=== PATIENT | male | born 1935 | race Caucasian/White ===

== ENCOUNTER 2017-05-15 22:39 | Inpatient (IN) | payer OTHER ==
[2017-05-15] MEDS ORDERED: ASPIRIN 81 MG CHEWABLE TABLETS PO ONE (22:58)
--- NOTE | 2017-05-15 22:58 | PDOC ---
Rapid Medical Evaluation Time Seen by Provider: 05/15/17 22:54 Medical Evaluation: 05/15/17 22:54 I have performed a brief in-person evaluation of this patient. The patient presents with a chief complaint of: 25 days cough, SOB, dypsnea on exertion and orthopnea, intermittent swelling to legs x 1 month Pertinent physical exam findings: edema to b/l legs, expiratory wheezing b/l I have ordered the following: cardiac workup The patient will proceed to the ED for further evaluation. Discharge Disposition - Diagnosis Shortness of breath - Referrals - Patient Instructions - Post Discharge Activity
[2017-05-15] MEDS ORDERED: ASPIRIN 81 MG CHEWABLE TABLETS ONE (23:06)
[2017-05-16 00:48] LABS: BASO % 0.6 % (0-2.0); HEMATOCRIT 30.2 % (35.4-49); HEMOGLOBIN 9.3 GM/dL (11.7-16.9); LYMPH % 19.7 % (8-40); MCHC 30.7 g/dl (32.0-35.9); MEAN CELL VOLUME 81.7 fl (80-96); MEAN PLT VOLUME 7.1 fl (7.5-11.1); MONO % 11.4 % (3.8-10.2); NEUT % 66.3 % (42.8-82.8); PLATELET COUNT 183 K/MM3 (134-434); RDW 20.9 % (11.9-15.9); WHITE BLOOD COUNT 5.5 K/mm3 (4.0-10.0)
[2017-05-16 01:01] LABS: INR 1.24 (0.82-1.09)
[2017-05-16 01:11] LABS: ALBUMIN 3.5 g/dl (3.4-5.0); ANION GAP 12 (8-16); BILIRUBIN,TOTAL 0.6 mg/dL (0.2-1.0); BLOOD UREA NITROGEN 58 mg/dL (7-18); CALCIUM 8.6 mg/dL (8.5-10.1); CHLORIDE 114 mmol/L (98-107); CO2 18 mmol/L (21-32); CREATININE 5.4 mg/dL (0.7-1.3); GLUCOSE,RANDOM 85 mg/dL (74-106); MAGNESIUM 1.7 mg/dL (1.8-2.4); SGOT/AST 23 U/L (15-37); SGPT/ALT 25 U/L (12-78); SODIUM 144 mmol/L (136-145); TOT PROT 6.7 g/dl (6.4-8.2)
[2017-05-16 01:14] LABS: ALK PHOS 151 U/L (45-117); N-TERMINAL BNP 28846.07 pg/ml (5-450)
--- NOTE | 2017-05-16 01:31 | PDOC ---
History of Present Illness - General Chief Complaint: Shortness of Breath Stated Complaint: S.O.B Time Seen by Provider: 05/15/17 22:54 - History of Present Illness Initial Comments: 05/16/17 02:13 The patient is an 82 year old male with a significant PMH of AF on eliquis ( compliant), renal transplant 2007, HLD, HTN, BPH, and IDDM who was transported to the ED from the airport complaining of shortness of breath and cough. The patient was returning from the [place] and had difficulty breathing at the airport at which point he was brought here by his son. The patient reports having a progressive non-productive cough and shortness of breath for 20 days. The patient reports associated symptom of swelling in the legs b/l. The patient denies chest pain, headache, and dizziness. He receives all of his care at [facility]. Denies fevers, chills, nausea, vomiting, diarrhea, and constipation. Denies dysuria, frequency, urgency, and hematuria. Allergies: NKA Past surgical history: Renal transplant 10 years ago. Medications: Torsemide, Tacrolimus, Insulin, eliquis, labetalol Social history: No reported cigarette, alcohol, or drug use. PCP: Dr. Leary ([facility] in [place]) Past History - Past Medical History Allergies/Adverse Reactions: Allergies Allergy/AdvReac Type Severity Reaction Status Date / Time No Known Allergies Allergy Verified 05/15/17 22:58 COPD: No Diabetes: Yes - Suicide/Smoking/Psychosocial Hx Smoking History: Never smoked Have you smoked in the past 12 months: No If you are a former smoker, when did you quit?: 25 yrs ago Information on smoking cessation initiated: No Hx Alcohol Use: No Drug/Substance Use Hx: No Substance Use Type: None Review of Systems - Review of Systems Comments:: 05/16/17 02:13 GENERAL/CONSTITUTIONAL: No fever or chills. No weakness. HEAD, EYES, EARS, NOSE AND THROAT: No change in vision. No ear pain or discharge. No sore throat. GASTROINTESTINAL: No nausea, vomiting, diarrhea or constipation. GENITOURINARY: No dysuria, frequency, or change in urination. CARDIOVASCULAR: (+) Shortness of breath. No chest pain. RESPIRATORY: No cough, wheezing, or hemoptysis. MUSCULOSKELETAL: (+) Swelling in LE. No joint or muscle pain. No neck or back pain. SKIN: No rash NEUROLOGIC: No headache, vertigo, loss of consciousness, or change in strength/ sensation. ENDOCRINE: No increased thirst. No abnormal weight change. HEMATOLOGIC/LYMPHATIC: No anemia, easy bleeding, or history of blood clots. ALLERGIC/IMMUNOLOGIC: No hives or skin allergy. *Physical Exam - Vital Signs Last Vital Signs Temp Pulse Resp BP Pulse Ox 98.0 F 108 H 22 163/109 97 05/15/17 22:59 05/15/17 22:59 05/15/17 22:59 05/15/17 22:59 05/15/17 22:59 - Physical Exam Comments: 05/16/17 02:14 GENERAL: Speaking in 4-5 word sentences. Awake, alert, and fully oriented. HEAD: No signs of trauma EYES: PERRLA, EOMI, sclera anicteric, conjunctiva clear ENT: Auricles normal inspection, hearing grossly normal, nares patent, oropharynx clear without exudates. Moist mucosa NECK: Normal ROM, supple, no lymphadenopathy, JVD, or masses LUNGS: (+) Diminished breath sounds at bases of lungs. No wheezes, and no crackles HEART: Irregularly irregular, normal S1 and S2, no murmurs, rubs or gallops ABDOMEN: (+)Palpable non tender transplanted kidney with overlying scar c/d/i. Soft, nontender, normoactive bowel sounds. No guarding, no rebound. No masses EXTREMITIES: (+)LUE fistula. (+) B/l LE 1+ pitting edema, symmetric. Normal range of motion. No clubbing or cyanosis. No cords, erythema, or tenderness BACK: No midline spinal tenderness in cervical/thoracic/lumbar region NEUROLOGICAL: Normal speech, cranial nerves intact, negative pronator drift, 5/ 5 strength in all 4 extremities, normal sensation to light touch in all 4 extremities, normal cerebellar exam. SKIN: Warm, Dry, normal turgor, no rashes or lesions noted. Heart Score/ECG Review #1 05/16/17 02:14 Twelve-lead EKG was performed and reviewed by me. Atrial fibrillation with rapid ventricular response, rate 106. Normal axis. No ST elevations ED Treatment Course - LABORATORY CBC & Chemistry Diagram: 05/16/17 00:41 04/11/18 00:41 - ADDITIONAL ORDERS Additional order review: Laboratory Results 05/16/17 05/16/17 00:41 00:41 PT with INR 14.00 H INR 1.24 H Sodium 144 Potassium 5.0 Chloride 114 H Carbon Dioxide 18 L Anion Gap 12 BUN 58 H Creatinine 5.4 H Creat Clearance w eGFR 10.27 Random Glucose 85 Calcium 8.6 Magnesium 1.7 L Total Bilirubin 0.6 AST 23 ALT 25 Alkaline Phosphatase 151 H Creatine Kinase 265 Troponin I < 0.02 B-Natriuretic Peptide 38735.07 H Total Protein 6.7 Albumin 3.5 05/16/17 00:41 RBC 3.70 L MCV 81.7 MCHC 30.7 L RDW 20.9 H MPV 7.1 L Neutrophils % 66.3 Lymphocytes % 19.7 Monocytes % 11.4 H Eosinophils % 2.0 Basophils % 0.6 - Medications Given in the ED: ED Medications Discontinued Medications Generic Name Dose Route Start Last Admin Trade Name Freq PRN Reason Stop Dose Admin Aspirin 162 mg 05/15/17 22:58 05/15/17 23:08 Asa - PO 05/15/17 22:59 162 mg ONCE ONE Administration Medical Decision Making - Medical Decision Making 05/16/17 02:16 82yo M hx MMP including renal transplant, CHF, AF on eliquis presents to the ED c/o 20 days of progressive SOB, dyspnea, LE edema. Vitals initially with tachycardia, on my exam HR 90. Exam with diminished BS at the bases with 1+ symmetric LE edema. Likely CHF given hx, LE edema, diminished BS, elevated BNP and CXR thus far with cephalization PE is a thought however, flight from is about 4 hours, and pt states he was ambulating on the flight. In addition with sxs for 20 days, unlikely to be PE. Pt also already anticoagulated on eliquis and compliant. Will obtain LE US to r/ o DVT although edema is symmetric. ACS also a possibility but trop negative, EKG non ischemic. Case discussed with Dr. Maldonado, pt admitted to [facility] obs Case discussed in detail with admitting physician including history, physical exam and ancillary studies. Admitting physician has assumed care for the patient, will follow all pending diagnostics and will complete the evaluation and treatment. *DC/Admit/Observation/Transfer Diagnosis at time of Disposition: Shortness of breath - Discharge Dispostion Admit: Yes - Referrals Referrals: ON STAFF,NOT [Primary Care Provider] - - Patient Instructions - Post Discharge Activity - Attestations Physician Attestion: 05/16/17 02:24 I, Dr. Keerthi Russo MD, attest that this document has been prepared under my direction and personally reviewed by me in its entirety. I further attest, that it accurately reflects all work, treatment, procedures and medical decision -making performed by me.
[2017-05-16] MEDS ORDERED: MAGNESIUM OXIDE 400 MG TABLET (FP) PO ONE (02:35)
--- NOTE | 2017-05-16 02:38 | HP ---
CHIEF COMPLAINT: sob PCP: Dr. Mcnamara HISTORY OF PRESENT ILLNESS: This is a 82 year old male with a past medical history of CHF, HTN, atrial fibrillation on eliquis, Renal transplant (ten years ago), presents with shortness of the breath for the last 20 days. Patient was in the [place] for the last month. He was on plane today coming back to the [place], brought in by his son straight from plane, due to persistent shortness of breath. He endorses dyspnea on exertion, bilateral leg swelling, orthopnea, occasional palpitations. Denies chest pain, n, v, lightheadedness, diaphoresis. All doctors he follows at [facility]. Had renal transplant in [place] over ten years ago, due to hypertension and diabetes, as per patient. On tacrolimus. ER course was notable for: (1)elevated bnp (2)cxr with congestion (3)anemia; elevated creatinine baseline unknown Recent Travel: PAST MEDICAL HISTORY: PAST SURGICAL HISTORY: Social History: Smoking: Alcohol: Drugs: Family History: Allergies No Known Allergies Allergy (Verified 05/15/17 22:58) HOME MEDICATIONS: REVIEW OF SYSTEMS CONSTITUTIONAL: Absent: fever, chills, diaphoresis, generalized weakness, malaise, loss of appetite, weight change HEENT: Absent: rhinorrhea, nasal congestion, throat pain, throat swelling, difficulty swallowing, mouth swelling, ear pain, eye pain, visual changes CARDIOVASCULAR: POsitive: peripheral edema Absent: chest pain, syncope, palpitations, irregular heart rate, lightheadedness , RESPIRATORY: Positive: cough, shortness of breath, dyspnea with exertion, orthopnea, Absent: wheezing, stridor, hemoptysis GASTROINTESTINAL: Absent: abdominal pain, abdominal distension, nausea, vomiting, diarrhea, constipation, melena, hematochezia GENITOURINARY: Absent: dysuria, frequency, urgency, hesitancy, hematuria, flank pain, genital pain MUSCULOSKELETAL: Absent: myalgia, arthralgia, joint swelling, back pain, neck pain SKIN: Absent: rash, itching, pallor HEMATOLOGIC/IMMUNOLOGIC: Absent: easy bleeding, easy bruising, lymphadenopathy, frequent infections ENDOCRINE: Absent: unexplained weight gain, unexplained weight loss, heat intolerance, cold intolerance NEUROLOGIC: Absent: headache, focal weakness or paresthesias, dizziness, unsteady gait, seizure, mental status changes, bladder or bowel incontinence PSYCHIATRIC: Absent: anxiety, depression, suicidal or homicidal ideation, hallucinations. PHYSICAL EXAMINATION Vital Signs - 24 hr 05/15/17 22:59 Temperature 98.0 F Pulse Rate 108 H Respiratory 22 Rate Blood Pressure 163/109 O2 Sat by Pulse 97 Oximetry (%) GENERAL: Awake, alert, and fully oriented, in no acute distress. HEAD: Normal with no signs of trauma. NECK: Normal range of motion, supple without lymphadenopathy, JVD, or masses. LUNGS: Breath sounds equal, clear to auscultation bilaterally. No wheezes, and no crackles. No accessory muscle use. HEART: Regular rate and irregular rhythm, normal S1 and S2 without murmur, rub or gallop. ABDOMEN: Soft, nontender, not distended, normoactive bowel sounds, no guarding, no rebound, no masses. No hepatomegaly or splenomegaly. MUSCULOSKELETAL: Normal range of motion at all joints. No bony deformities or tenderness. No CVA tenderness. UPPER EXTREMITIES: 2+ pulses, warm, well-perfused. No cyanosis. No clubbing. No peripheral edema. LOWER EXTREMITIES: 2+ pulses, warm, well-perfused. No calf tenderness. 2+ LE edema NEUROLOGICAL: Cranial nerves II-XII intact. Normal speech. SKIN: Warm, dry, normal turgor, no rashes or lesions noted, normal capillary refill. Laboratory Results - last 24 hr 05/16/17 05/16/17 05/16/17 00:41 00:41 00:41 WBC 5.5 RBC 3.70 L Hgb 9.3 L Hct 30.2 L MCV 81.7 MCH 25.0 L MCHC 30.7 L RDW 20.9 H Plt Count 183 MPV 7.1 L Neutrophils % 66.3 Lymphocytes % 19.7 Monocytes % 11.4 H Eosinophils % 2.0 Basophils % 0.6 PT with INR 14.00 H INR 1.24 H Sodium 144 Potassium 5.0 Chloride 114 H Carbon Dioxide 18 L Anion Gap 12 BUN 58 H Creatinine 5.4 H Creat Clearance w eGFR 10.27 Random Glucose 85 Calcium 8.6 Magnesium 1.7 L Total Bilirubin 0.6 AST 23 ALT 25 Alkaline Phosphatase 151 H Creatine Kinase 265 Creatine Kinase Index 0.9 CK-MB (CK-2) 2.412 Troponin I < 0.02 B-Natriuretic Peptide 28637.07 H Total Protein 6.7 Albumin 3.5 ASSESSMENT/PLAN: This is a 82 year old male with a significant medical history of of atrial fibrillation on eliquis, DM, HTN, s/p renal transplant, presented with sob, admitted for acute exacerbation of CHF. #acute exacerbation of CHF: -cardiac tele -strict I/O -daily weights -ecg appreciated ; atrial fib -echo pending -lasix 40mg IV daily -cardio consulted #acute vs chronic renal failure? with hx of renal transplant; n/o failing kidney -trend Cr -ua -urine lytes; magy feNA -renal/bladder US -renal consult -tacrolimus level -hold tacrolimus for now -cont home mycophenolate; f/u level -cont home bicarb -renal consult #atrial fibrillation with rapid response -rate control -echo -cont eliquis 2.5bid -cardio consulted #DM -take long acting 20U HS as home -cont levemir 20U HS -insulin ss; bgm ACHS #HTN: -cont home labetalol Visit type - Emergency Visit Emergency Visit: Yes Care time: The patient presented to the Emergency Department on the above date and was hospitalized for further evaluation of their emergent condition. - New Patient This patient is new to me today: Yes Date on this admission: 05/16/17 - Critical Care Critical Care patient: No Hospitalist Screening - Colonoscopy Questionnaire Colonoscopy Questionnaire: Colonoscopy Questionnaire - Patient: 50 - 75 years old and never had a screening colonoscopy: No History of colon or rectal polyps, or CA: Unknown History of IBD, Crohn's disease or UC: Unknown History of abdominal radiation therapy as a child: Unknown - Relative: 1 with colon or rectal CA, or polyps at age 60 or younger: Unknown Colon or rectal CA diagnosed at age 45 or younger: Unknown Multiple relatives with colon or rectal CA: Unknown - Outcome: Screening Result: Negative Screen
--- NOTE | 2017-05-16 02:53 | PN ---
Teaching Attending Note Name of Resident: Arcelia Richardson ATTENDING PHYSICIAN STATEMENT I saw and evaluated the patient. I reviewed the resident's note and discussed the case with the resident. I agree with the resident's findings and plan as documented. SUBJECTIVE: 82 M hx, of CHF, Renal tx 10 years ago, A- Fib On Eliquis, States he has had SOB X 20 days. Also with associated Bilateral LE edema. Denies any chest pain or pressure. States he flew into airport today. Notes he has been complient with his Eliquis. Denies any chest pain or pressure. OBJECTIVE: Physical: VS: Vital Signs Period Temp Pulse Resp BP Sys/Wyatt Pulse Ox Last 24 Hr 98.0 F 108 22 163/109 97 GEN: NAD, Resting in bed, AA0X3, Speaking full sentences HEENT: NCAT, PERRL, Throat without erythema or exudates CARD: IRR S1, S2 RESP: Bilateral crackles ABD: BSx4, NTD to Palpation EXT: + 2 Pitting Edema bilateral and equal. CBCD WBC 5.5 K/mm3 (4.0-10.0) 05/16/17 00:41 RBC 3.70 M/mm3 (4.00-5.60) L 05/16/17 00:41 Hgb 9.3 GM/dL (11.7-16.9) L 05/16/17 00:41 Hct 30.2 % (35.4-49) L 05/16/17 00:41 MCV 81.7 fl (80-96) 05/16/17 00:41 MCHC 30.7 g/dl (32.0-35.9) L 05/16/17 00:41 RDW 20.9 % (11.9-15.9) H 05/16/17 00:41 Plt Count 183 K/MM3 (134-434) 05/16/17 00:41 MPV 7.1 fl (7.5-11.1) L 05/16/17 00:41 CMP Sodium 144 mmol/L (136-145) 05/16/17 00:41 Potassium 5.0 mmol/L (3.5-5.1) 05/16/17 00:41 Chloride 114 mmol/L (98-107) H 05/16/17 00:41 Carbon Dioxide 18 mmol/L (21-32) L 05/16/17 00:41 Anion Gap 12 (8-16) 05/16/17 00:41 BUN 58 mg/dL (7-18) H 05/16/17 00:41 Creatinine 5.4 mg/dL (0.7-1.3) H 05/16/17 00:41 Creat Clearance w eGFR 10.27 (>60) 05/16/17 00:41 Random Glucose 85 mg/dL (74-106) 05/16/17 00:41 Calcium 8.6 mg/dL (8.5-10.1) 05/16/17 00:41 Total Bilirubin 0.6 mg/dL (0.2-1.0) 05/16/17 00:41 AST 23 U/L (15-37) 05/16/17 00:41 ALT 25 U/L (12-78) 05/16/17 00:41 Alkaline Phosphatase 151 U/L (45-117) H 05/16/17 00:41 Total Protein 6.7 g/dl (6.4-8.2) 05/16/17 00:41 Albumin 3.5 g/dl (3.4-5.0) 05/16/17 00:41 CARDIAC ENZYMES Creatine Kinase 265 IU/L (39-308) 05/16/17 00:41 Troponin I < 0.02 ng/ml (0.00-0.05) 05/16/17 00:41 EKG A-FiB CXR: Bilateral congestion ASSESSMENT AND PLAN: 82 M hx, of CHF, Renal tx 10 years ago, A- Fib On Eliquis, States he has had SOB X 20 days. Also with associated Bilateral LE edema, found to be in congestive heart failure 1.) Shortness of breath - Most Likely Acute CHF Exacerbation, Less likely PE complient with Eliquis - Echo for EF to see if Systolic HF - Lasix 40 IV - Strict I/O - Daily Weights - Na/Fluid Restrict - Trend Trop/Ekg - Cardio Consult 2.) Bilateral LE Edema - Duplex LE 3.) ARF- Hx. of Renal Tx - U [place] - Renal Us - Tacro Level - C/w Tacro/PRed/Mycophenlate - Nephro consult 4.) A- Fib - Rate Controlled - C/W BB and Eliquis 5.) Anemia Normocytic - B12, Folate, Fe studies - Hold Procrit for now 5.) DVT Ppx - On Eliquis Place in Med-Tele
[2017-05-16] MEDS ORDERED: TAMSULOSIN HCL 0.4 MG CAP.ER.24H (FP) PO ONE (03:08)
[2017-05-16] MEDS ORDERED: MAGNESIUM OXIDE 400 MG TABLET (FP) ONE (04:17)
[2017-05-16] MEDS ORDERED: ATORVASTATIN CA 40 MG TABLET (FP) ONE (04:17)
[2017-05-16] MEDS ORDERED: TAMSULOSIN HCL 0.4 MG CAP.ER.24H (FP) ONE (04:17)
[2017-05-16] MEDS: ATORVASTATIN CA 20 MG TABLET (FP) PO SCH ×2 (04:29→21:51)
[2017-05-16 04:35] LABS: URINE APPEARANCE SLCLOUDY; URINE BILIRUBIN NEGATIVE (<2.0 mg/dL); URINE COLOR YELLOW; URINE GLUCOSE (UA) NEGATIVE (NEGATIVE); URINE KETONE NEGATIVE (NEGATIVE); URINE NITRITE NEGATIVE (NEGATIVE); URINE UROBILINOGEN NEGATIVE mg/dL (0.2-1.0)
[2017-05-16 04:49] LABS: URINE LEUK ESTERASE 3+ (NEGATIVE); URINE PROTEIN 2+ (NEGATIVE)
[2017-05-16 04:53] LABS: EPI CELLS RARE /HPF (FEW); URINE BACTERIA RARE /hpf (NONE SEEN); URINE MUCUS RARE
[2017-05-16] MEDS: SODIUM BICARBONATE 325 MG TABLET PO SCH ×3 (07:30→22:29)
[2017-05-16 08:25] LABS: BASO % 0.5 % (0-2.0); EOS % 1.9 % (0-4.5); HEMATOCRIT 29.4 % (35.4-49); LYMPH % 19.5 % (8-40); MCH 24.8 pg (25.7-33.7); MCHC 30.6 g/dl (32.0-35.9); MEAN CELL VOLUME 81.2 fl (80-96); MEAN PLT VOLUME 7.8 fl (7.5-11.1); NEUT % 67.1 % (42.8-82.8); PLATELET COUNT 189 K/MM3 (134-434); RBC 3.62 M/mm3 (4.00-5.60); RDW 21.1 % (11.9-15.9); WHITE BLOOD COUNT 4.8 K/mm3 (4.0-10.0)
[2017-05-16] MEDS: INSULIN SLIDING SCALE (NOVOLOG) 1 VIAL SQ SCH ×4 (08:40→21:55)
[2017-05-16 08:57] LABS: ALBUMIN 3.3 g/dl (3.4-5.0); ANION GAP 11 (8-16); BLOOD UREA NITROGEN 62 mg/dL (7-18); CALCIUM 8.3 mg/dL (8.5-10.1); CHLORIDE 115 mmol/L (98-107); CO2 18 mmol/L (21-32); POTASSIUM 5.2 mmol/L (3.5-5.1); SODIUM 144 mmol/L (136-145)
[2017-05-16 09:01] LABS: ALK PHOS 144 U/L (45-117); BILIRUBIN,TOTAL 0.5 mg/dL (0.2-1.0); CHOLESTEROL 116 mg/dL (50-200); CREATININE 5.2 mg/dL (0.7-1.3); GLUCOSE,RANDOM 84 mg/dL (74-106); HDL CHOLESTEROL 39 mg/dL (40-60); MAGNESIUM 1.7 mg/dL (1.8-2.4); PHOSPHOROUS 4.4 mg/dL (2.5-4.9); SGOT/AST 25 U/L (15-37); SGPT/ALT 25 U/L (12-78); TOT PROT 6.1 g/dl (6.4-8.2); TRIGLYCERIDES 96 mg/dL (35-160)
--- NOTE | 2017-05-16 09:37 | CON.CARD ---
Consult Consult Specialty:: Cardiology - History of Present Illness History of Present Illness: 82 M hx, of CHF, Renal tx 10 years ago, A- Fib On Eliquis, States he has had SOB X 20 days. Also with associated Bilateral LE edema. Denies any chest pain or pressure. States he flew into airport today. Notes he has been complient with his Eliquis. Denies any chest pain or pressure. 82 yo M with PMHx of AF on eliquis (compliant), renal transplant 2007, HLD, HTN , BPH, and IDDM who was transported to the ED from the airport complaining of MCCLURE and cough. The patient was returning from the [facility] [place] and had difficulty breathing at the airport at which point he was brought here by his son. The patient reports having a progressive non-productive cough and shortness of breath for 20 days. The patient reports associated symptom of swelling in the legs b/l.He endorses increased orthopnea requiring 2 pillows at night. Denies increase in salt intake. He receives all of his care at [facility]. He last saw his line locator prior to his trip appox. 1 month ago and he states that at that time his Cr. was 5. The patient denies chest pain , headache, and dizziness. - History Source History Provided By: Patient, Medical Record - Past Medical History Cardio/Vascular: Yes: HTN - Alcohol/Substance Use Hx Alcohol Use: No - Smoking History Smoking history: Never smoked Have you smoked in the past 12 months: No If you are a former smoker, when did you quit?: 25 yrs ago Home Medications - Allergies Allergies/Adverse Reactions: Allergies Allergy/AdvReac Type Severity Reaction Status Date / Time No Known Allergies Allergy Verified 05/15/17 22:58 - Home Medications Home Medications: Ambulatory Orders Apixaban [Eliquis] 2.5 mg PO DAILY 05/16/17 Epoetin Rich [Procrit] 20,000 unit IJ WEEKLY 05/16/17 Labetalol HCl 300 mg PO TID 05/16/17 Mycophenolate Mofetil [Cellcept -] 250 mg PO BID 05/16/17 Nifedipine [Procardia Xl] 30 mg PO DAILY 05/16/17 Simvastatin 20 mg PO DAILY 05/16/17 Sodium Bicarbonate 10 gr PO BID 05/16/17 Tacrolimus 1 mg PO BID 05/16/17 Tamsulosin HCl [Flomax -] 0.4 mg PO 05/16/17 Torsemide 20 mg PO DAILY 05/16/17 Review of Systems - Review of Systems Constitutional: reports: No Symptoms Eyes: reports: No Symptoms HENT: reports: No Symptoms Neck: reports: No Symptoms Cardiovascular: reports: Edema Respiratory: reports: Orthopnea, PND, SOB Gastrointestinal: reports: No Symptoms Genitourinary: reports: No Symptoms Breasts: reports: No Symptoms Reported Musculoskeletal: reports: No Symptoms Integumentary: reports: No Symptoms Neurological: reports: No Symptoms Endocrine: reports: No Symptoms Hematology/Lymphatic: reports: No Symptoms Psychiatric: reports: No Symptoms Vital Signs: Vital Signs Temperature 98.4 F 05/16/17 08:55 Pulse Rate 97 H 05/16/17 08:55 Respiratory Rate 20 05/16/17 08:55 Blood Pressure 151/93 05/16/17 09:13 O2 Sat by Pulse Oximetry (%) 96 05/16/17 08:55 Constitutional: Yes: Well Nourished, No Distress, Calm Eyes: Yes: WNL, Conjunctiva Clear, EOM Intact HENT: Yes: WNL, Atraumatic, Normocephalic Neck: Yes: WNL, Supple, Trachea Midline Respiratory: Yes: WNL, Regular, CTA Bilaterally Gastrointestinal: Yes: WNL, Normal Bowel Sounds Renal/: Yes: WNL Cardiovascular: Yes: Pulse Irregular Musculoskeletal: Yes: WNL Extremities: Yes: WNL Edema: Yes Edema: LLE: 2+, RLE: 2+ Integumentary: Yes: WNL Neurological: Yes: WNL, Alert, Oriented ...Motor Strength: WNL Psychiatric: Yes: WNL, Alert, Oriented - Other Data Labs, Other Data: CBC, BMP 05/16/17 07:14 05/16/17 07:14 INR, PTT INR 1.24 (0.82-1.09) H 05/16/17 00:41 Troponin, BNP 05/16/17 05/16/17 00:41 07:14 Troponin I < 0.02 0.02 B-Natriuretic Peptide 93532.07 H Troponin, BNP 05/16/17 05/16/17 00:41 07:14 Troponin I < 0.02 0.02 B-Natriuretic Peptide 96737.07 H Laboratory Tests 05/16/17 05/16/17 05/16/17 00:41 00:41 00:41 WBC 5.5 RBC 3.70 L Hgb 9.3 L Hct 30.2 L MCV 81.7 MCH 25.0 L MCHC 30.7 L RDW 20.9 H Plt Count 183 MPV 7.1 L Neutrophils % 66.3 Lymphocytes % 19.7 Monocytes % 11.4 H Eosinophils % 2.0 Basophils % 0.6 PT with INR 14.00 H INR 1.24 H Sodium 144 Potassium 5.0 Chloride 114 H Carbon Dioxide 18 L Anion Gap 12 BUN 58 H Creatinine 5.4 H Creat Clearance w eGFR 10.27 POC Glucometer Random Glucose 85 Calcium 8.6 Phosphorus Magnesium 1.7 L Total Bilirubin 0.6 AST 23 ALT 25 Alkaline Phosphatase 151 H Creatine Kinase 265 Creatine Kinase Index 0.9 CK-MB (CK-2) 2.412 Troponin I < 0.02 B-Natriuretic Peptide 23981.07 H Total Protein 6.7 Albumin 3.5 Triglycerides Cholesterol Total LDL Cholesterol HDL Cholesterol TSH Urine Color Urine Appearance Urine pH Ur Specific Jew[place] Urine Protein Urine Glucose (UA) Urine Ketones Urine Blood Urine Nitrite Urine Bilirubin Urine Urobilinogen Ur Leukocyte Esterase Urine WBC (Auto) Urine RBC (Auto) Ur Epithelial Cells Urine Bacteria Urine Mucus Ur Random Sodium Ur Random Urea Nitrogn Urine Creatinine 05/16/17 05/16/17 05/16/17 04:14 04:14 04:14 WBC RBC Hgb Hct MCV MCH MCHC RDW Plt Count MPV Neutrophils % Lymphocytes % Monocytes % Eosinophils % Basophils % PT with INR INR Sodium Potassium Chloride Carbon Dioxide Anion Gap BUN Creatinine Creat Clearance w eGFR POC Glucometer Random Glucose Calcium Phosphorus Magnesium Total Bilirubin AST ALT Alkaline Phosphatase Creatine Kinase Creatine Kinase Index CK-MB (CK-2) Troponin I B-Natriuretic Peptide Total Protein Albumin Triglycerides Cholesterol Total LDL Cholesterol HDL Cholesterol TSH Urine Color Yellow Urine Appearance Slcloudy Urine pH 6.0 Ur Specific Jewett 1.011 Urine Protein 2+ H Urine Glucose (UA) Negative Urine Ketones Negative Urine Blood 1+ H Urine Nitrite Negative Urine Bilirubin Negative Urine Urobilinogen Negative Ur Leukocyte Esterase 3+ H Urine WBC (Auto) 215 Urine RBC (Auto) 3 Ur Epithelial Cells Rare Urine Bacteria Rare Urine Mucus Rare Ur Random Sodium 58 Ur Random Urea Nitrogn 467 Urine Creatinine 81.0 04/12/2305/16/17 05/16/17 07:14 07:14 07:14 WBC 4.8 RBC 3.62 L Hgb 9.0 L Hct 29.4 L MCV 81.2 MCH 24.8 L MCHC 30.6 L RDW 21.1 H Plt Count 189 MPV 7.8 Neutrophils % 67.1 Lymphocytes % 19.5 Monocytes % 11.0 H Eosinophils % 1.9 Basophils % 0.5 PT with INR INR Sodium 144 Potassium 5.2 H Chloride 115 H Carbon Dioxide 18 L Anion Gap 11 BUN 62 H Creatinine 5.2 H Creat Clearance w eGFR 10.73 POC Glucometer Random Glucose 84 Calcium 8.3 L Phosphorus 4.4 Magnesium 1.7 L Total Bilirubin 0.5 AST 25 ALT 25 Alkaline Phosphatase 144 H Creatine Kinase Creatine Kinase Index CK-MB (CK-2) Troponin I 0.02 B-Natriuretic Peptide Total Protein 6.1 L Albumin 3.3 L Triglycerides 96 Cholesterol 116 Total LDL Cholesterol 70 HDL Cholesterol 39 L TSH 1.87 Urine Color Urine Appearance Urine pH Ur Specific Jewett Urine Protein Urine Glucose (UA) Urine Ketones Urine Blood Urine Nitrite Urine Bilirubin Urine Urobilinogen Ur Leukocyte Esterase Urine WBC (Auto) Urine RBC (Auto) Ur Epithelial Cells Urine Bacteria Urine Mucus Ur Random Sodium Ur Random Urea Nitrogn Urine Creatinine 05/16/17 05/16/17 08:38 10:59 WBC RBC Hgb Hct MCV MCH MCHC RDW Plt Count MPV Neutrophils % Lymphocytes % Monocytes % Eosinophils % Basophils % PT with INR INR Sodium Potassium Chloride Carbon Dioxide Anion Gap BUN Creatinine Creat Clearance w eGFR POC Glucometer 113.91931 109.13260 Random Glucose Calcium Phosphorus Magnesium Total Bilirubin AST ALT Alkaline Phosphatase Creatine Kinase Creatine Kinase Index CK-MB (CK-2) Troponin I B-Natriuretic Peptide Total Protein Albumin Triglycerides Cholesterol Total LDL Cholesterol HDL Cholesterol TSH Urine Color Urine Appearance Urine pH Ur Specific Jewett Urine Protein Urine Glucose (UA) Urine Ketones Urine Blood Urine Nitrite Urine Bilirubin Urine Urobilinogen Ur Leukocyte Esterase Urine WBC (Auto) Urine RBC (Auto) Ur Epithelial Cells Urine Bacteria Urine Mucus Ur Random Sodium Ur Random Urea Nitrogn Urine Creatinine Imaging - Results Chest X-ray: Image Reviewed (chf CM) EKG: Image Reviewed (af rep abn) Assessment/Plan CHF chronic renal failure htn hlp dm plan echo telemetry renal consult IV lasix as per renal CAD evaluation when stable unless done recently
--- NOTE | 2017-05-16 09:59 | CONSULT ---
Consultation: REQUESTING PROVIDER: Hospitalist CONSULT REQUEST: We have been asked to medically evaluate this patient for JAQUELINE. PCP: Nephologist- Dr. Leary ([facility] in [place]) HISTORY OF PRESENT ILLNESS: 82 yo M with PMHx of AF on eliquis (compliant), renal transplant 2007, HLD, HTN , BPH, and IDDM who was transported to the ED from the airport complaining of MCCLURE and cough. The patient was returning from the [place] and had difficulty breathing at the airport at which point he was brought here by his son. The patient reports having a progressive non-productive cough and shortness of breath for 20 days. The patient reports associated symptom of swelling in the legs b/l.He endorses increased orthopnea requiring 2 pillows at night. Denies increase in salt intake. He receives all of his care at [facility]. He last saw his wellness assistant prior to his trip app[place]. 1 month ago and he states that at that time his Cr. was 5. The patient denies chest pain , headache, and dizziness. Recent Travel: [place]. PAST MEDICAL HISTORY:AF on eliquis (compliant),HLD, HTN, BPH, and IDDM PAST SURGICAL HISTORY:renal transplant 2007 Social History: Smoking:quit 25 yrs ago. 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 Family History:Mother ( of leukemia @75) Father ( of ear cancer? @104) Brother( of throat cancer @75) Allergies No Known Allergies Allergy (Verified 05/15/17 22:58) HOME MEDS: Apixaban [Eliquis] 2.5 mg PO DAILY 05/16/17 Epoetin Rich [Procrit] 20,000 unit IJ WEEKLY 05/16/17 Labetalol HCl 300 mg PO TID 05/16/17 Mycophenolate Mofetil [Cellcept -] 250 mg PO BID 05/16/17 Nifedipine [Procardia Xl] 30 mg PO DAILY 05/16/17 Simvastatin 20 mg PO DAILY 05/16/17 Sodium Bicarbonate 10 gr PO BID 05/16/17 Tacrolimus 1 mg PO BID 05/16/17 Tamsulosin HCl [Flomax -] 0.4 mg PO 05/16/17 Torsemide 20 mg PO DAILY 05/16/17 REVIEW OF SYSTEMS: CONSTITUTIONAL: Absent: fever, chills, diaphoresis, generalized weakness, malaise, loss of appetite, weight change HEENT: Absent: rhinorrhea, nasal congestion, throat pain, throat swelling, difficulty swallowing, mouth swelling, ear pain, eye pain, visual changes CARDIOVASCULAR:+ peripheral edema Absent: chest pain, syncope, palpitations, irregular heart rate, lightheadedness , RESPIRATORY: + cough, shortness of breath, dyspnea with exertion Absent:, orthopnea, wheezing, stridor, hemoptysis GASTROINTESTINAL: Absent: abdominal pain, abdominal distension, nausea, vomiting, diarrhea, constipation, melena, hematochezia GENITOURINARY: Absent: dysuria, frequency, urgency, hesitancy, hematuria, flank pain, genital pain MUSCULOSKELETAL: Absent: myalgia, arthralgia, joint swelling, back pain, neck pain SKIN: Absent: rash, itching, pallor HEMATOLOGIC/IMMUNOLOGIC: Absent: easy bleeding, easy bruising, lymphadenopathy, frequent infections ENDOCRINE: Absent: unexplained weight gain, unexplained weight loss, heat intolerance, cold intolerance NEUROLOGIC: Absent: headache, focal weakness or paresthesias, dizziness, unsteady gait, seizure, mental status changes, bladder or bowel incontinence PSYCHIATRIC: Absent: anxiety, depression, suicidal or homicidal ideation, hallucinations. PHYSICAL EXAMINATION Vital Signs - 24 hr 05/16/17 05/16/17 08:55 09:13 Temperature 98.4 F Pulse Rate Pulse Rate [ 97 H Left Radial] Respiratory 20 Rate Blood Pressure Blood Pressure 169/100 151/93 [Left Arm] O2 Sat by Pulse 96 Oximetry (%) GENERAL: AAOx3, NAD HEAD: NC/AT EYES: PERRLA, EOMI EARS, NOSE, THROAT: Moist mucous membranes. NECK: supple, No JVD LUNGS: biblasilar crackles > R side. Right sided rhonci at base. no wheezing. HEART: Irregualrly irregular, 3/6 MARTINEZ RSB ABDOMEN: Soft,obese, NT,mildly distended, normoactive bowel sounds, no guarding , no rebound,palpable transplanted kidney with scar RLQ MUSCULOSKELETAL: Normal range of motion at all joints. No bony deformities or tenderness. No CVA tenderness. UPPER Ext. : Left sided fistula. LOWER EXTREMITIES: 2+ pulses, warm, well-perfused. No calf tenderness. 2+ Edema bilaterally NEUROLOGICAL: Cranial nerves II-XII intact. Normal speech. PSYCHIATRIC: Cooperative. Good eye contact. Appropriate mood and affect. Laboratory Results - last 24 hr 05/16/17 05/16/17 05/16/17 00:41 00:41 00:41 WBC 5.5 RBC 3.70 L Hgb 9.3 L Hct 30.2 L MCV 81.7 MCH 25.0 L MCHC 30.7 L RDW 20.9 H Plt Count 183 MPV 7.1 L Neutrophils % 66.3 Lymphocytes % 19.7 Monocytes % 11.4 H Eosinophils % 2.0 Basophils % 0.6 PT with INR 14.00 H INR 1.24 H Sodium 144 Potassium 5.0 Chloride 114 H Carbon Dioxide 18 L Anion Gap 12 BUN 58 H Creatinine 5.4 H Creat Clearance w eGFR 10.27 POC Glucometer Random Glucose 85 Calcium 8.6 Phosphorus Magnesium 1.7 L Total Bilirubin 0.6 AST 23 ALT 25 Alkaline Phosphatase 151 H Creatine Kinase 265 Creatine Kinase Index 0.9 CK-MB (CK-2) 2.412 Troponin I < 0.02 B-Natriuretic Peptide 96858.07 H Total Protein 6.7 Albumin 3.5 Triglycerides Cholesterol Total LDL Cholesterol HDL Cholesterol TSH Urine Color Urine Appearance Urine pH Ur Specific [place] Urine Protein Urine Glucose (UA) Urine Ketones Urine Blood Urine Nitrite Urine Bilirubin Urine Urobilinogen Ur Leukocyte Esterase Urine WBC (Auto) Urine RBC (Auto) Ur Epithelial Cells Urine Bacteria Urine Mucus Ur Random Sodium Ur Random Urea Nitrogn Urine Creatinine 05/16/17 05/16/17 05/16/17 04:14 04:14 04:14 WBC RBC Hgb Hct MCV MCH MCHC RDW Plt Count MPV Neutrophils % Lymphocytes % Monocytes % Eosinophils % Basophils % PT with INR INR Sodium Potassium Chloride Carbon Dioxide Anion Gap BUN Creatinine Creat Clearance w eGFR POC Glucometer Random Glucose Calcium Phosphorus Magnesium Total Bilirubin AST ALT Alkaline Phosphatase Creatine Kinase Creatine Kinase Index CK-MB (CK-2) Troponin I B-Natriuretic Peptide Total Protein Albumin Triglycerides Cholesterol Total LDL Cholesterol HDL Cholesterol TSH Urine Color Yellow Urine Appearance Slcloudy Urine pH 6.0 Ur Specific [place] 1.011 Urine Protein 2+ H Urine Glucose (UA) Negative Urine Ketones Negative Urine Blood 1+ H Urine Nitrite Negative Urine Bilirubin Negative Urine Urobilinogen Negative Ur Leukocyte Esterase 3+ H Urine WBC (Auto) 215 Urine RBC (Auto) 3 Ur Epithelial Cells Rare Urine Bacteria Rare Urine Mucus Rare Ur Random Sodium 58 Ur Random Urea Nitrogn 467 Urine Creatinine 81.0 05/16/17 05/16/17 05/16/17 07:14 07:14 07:14 WBC 4.8 RBC 3.62 L Hgb 9.0 L Hct 29.4 L MCV 81.2 MCH 24.8 L MCHC 30.6 L RDW 21.1 H Plt Count 189 MPV 7.8 Neutrophils % 67.1 Lymphocytes % 19.5 Monocytes % 11.0 H Eosinophils % 1.9 Basophils % 0.5 PT with INR INR Sodium 144 Potassium 5.2 H Chloride 115 H Carbon Dioxide 18 L Anion Gap 11 BUN 62 H Creatinine 5.2 H Creat Clearance w eGFR 10.73 POC Glucometer Random Glucose 84 Calcium 8.3 L Phosphorus 4.4 Magnesium 1.7 L Total Bilirubin 0.5 AST 25 ALT 25 Alkaline Phosphatase 144 H Creatine Kinase Creatine Kinase Index CK-MB (CK-2) Troponin I 0.02 B-Natriuretic Peptide Total Protein 6.1 L Albumin 3.3 L Triglycerides 96 Cholesterol 116 Total LDL Cholesterol 70 HDL Cholesterol 39 L TSH 1.87 Urine Color Urine Appearance Urine pH Ur Specific [place] Urine Protein Urine Glucose (UA) Urine Ketones Urine Blood Urine Nitrite Urine Bilirubin Urine Urobilinogen Ur Leukocyte Esterase Urine WBC (Auto) Urine RBC (Auto) Ur Epithelial Cells Urine Bacteria Urine Mucus Ur Random Sodium Ur Random Urea Nitrogn Urine Creatinine 05/16/17 08:38 WBC RBC Hgb Hct MCV MCH MCHC RDW Plt Count MPV Neutrophils % Lymphocytes % Monocytes % Eosinophils % Basophils % PT with INR INR Sodium Potassium Chloride Carbon Dioxide Anion Gap BUN Creatinine Creat Clearance w eGFR POC Glucometer 113.92638 Random Glucose Calcium Phosphorus Magnesium Total Bilirubin AST ALT Alkaline Phosphatase Creatine Kinase Creatine Kinase Index CK-MB (CK-2) Troponin I B-Natriuretic Peptide Total Protein Albumin Triglycerides Cholesterol Total LDL Cholesterol HDL Cholesterol TSH Urine Color Urine Appearance Urine pH Ur Specific [place] Urine Protein Urine Glucose (UA) Urine Ketones Urine Blood Urine Nitrite Urine Bilirubin Urine Urobilinogen Ur Leukocyte Esterase Urine WBC (Auto) Urine RBC (Auto) Ur Epithelial Cells Urine Bacteria Urine Mucus Ur Random Sodium Ur Random Urea Nitrogn Urine Creatinine Active Medications Generic Name Dose Route Start Last Admin Trade Name Freq PRN Reason Stop Dose Admin Apixaban 2.5 mg 05/16/17 10:00 Eliquis - PO BID ANIKA Atorvastatin Calcium 20 mg 05/16/17 03:30 05/16/17 04:29 Lipitor - PO 20 mg HS ANIKA Administration Insulin Aspart 1 vial 05/16/17 07:00 05/16/17 08:40 Novolog Vial Sliding Scale - SQ Not Given ACHS [facility] Protocol Insulin Detemir 20 units 05/16/17 22:00 Levemir Vial SQ HS ANIKA Labetalol HCl 300 mg 05/16/17 10:00 Normodyne - PO BID ANIKA Mycophenolate Mofetil 250 mg 05/16/17 10:00 Cellcept - PO DAILY ANIKA Nifedipine 30 mg 05/16/17 10:00 Procardia Xl - PO DAILY ANIKA Prednisone 5 mg 05/16/17 10:00 Deltasone - PO DAILY ANIKA Sodium Bicarbonate 325 mg 05/16/17 06:00 05/16/17 07:30 Sodium Bicarbonate - PO 325 mg TID ANIKA Administration IMAGING: * US/KIDNEY / RENAL US US/PELVIC / BLADDER: US Status post renal transplant. Elevated creatinine Renal and urinary bladder ultrasound No priors available for comparison. The right kidney is echogenic measuring 8.5 cm in sagittal length with multiple tiny cysts present. A right renal pelvis transplant is identified measuring 9.7 x 5.2 cm without evidence of hydronephrosis or stones. Normal arterial and venous flow was documented. The left kidney is echogenic measuring 8.6 cm in sagittal length with a partially exophytic cyst in its mid to lower portion measuring 3.6 x 2.7 cm. Other smaller simple cysts are present The urinary bladder is partially distended with a volume of 198 cc without wall thickening. Bilateral ureteral jets were not visualized. Postvoid urine residue is 30 cc. There is a cystic like /anechoic density seen along right lateral margin of the urinary bladder. It is unclear whether this represents part of a lobulated urinary bladder versus a diverticulum measuring approximately 5 cm. Prostate gland was not visualized. Patient status post prostatectomy as per history IMPRESSION: Bilateral echogenic kidneys compatible with chronic medical renal disease. Small bilateral renal cysts with the largest simple cyst in the left kidney measuring 3.6 x 2.7 cm. Normal-appearing right pelvic renal transplant with normal vascular flow. Partially distended urinary bladder without wall thickening. Bilateral ureteral jets were not visualized. Small postvoid urine residue. Lobulated contour of the urinary bladder versus a diverticulum for which further evaluation is needed. Status post prostatectomy. Reported By: Chelle Vaughn MD ASSESSMENT/PLAN: 82 yo M with PMHx of AF on eliquis (compliant), renal transplant 2007, HLD, HTN , BPH, and IDDM admitted to telemtry for acute CHF. Dispo: We will continue to follow the patient. Thank you for this consultative opportunity. Problem List - Problems (1) JAQUELINE (acute kidney injury) Assessment/Plan: This may represent his baseline given history. Will need to confirm with [place] [place]. * Renal US did not show obstuction and reported above. * Fe Urea calculated to 48% which point to intrinsic renal problem. * will continue home meds: * Mycophenolate Mofetil (Cellcept -) 250 mg PO DAILY * Sodium Bicarbonate (Sodium Bicarbonate -) 325 mg PO TID * repeat BMP in AM (2) S/P kidney transplant Assessment/Plan: continue tarcrolimus 1mg BID * level pending. (3) Shortness of breath Assessment/Plan: most likelly acute CHF. * continue to diurese 40 mg IV lasix stat. * continue to monitor on telemetry * Echo pending. * strict I/O's * daily weights. (4) Afib Assessment/Plan: Continue Eliquis. * Rate controlled with BB (5) Diabetes Assessment/Plan: WIll cover with home Levemir 20 units HS * ADA/Na diet * BGM ACHS * ISS ACHS (6) Hypomagnesemia Assessment/Plan: replete and recheck in AM Visit type - Emergency Visit Emergency Visit: Yes ED Registration Date: 05/16/17 Care time: The patient presented to the Emergency Department on the above date and was hospitalized for further evaluation of their emergent condition. - New Patient This patient is new to me today: Yes Date on this admission: 05/16/17 - Critical Care Critical Care patient: No
[2017-05-16] MEDS ORDERED: SODIUM BICARBONATE 325 MG TABLET PO SCH (10:00)
[2017-05-16] MEDS: LABETALOL HCL 100 MG TABLET (FP) PO SCH ×2 (10:53→21:51)
[2017-05-16] MEDS: predniSONE 5 MG TABLET (UD) PO SCH (10:53)
[2017-05-16] MEDS: NIFEdipine E.R. 30 MG TABLET (FP) PO SCH (10:53)
[2017-05-16] MEDS: APIXABAN 2.5 MG TABLET PO SCH ×2 (10:53→22:28)
[2017-05-16] MEDS: MYCOPHENOLATE MOFETIL 250 MG CAPSULE PO SCH (10:54)
--- NOTE | 2017-05-16 11:32 | EKG ---
Test Reason : Blood Pressure : / mmHG Vent. Rate : 106 BPM Atrial Rate : 111 BPM P-R Int : 000 ms QRS Dur : 090 ms QT Int : 358 ms P-R-T Axes : 000 060 059 degrees QTc Int : 475 ms ATRIAL FIBRILLATION WITH RAPID VENTRICULAR RESPONSE ABNORMAL ECG NO PREVIOUS ECGS AVAILABLE Confirmed by BECK TERRAZAS, ISABELLA ([id number]) on 05/16/2017 11:31:33 AM Referred By: Confirmed By:ISABELLA SOLARES MD
[2017-05-16] MEDS ORDERED: FUROSEMIDE 40 MG/4 ML INJECTABLE VIAL IVPUSH ONE (16:15)
[2017-05-16] MEDS ORDERED: FUROSEMIDE 40 MG/4 ML INJECTABLE VIAL ONE (17:21)
--- NOTE | 2017-05-16 17:23 | PN ---
Teaching Attending Note Name of Resident: Beck Sifuentes (Nephrology) ATTENDING PHYSICIAN STATEMENT I saw and evaluated the patient. I reviewed the resident's note and discussed the case with the resident. I agree with the resident's findings and plan as documented. Nephrology Pt is an 82 year old male with pmhx of CKD, kidney transplant in 2007, HLD, HTN , BPH, and DM who presented to the ER with shortness of breath. I was called to evaluate him for elevated creatinine. He complains of increased lower ext edema. 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 He denies dysuria or hematuria. pmhx ckd, htn. dm. a- fib pshx kidney transplant social denies nkda family hx non contrib Laboratory Tests 05/16/17 05/16/17 05/16/17 00:41 00:41 04:14 WBC Hgb 9.3 L Sodium Potassium Chloride BUN 58 H Creatinine 5.4 H Urine Protein 2+ H Tacrolimus 05/16/17 05/16/17 05/16/17 07:14 07:14 07:14 WBC 4.8 Hgb 9.0 L Sodium 144 Potassium 5.2 H Chloride 115 H BUN 62 H Creatinine 5.2 H Urine Protein Tacrolimus Pending Current Medications Generic Name Dose Route Start Last Admin Trade Name Aidee PRN Reason Stop Dose Admin Apixaban 2.5 mg 05/16/17 10:00 05/16/17 10:53 Eliquis - PO 2.5 mg BID ANIKA Administration Atorvastatin Calcium 20 mg 05/16/17 03:30 05/16/17 04:29 Lipitor - PO 20 mg HS ANIKA Administration Insulin Aspart 1 vial 05/16/17 07:00 05/16/17 11:00 Novolog Vial Sliding Scale - SQ Not Given ACHS ANIKA Protocol Insulin Detemir 20 units 05/16/17 22:00 Levemir Vial SQ HS ANIKA Labetalol HCl 300 mg 05/16/17 10:00 05/16/17 10:53 Normodyne - PO 300 mg BID ANIKA Administration Mycophenolate Mofetil 250 mg 05/16/17 10:00 05/16/17 10:54 Cellcept - PO 250 mg DAILY ANIKA Administration Nifedipine 30 mg 05/16/17 10:00 05/16/17 10:53 Procardia Xl - PO 30 mg DAILY ANIKA Administration Prednisone 5 mg 05/16/17 10:00 05/16/17 10:53 Deltasone - PO 5 mg DAILY ANIKA Administration Sodium Bicarbonate 325 mg 05/16/17 06:00 05/16/17 14:13 Sodium Bicarbonate - PO 325 mg TID ANIKA Administration Tacrolimus 1 mg 05/16/17 22:00 Prograf PO BID ANIKA Last Vital Signs Temp Pulse Resp BP Pulse Ox 98.4 F 97 H 20 151/93 96 05/16/17 08:55 05/16/17 08:55 05/16/17 08:55 05/16/17 09:13 05/16/17 08:55 cardio s1s2 pulm rhonchi GI soft graft soft ext edema neuro awake and alert Impression 1. CKD 2. kidney transplant 3. dyspnea 4. a-fib 5. fluid overload 6. BPH 7. DM 8. hypomagnesemia Plan - will give a dose of IV lasix - renal function has been progressively worsening - cont transplant meds - check progaf level - pt was on torsemide at home - check u/s of graft - replace mag
[2017-05-16] MEDS: INSULIN (LEVEMIR) 100 UNITS/ML UNITS SQ SCH (21:55)
[2017-05-16] MEDS: TACROLIMUS ANHYDROUS 1 MG CAPSULE PO SCH (22:29)
[2017-05-17 01:21] VITALS: BMI 26.6
[2017-05-17] MEDS ORDERED: ALBUTEROL SO4 0.083% IH SOL 2.5 MG/3 ML VIAL.NEB. NEB PRN (02:46)
[2017-05-17 03:25] LABS: URINE APPEARANCE SLCLOUDY; URINE BILIRUBIN NEGATIVE (<2.0 mg/dL); URINE COLOR LTYELLOW; URINE GLUCOSE (UA) NEGATIVE (NEGATIVE); URINE KETONE NEGATIVE (NEGATIVE); URINE NITRITE NEGATIVE (NEGATIVE); URINE UROBILINOGEN NEGATIVE mg/dL (0.2-1.0)
[2017-05-17 03:28] LABS: URINE LEUK ESTERASE 2+ (NEGATIVE); URINE PROTEIN 2+ (NEGATIVE)
[2017-05-17 03:35] LABS: EPI CELLS RARE /HPF (FEW); URINE MUCUS RARE
[2017-05-17] MEDS: SODIUM BICARBONATE 325 MG TABLET PO SCH ×3 (05:35→22:57)
[2017-05-17] MEDS ORDERED: ALBUTEROL SO4 2.5/IPRATROPIUM 0.5 INH SOL 3 ML VIAL.NEB. NEB ONE (05:59)
[2017-05-17] MEDS: INSULIN SLIDING SCALE (NOVOLOG) 1 VIAL SQ SCH ×4 (06:04→21:07)
--- NOTE | 2017-05-17 06:34 | HOSP ---
Subjective - Review of Symptoms Events since last encounter: called by RN who reports pt with cough and wheezing despite treatment earlier in the night. Subjective: pt reports feeling a little better after second treatment but reports cough is still there Physical Examination Vital Signs: Vital Signs Temperature 97.8 F 05/17/17 05:53 Pulse Rate 95 H 05/17/17 05:53 Respiratory Rate 21 05/17/17 05:53 Blood Pressure 136/82 05/17/17 05:53 O2 Sat by Pulse Oximetry (%) 96 05/17/17 01:23 Constitutional: Yes: No Distress Cardiovascular: Yes: Regular Rate and Rhythm, S1, S2 Respiratory: Yes: Other (scattered mild expiratory wheezing. No crackles or rhochi) Gastrointestinal: Yes: Normal Bowel Sounds, Soft Labs: CBC, BMP 05/16/17 07:14 05/16/17 07:14 Hospitalist Encounter Assessment: wheezing - start duonebs QID standing - CXR this am - robitussion qid PRN
[2017-05-17] MEDS: guaiFENesin 200 MG/10 ML 10 ML UNIT-DOSE CUPS PO PRN (06:52)
[2017-05-17 07:28] LABS: BASO % 0.2 % (0-2.0); EOS % 1.8 % (0-4.5); HEMATOCRIT 26.5 % (35.4-49); HEMOGLOBIN 8.1 GM/dL (11.7-16.9); LYMPH % 21.7 % (8-40); MCH 24.7 pg (25.7-33.7); MCHC 30.5 g/dl (32.0-35.9); MEAN CELL VOLUME 80.7 fl (80-96); MEAN PLT VOLUME 7.9 fl (7.5-11.1); MONO % 12.2 % (3.8-10.2); NEUT % 64.1 % (42.8-82.8); PLATELET COUNT 191 K/MM3 (134-434); RBC 3.28 M/mm3 (4.00-5.60); WHITE BLOOD COUNT 5.2 K/mm3 (4.0-10.0)
[2017-05-17 07:48] LABS: CHLORIDE 113 mmol/L (98-107); POTASSIUM 4.9 mmol/L (3.5-5.1); SODIUM 144 mmol/L (136-145)
[2017-05-17 07:55] LABS: ALBUMIN 3.2 g/dl (3.4-5.0); ALK PHOS 130 U/L (45-117); ANION GAP 12 (8-16); BILIRUBIN,TOTAL 0.6 mg/dL (0.2-1.0); BLOOD UREA NITROGEN 64 mg/dL (7-18); CALCIUM 8.4 mg/dL (8.5-10.1); CO2 19 mmol/L (21-32); GLUCOSE,RANDOM 73 mg/dL (74-106); MAGNESIUM 1.8 mg/dL (1.8-2.4); PHOSPHOROUS 4.6 mg/dL (2.5-4.9); SGOT/AST 24 U/L (15-37); SGPT/ALT 28 U/L (12-78); TOT PROT 5.9 g/dl (6.4-8.2)
--- NOTE | 2017-05-17 09:33 | PN ---
Physical Exam: SUBJECTIVE: Patient seen and examined at bedside. Some SOB overnight. No new complaints. He states he feels better that yesterday. Breathing is improved. feels as if legs are less swollen. Denies CP,WHEELER, abdominal pain, nausea, or vomiting. OBJECTIVE: Vital Signs Period Temp Pulse Resp BP Sys/Wyatt Pulse Ox Last 24 Hr 97.5 F-98.4 F 86-97 18-21 131-153/67-82 96-96 GENERAL: AAOx3, NAD HEAD: NC/AT EYES: PERRLA, EOMI EARS, NOSE, THROAT: Moist mucous membranes. NECK: supple, No JVD LUNGS: decreased bibasilar breath sounds, no wheezing. HEART: Irregualrly irregular, 3/6 MARTINEZ RSB ABDOMEN: Soft,obese, NT,mildly distended, normoactive bowel sounds, no guarding , no rebound,palpable transplanted kidney with scar RLQ MUSCULOSKELETAL: Normal range of motion at all joints. No bony deformities or tenderness. No CVA tenderness. UPPER Ext. : Left sided fistula. LOWER EXTREMITIES: 2+ pulses, warm, well-perfused. No calf tenderness. 1+ Edema bilaterally NEUROLOGICAL: Cranial nerves II-XII intact. Normal speech. PSYCHIATRIC: Cooperative. Good eye contact. Appropriate mood and affect. Laboratory Results - last 24 hr 05/16/17 05/16/17 05/16/17 10:59 19:30 21:54 WBC RBC Hgb Hct MCV MCH MCHC RDW Plt Count MPV Neutrophils % Lymphocytes % Monocytes % Eosinophils % Basophils % Sodium Potassium Chloride Carbon Dioxide Anion Gap BUN Creatinine Creat Clearance w eGFR POC Glucometer [phone] 130 Random Glucose Calcium Phosphorus Magnesium Total Bilirubin AST ALT Alkaline Phosphatase Total Protein Albumin Urine Color Urine Appearance Urine pH Ur Specific [place] Urine Protein Urine Glucose (UA) Urine Ketones Urine Blood Urine Nitrite Urine Bilirubin Urine Urobilinogen Ur Leukocyte Esterase Urine WBC (Auto) Urine RBC (Auto) Ur Epithelial Cells Urine Mucus 05/17/17 05/17/17 05/17/17 03:07 05:33 06:50 WBC RBC Hgb Hct MCV MCH MCHC RDW Plt Count MPV Neutrophils % Lymphocytes % Monocytes % Eosinophils % Basophils % Sodium 144 Potassium 4.9 Chloride 113 H Carbon Dioxide 19 L Anion Gap 12 BUN 64 H Creatinine 5.0 H Creat Clearance w eGFR 11.22 POC Glucometer 102 Random Glucose 73 L Calcium 8.4 L Phosphorus 4.6 Magnesium 1.8 Total Bilirubin 0.6 AST 24 ALT 28 Alkaline Phosphatase 130 H Total Protein 5.9 L Albumin 3.2 L Urine Color Ltyellow Urine Appearance Slcloudy Urine pH 6.0 Ur Specific [place] 1.009 Urine Protein 2+ H Urine Glucose (UA) Negative Urine Ketones Negative Urine Blood 1+ H Urine Nitrite Negative Urine Bilirubin Negative Urine Urobilinogen Negative Ur Leukocyte Esterase 2+ H Urine WBC (Auto) 99 Urine RBC (Auto) 1 Ur Epithelial Cells Rare Urine Mucus Rare 05/17/17 06:50 WBC 5.2 RBC 3.28 L Hgb 8.1 L Hct 26.5 L MCV 80.7 MCH 24.7 L MCHC 30.5 L RDW 21.0 H Plt Count 191 MPV 7.9 Neutrophils % 64.1 Lymphocytes % 21.7 Monocytes % 12.2 H Eosinophils % 1.8 Basophils % 0.2 Sodium Potassium Chloride Carbon Dioxide Anion Gap BUN Creatinine Creat Clearance w eGFR POC Glucometer Random Glucose Calcium Phosphorus Magnesium Total Bilirubin AST ALT Alkaline Phosphatase Total Protein Albumin Urine Color Urine Appearance Urine pH Ur Specific [place] Urine Protein Urine Glucose (UA) Urine Ketones Urine Blood Urine Nitrite Urine Bilirubin Urine Urobilinogen Ur Leukocyte Esterase Urine WBC (Auto) Urine RBC (Auto) Ur Epithelial Cells Urine Mucus Active Medications Generic Name Dose Route Start Last Admin Trade Name Freq PRN Reason Stop Dose Admin Albuterol Sulfate 1 amp 05/17/17 02:46 05/17/17 03:05 Ventolin 0.083% Nebulizer Soln - NEB 1 amp Q4H PRN Administration SHORT OF BREATH/WHEEZING Albuterol/Ipratropium 1 amp 05/17/17 08:00 Duoneb - NEB RQID ANIKA Apixaban 2.5 mg 05/16/17 10:00 05/16/17 22:28 Eliquis - PO 2.5 mg BID ANIKA Administration Atorvastatin Calcium 20 mg 05/16/17 03:30 05/16/17 21:51 Lipitor - PO 20 mg HS ANIKA Administration Guaifenesin 10 ml 05/17/17 06:34 05/17/17 06:52 Robitussin - PO 10 ml Q4H PRN Administration COUGH Insulin Aspart 1 vial 05/16/17 07:00 05/17/17 06:04 Novolog Vial Sliding Scale - SQ Not Given ACHS [facility] Protocol Insulin Detemir 20 units 05/16/17 22:00 05/16/17 21:55 Levemir Vial SQ 20 units HS ANIKA Administration Labetalol HCl 300 mg 05/16/17 10:00 05/16/17 21:51 Normodyne - PO 300 mg BID ANIKA Administration Mycophenolate Mofetil 250 mg 05/16/17 10:00 05/16/17 10:54 Cellcept - PO 250 mg DAILY ANIKA Administration Nifedipine 30 mg 05/16/17 10:00 05/16/17 10:53 Procardia Xl - PO 30 mg DAILY ANIKA Administration Prednisone 5 mg 05/16/17 10:00 05/16/17 10:53 Deltasone - PO 5 mg DAILY ANIKA Administration Sodium Bicarbonate 325 mg 05/16/17 06:00 05/17/17 05:35 Sodium Bicarbonate - PO 325 mg TID ANIKA Administration Tacrolimus 1 mg 05/16/17 22:00 05/16/17 22:29 Prograf PO 1 mg BID ANIKA Administration IMAGING: * US/KIDNEY / RENAL US US/PELVIC / BLADDER: US Status post renal transplant. Elevated creatinine Renal and urinary bladder ultrasound No priors available for comparison. The right kidney is echogenic measuring 8.5 cm in sagittal length with multiple tiny cysts present. A right renal pelvis transplant is identified measuring 9.7 x 5.2 cm without evidence of hydronephrosis or stones. Normal arterial and venous flow was documented. The left kidney is echogenic measuring 8.6 cm in sagittal length with a partially exophytic cyst in its mid to lower portion measuring 3.6 x 2.7 cm. Other smaller simple cysts are present The urinary bladder is partially distended with a volume of 198 cc without wall thickening. Bilateral ureteral jets were not visualized. Postvoid urine residue is 30 cc. There is a cystic like /anechoic density seen along right lateral margin of the urinary bladder. It is unclear whether this represents part of a lobulated urinary bladder versus a diverticulum measuring approximately 5 cm. Prostate gland was not visualized. Patient status post prostatectomy as per history IMPRESSION: Bilateral echogenic kidneys compatible with chronic medical renal disease. Small bilateral renal cysts with the largest simple cyst in the left kidney measuring 3.6 x 2.7 cm. Normal-appearing right pelvic renal transplant with normal vascular flow. Partially distended urinary bladder without wall thickening. Bilateral ureteral jets were not visualized. Small postvoid urine residue. Lobulated contour of the urinary bladder versus a diverticulum for which further evaluation is needed. Status post prostatectomy. Reported By: Chelle Vaughn MD ASSESSMENT/PLAN: 82 yo M with PMHx of AF on eliquis (compliant), renal transplant 2007, HLD, HTN , BPH, and IDDM admitted to telemtry for acute CHF. Problem List - Problems (1) JAQUELINE (acute kidney injury) Assessment/Plan: renal function is stable. * Renal US did not show obstuction and reported above. * Discussed with patient the possibility of needing to go back on dialysis in the near future * will continue home meds: * Mycophenolate Mofetil (Cellcept -) 250 mg PO DAILY * Sodium Bicarbonate (Sodium Bicarbonate -) 325 mg PO TID * repeat BMP in AM (2) S/P kidney transplant Assessment/Plan: continue tarcrolimus 1mg BID * level pending. (3) Shortness of breath Assessment/Plan: most likelly acute CHF. * 40 mg IV lasix stat. * continue to monitor on telemetry * strict I/O's * daily weights. (4) Afib Assessment/Plan: Continue Eliquis. * Rate controlled with BB (5) Diabetes Assessment/Plan: WIll cover with home Levemir 20 units HS * ADA/Na diet * BGM ACHS * ISS ACHS Visit type - Emergency Visit Emergency Visit: Yes ED Registration Date: 05/16/17 Care time: The patient presented to the Emergency Department on the above date and was hospitalized for further evaluation of their emergent condition. - New Patient This patient is new to me today: No - Critical Care Critical Care patient: No
--- NOTE | 2017-05-17 09:39 | PN ---
Physical Exam: SUBJECTIVE: Patient seen and examined, states still short of breath. No chest pain, but feels breathing is not improving. OBJECTIVE: Vascular duplex negative CTA contraindicated 2/2 to renal transplant, ^ creat. Pulm consulted for further recommendations Patient is noted to be on standing predinsone 5mg On scheduled nebs Vital Signs Period Temp Pulse Resp BP Sys/Wyatt Pulse Ox Last 24 Hr 97.5 F-98.4 F 86-97 18-21 131-153/67-82 96-96 GENERAL: The patient is awake, alert, and fully oriented, in mod. resp distress HEAD: Normal with no signs of trauma. EYES: PERRL, extraocular movements intact, sclera anicteric, conjunctiva clear. No ptosis. ENT: Ears normal, nares patent, oropharynx clear without exudates, moist mucous membranes. NECK: Trachea midline, full range of motion, supple. LUNGS: course rhonchi with expiratory wheezing throughout bilateral lung [place] HEART: ST 100s on dealer sales manager ABDOMEN: Soft, nontender, nondistended, normoactive bowel sounds, no guarding, no rebound, no hepatosplenomegaly, no masses. EXTREMITIES: 2+ pulses, warm, well-perfused, no edema. NEUROLOGICAL: Normal speech, gait not observed. PSYCH: Normal mood, normal affect. SKIN: Warm, dry, normal turgor, no rashes or lesions noted Laboratory Results - last 24 hr 05/16/17 05/16/17 05/16/17 10:59 19:30 21:54 WBC RBC Hgb Hct MCV MCH MCHC RDW Plt Count MPV Neutrophils % Lymphocytes % Monocytes % Eosinophils % Basophils % Sodium Potassium Chloride Carbon Dioxide Anion Gap BUN Creatinine Creat Clearance w eGFR POC Glucometer 109.47237 186.32119 130 Random Glucose Calcium Phosphorus Magnesium Total Bilirubin AST ALT Alkaline Phosphatase Total Protein Albumin Urine Color Urine Appearance Urine pH Ur Specific [place] Urine Protein Urine Glucose (UA) Urine Ketones Urine Blood Urine Nitrite Urine Bilirubin Urine Urobilinogen Ur Leukocyte Esterase Urine WBC (Auto) Urine RBC (Auto) Ur Epithelial Cells Urine Mucus 05/17/17 05/17/17 05/17/17 03:07 05:33 06:50 WBC RBC Hgb Hct MCV MCH MCHC RDW Plt Count MPV Neutrophils % Lymphocytes % Monocytes % Eosinophils % Basophils % Sodium 144 Potassium 4.9 Chloride 113 H Carbon Dioxide 19 L Anion Gap 12 BUN 64 H Creatinine 5.0 H Creat Clearance w eGFR 11.22 POC Glucometer 102 Random Glucose 73 L Calcium 8.4 L Phosphorus 4.6 Magnesium 1.8 Total Bilirubin 0.6 AST 24 ALT 28 Alkaline Phosphatase 130 H Total Protein 5.9 L Albumin 3.2 L Urine Color Ltyellow Urine Appearance Slcloudy Urine pH 6.0 Ur Specific [place] 1.009 Urine Protein 2+ H Urine Glucose (UA) Negative Urine Ketones Negative Urine Blood 1+ H Urine Nitrite Negative Urine Bilirubin Negative Urine Urobilinogen Negative Ur Leukocyte Esterase 2+ H Urine WBC (Auto) 99 Urine RBC (Auto) 1 Ur Epithelial Cells Rare Urine Mucus Rare 05/17/17 06:50 WBC 5.2 RBC 3.28 L Hgb 8.1 L Hct 26.5 L MCV 80.7 MCH 24.7 L MCHC 30.5 L RDW 21.0 H Plt Count 191 MPV 7.9 Neutrophils % 64.1 Lymphocytes % 21.7 Monocytes % 12.2 H Eosinophils % 1.8 Basophils % 0.2 Sodium Potassium Chloride Carbon Dioxide Anion Gap BUN Creatinine Creat Clearance w eGFR POC Glucometer Random Glucose Calcium Phosphorus Magnesium Total Bilirubin AST ALT Alkaline Phosphatase Total Protein Albumin Urine Color Urine Appearance Urine pH Ur Specific [place] Urine Protein Urine Glucose (UA) Urine Ketones Urine Blood Urine Nitrite Urine Bilirubin Urine Urobilinogen Ur Leukocyte Esterase Urine WBC (Auto) Urine RBC (Auto) Ur Epithelial Cells Urine Mucus Active Medications Generic Name Dose Route Start Last Admin Trade Name Freq PRN Reason Stop Dose Admin Albuterol Sulfate 1 amp 05/17/17 02:46 05/17/17 03:05 Ventolin 0.083% Nebulizer Soln - NEB 1 amp Q4H PRN Administration SHORT OF BREATH/WHEEZING Albuterol/Ipratropium 1 amp 05/17/17 09:45 Duoneb - NEB RQID ANIKA Apixaban 2.5 mg 05/16/17 10:00 05/16/17 22:28 Eliquis - PO 2.5 mg BID ANIKA Administration Atorvastatin Calcium 20 mg 05/16/17 03:30 05/16/17 21:51 Lipitor - PO 20 mg HS ANIKA Administration Guaifenesin 10 ml 05/17/17 06:34 05/17/17 06:52 Robitussin - PO 10 ml Q4H PRN Administration COUGH Insulin Aspart 1 vial 05/16/17 07:00 05/17/17 06:04 Novolog Vial Sliding Scale - SQ Not Given ACHS ANIKA Protocol Insulin Detemir 20 units 05/16/17 22:00 05/16/17 21:55 Levemir Vial SQ 20 units HS ANIKA Administration Labetalol HCl 300 mg 05/16/17 10:00 05/16/17 21:51 Normodyne - PO 300 mg BID ANIKA Administration Mycophenolate Mofetil 250 mg 05/16/17 10:00 05/16/17 10:54 Cellcept - PO 250 mg DAILY ANIKA Administration Nifedipine 30 mg 05/16/17 10:00 05/16/17 10:53 Procardia Xl - PO 30 mg DAILY ANIKA Administration Prednisone 5 mg 05/16/17 10:00 05/16/17 10:53 Deltasone - PO 5 mg DAILY ANIKA Administration Sodium Bicarbonate 325 mg 05/16/17 06:00 05/17/17 05:35 Sodium Bicarbonate - PO 325 mg TID ANIKA Administration Tacrolimus 1 mg 05/16/17 22:00 05/16/17 22:29 Prograf PO 1 mg BID ANIKA Administration ASSESSMENT/PLAN: Patient is an 82 year old male with a significant past medical history of CHF, atrial fib, hypertension, renal transplant 10 years ago and ex smoker (quit 20 years ago). He comes to the ED on 05/16/2017 with shortness of breath. Pt states brought in by his son straight from plane, due to persistent shortness of breath. He endorses dyspnea on exertion, bilateral leg swelling, orthopnea, occasional palpitations. Patient physician are at [facility] in [facility]. Renal transplant done in [facility] 10 years ago. Shortness of breath CHF exacerbation vs. new COPD Monitor on dealer sales manager Monitor I&Os Daily weights Lasix as per renal Cardio: Atrial fib with RVR On Eliquis Rate controlled Cardiology following HTN, chronic On Labetalol Pulm: COPD, likely Scheduld duonebs Will consult pulm Supplemental oxygen For chest xray Renal Acute vs. chronic renal failure with Kidney transplant> 10yrs ago Renal transplant rejection? On Prograf and Cellcept Creat elevated, unsure of baseline Renal following Tacrolimus levels pending Bladder/renal us Endocrine: Diabetes, chronic Monitor BGMs F.E.N. Fluids: PO adequate Eectro: monitor Nutrition: diabetic diet Prophy: DVT: on Eliquis GI: deferred Dispo: full code Visit type - Emergency Visit Emergency Visit: Yes ED Registration Date: 05/16/17 Care time: The patient presented to the Emergency Department on the above date and was hospitalized for further evaluation of their emergent condition. - New Patient This patient is new to me today: Yes Date on this admission: 05/18/17 - Critical Care Critical Care patient: No - Discharge Referral Referred to [facility] Med P.C.: No
[2017-05-17] MEDS: predniSONE 5 MG TABLET (UD) PO SCH (10:05)
[2017-05-17] MEDS: LABETALOL HCL 100 MG TABLET (FP) PO SCH ×2 (10:05→21:07)
[2017-05-17] MEDS: APIXABAN 2.5 MG TABLET PO SCH ×2 (10:05→21:07)
[2017-05-17] MEDS: NIFEdipine E.R. 30 MG TABLET (FP) PO SCH (10:05)
[2017-05-17] MEDS: MYCOPHENOLATE MOFETIL 250 MG CAPSULE PO SCH (10:06)
[2017-05-17] MEDS: TACROLIMUS ANHYDROUS 1 MG CAPSULE PO SCH ×2 (10:06→22:57)
[2017-05-17] MEDS: ALBUTEROL SO4 2.5/IPRATROPIUM 0.5 INH SOL 3 ML VIAL.NEB. NEB SCH ×3 (11:30→21:00)
--- NOTE | 2017-05-17 14:51 | PN ---
Progress Note, Physician Chief Complaint: Pt is sitting up at bedside; c/o chronic bilateral ankle pain and swelling; this has kept him from exercising regularly. +Chrinic dry cough; no chest pain or dyspnea. History of Present Illness: The patient is an 82 year old male (. [facility]) with a significant PMH of AF on eliquis (compliant), renal transplant 2007, HLD, HTN, BPH, and IDDM who was [place] ED [place] the [place] complaining of shortness of breath and cough. The patient was returning from the [facility] and had difficulty breathing at the airport at which point he was brought here by his son. The patient reports having a progressive non-productive cough and shortness of breath for 20 days. The patient reports associated symptom of swelling in the legs b/l. The patient denies chest pain, headache, and dizziness. He receives all of his care at [facility]. Denies fevers, chills, nausea, vomiting, diarrhea, and constipation. - Current Medication List Current Medications: Active Medications Albuterol Sulfate (Ventolin 0.083% Nebulizer Soln -) 1 amp NEB Q4H PRN PRN Reason: SHORT OF BREATH/WHEEZING Last Admin: 05/17/17 03:05 Dose: 1 amp Albuterol/Ipratropium (Duoneb -) 1 amp NEB RQID [facility] Last Admin: 05/17/17 11:30 Dose: 1 amp Apixaban (Eliquis -) 2.5 mg PO BID [facility] Last Admin: 05/17/17 10:05 Dose: 2.5 mg Atorvastatin Calcium (Lipitor -) 20 mg PO [facility] Last Admin: 05/16/17 21:51 Dose: 20 mg Guaifenesin (Robitussin -) 10 ml PO Q4H PRN PRN Reason: COUGH Last Admin: 05/17/17 06:52 Dose: 10 ml Insulin Aspart (Novolog Vial Sliding Scale -) 1 vial SQ [facility] PRN Reason: Protocol Last Admin: 05/17/17 12:08 Dose: Not Given Insulin Detemir (Levemir Vial) 20 units SQ [facility] Last Admin: 05/16/17 21:55 Dose: 20 units Labetalol HCl (Normodyne -) 300 mg PO BID [facility] Last Admin: 05/17/17 10:05 Dose: 300 mg Mycophenolate Mofetil (Cellcept -) 250 mg PO DAILY [facility] Last Admin: 05/17/17 10:06 Dose: 250 mg Nifedipine (Procardia Xl -) 30 mg PO DAILY [facility] Last Admin: 05/17/17 10:05 Dose: 30 mg Prednisone (Deltasone -) 5 mg PO DAILY [facility] Last Admin: 05/17/17 10:05 Dose: 5 mg Sodium Bicarbonate (Sodium Bicarbonate -) 325 mg PO TID [facility] Last Admin: 05/17/17 05:35 Dose: 325 mg Tacrolimus (Prograf) 1 mg PO BID [facility] Last Admin: 05/17/17 10:06 Dose: 1 mg - Objective Vital Signs: Vital Signs Temperature 97.8 F 05/17/17 05:53 Pulse Rate 95 H 05/17/17 05:53 Respiratory Rate 21 05/17/17 05:53 Blood Pressure 136/82 05/17/17 05:53 O2 Sat by Pulse Oximetry (%) 96 05/17/17 01:23 Constitutional: Yes: No Distress Eyes: Yes: WNL HENT: Yes: WNL Neck: Yes: WNL Cardiovascular: Yes: Pulse Irregular Respiratory: Yes: Cough Gastrointestinal: Yes: Soft ...Rectal Exam: Yes: Deferred Genitourinary: No: Anuria Musculoskeletal: Yes: Muscle Weakness Extremities: Yes: Cool Edema: Yes Edema: LLE: 1+, RLE: 1+ Peripheral Pulses WNL: Yes Integumentary: Yes: WNL Neurological: Yes: Alert, Oriented, Weakness Psychiatric: Yes: WNL Labs: CBC, BMP 05/17/17 06:50 05/17/17 06:50 INR, PTT INR 1.24 (0.82-1.09) H 05/16/17 00:41 Abnormal Lab Results 05/17/17 05/17/17 05/17/17 03:07 06:50 06:50 RBC 3.28 L Hgb 8.1 L Hct 26.5 L MCH 24.7 L MCHC 30.5 L RDW 21.0 H Monocytes % 12.2 H Chloride 113 H Carbon Dioxide 19 L BUN 64 H Creatinine 5.0 H Random Glucose 73 L Calcium 8.4 L Alkaline Phosphatase 130 H Total Protein 5.9 L Albumin 3.2 L Urine Protein 2+ H Urine Blood 1+ H Ur Leukocyte Esterase 2+ H Problem List - Problems (1) Afib Assessment/Plan: Change labetolol to metoprolol ER for better AF control; f/u HR and BP. on apixaban for anticoagulation. 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 Code(s): I50.33 - ACUTE ON CHRONIC DIASTOLIC (CONGESTIVE) HEART FAILURE (6) Renal failure Assessment/Plan: f/u with certified adapted physical educator; mild improvement in BUN/Cr. Code(s): N19 - UNSPECIFIED KIDNEY FAILURE (7) Proteinuria Code(s): R80.9 - PROTEINURIA, UNSPECIFIED (8) Hyperlipidemia Assessment/Plan: on statin Code(s): E78.5 - HYPERLIPIDEMIA, UNSPECIFIED
[2017-05-17] MEDS ORDERED: FUROSEMIDE 40 MG/4 ML INJECTABLE VIAL IVPUSH ONE (15:45)
--- NOTE | 2017-05-17 16:26 | CON.PULM ---
Consult Consult Specialty:: PULM/CCM Referred by:: BEVERLEY Reason for Consultation:: SOB - History of Present Illness Chief Complaint: SOB / cough History of Present Illness: 82 M, PMHx of AF on eliquis, renal transplant 2007, HLD, HTN, BPH, and IDDM. Admitted via the ER due to MCCLURE and cough. He was returning from the [facility] [place]. He reports symptoms starting about at least 2 weeks prior to his flight. He does endorse bilateral LE edema. He reports orthopnea. No fever or chills. No hemoptysis or night sweats. CXR: LLL blunted angle / effusion/atelectasis. - History Source History Provided By: Patient Limitations to Obtaining History: No Limitations - Past Medical History Cardio/Vascular: Yes: HTN Pulmonary: No: COPD, O2 Dependent, Pulmonary Embolus - Alcohol/Substance Use Hx Alcohol Use: No - Smoking History Smoking history: Never smoked Have you smoked in the past 12 months: No If you are a former smoker, when did you quit?: 25 yrs ago Home Medications - Allergies Allergies/Adverse Reactions: Allergies Allergy/AdvReac Type Severity Reaction Status Date / Time No Known Allergies Allergy Verified 05/15/17 22:58 - Home Medications Home Medications: Ambulatory Orders Apixaban [Eliquis] 2.5 mg PO DAILY 05/16/17 Epoetin Rich [Procrit] 20,000 unit IJ WEEKLY 05/16/17 Labetalol HCl 300 mg PO TID 05/16/17 Mycophenolate Mofetil [Cellcept -] 250 mg PO BID 05/16/17 Nifedipine [Procardia Xl] 30 mg PO DAILY 05/16/17 Simvastatin 20 mg PO DAILY 05/16/17 Sodium Bicarbonate 10 gr PO BID 05/16/17 Tacrolimus 1 mg PO BID 05/16/17 Tamsulosin HCl [Flomax -] 0.4 mg PO 05/16/17 Torsemide 20 mg PO DAILY 05/16/17 Review of Systems - Review of Systems Constitutional: reports: Malaise. denies: Chills, Fever, Night Sweats Eyes: reports: No Symptoms HENT: reports: No Symptoms Neck: reports: No Symptoms Cardiovascular: reports: Edema, Shortness of Breath. denies: Chest Pain, Palpitations Respiratory: reports: Cough, Orthopnea, Snoring, SOB, SOB on Exertion. denies: Hemoptysis, Wheezing Gastrointestinal: reports: No Symptoms Genitourinary: reports: No Symptoms Breasts: reports: No Symptoms Reported Musculoskeletal: reports: No Symptoms Integumentary: reports: No Symptoms Neurological: reports: No Symptoms Endocrine: reports: No Symptoms Hematology/Lymphatic: reports: No Symptoms Psychiatric: reports: No Symptoms Physical Exam Vital Sings: Vital Signs Temperature 97.8 F 05/17/17 05:53 Pulse Rate 95 H 05/17/17 05:53 Respiratory Rate 21 05/17/17 05:53 Blood Pressure 136/82 05/17/17 05:53 O2 Sat by Pulse Oximetry (%) 96 05/17/17 01:23 Constitutional: Yes: No Distress Eyes: Yes: Conjunctiva Clear, EOM Intact HENT: Yes: Atraumatic, Normocephalic Neck: Yes: Supple, Trachea Midline Cardiovascular: Yes: Pulse Irregular Respiratory: Yes: Diminished, Rhonchi. No: Accessory Muscle Use, Rales, Stridor , Tachypnea, Wheezes ...Inspection: Yes: WNL ...Clubbing: No Gastrointestinal: Yes: Normal Bowel Sounds, Soft Breast(s): Yes: WNL Musculoskeletal: Yes: WNL Extremities: Yes: WNL Edema: Yes Peripheral Pulses WNL: Yes Integumentary: Yes: WNL Neurological: Yes: WNL, Alert, Oriented ...Motor Strength: WNL Psychiatric: Yes: WNL, Alert, Oriented Labs: CBC, BMP 05/17/17 06:50 05/17/17 06:50 Imaging - Results Chest X-ray: Report Reviewed, Image Reviewed Problem List - Problems (1) Pleural effusion Code(s): J90 - PLEURAL EFFUSION, NOT ELSEWHERE CLASSIFIED (2) Atelectasis of left lung Code(s): J98.11 - ATELECTASIS (3) Acute on chronic diastolic CHF (congestive heart failure) Code(s): I50.33 - ACUTE ON CHRONIC DIASTOLIC (CONGESTIVE) HEART FAILURE (4) Afib Code(s): I48.91 - UNSPECIFIED ATRIAL FIBRILLATION Qualifiers: Atrial fibrillation type: chronic Qualified Code(s): I48.2 - Chronic atrial fibrillation (5) Diabetes Code(s): E11.9 - TYPE 2 DIABETES MELLITUS WITHOUT COMPLICATIONS Qualifiers: Diabetes mellitus type: type 2 Diabetes mellitus longterm insulin use: with manager intermediate use Diabetes mellitus complication status: with kidney complications Diabetes mellitus complication detail: with other kidney complication Qualified Code(s): E11.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; Z79.4 - technician terminal and repeater (current) use of insulin; Z79.4 - technician terminal and repeater (current) use of insulin; Z79.4 - technician terminal and repeater (current) use of insulin ; Z79.4 - technician terminal and repeater (current) use of insulin (6) S/P kidney transplant Code(s): Z94.0 - KIDNEY TRANSPLANT STATUS (7) Shortness of breath Code(s): R06.02 - SHORTNESS OF BREATH Assessment/Plan The patient has received 2 doses of Lasix and feels clinically improved Do not suspect PE given that the patient is compliant with Eliquis, he does not have sustained tachycardia, and his LE are (-) for DVT Do not suspect respiratory tract infection so would continue to monitor off ABX O2 as needed Follow weights No smoking Would follow CXR in a few weeks as an outpatient Will follow. Dr Rubalcava
--- NOTE | 2017-05-17 16:32 | PN ---
Teaching Attending Note Name of Resident: Beck Sifuentes (Nephrology) ATTENDING PHYSICIAN STATEMENT I saw and evaluated the patient. I reviewed the resident's note and discussed the case with the resident. I agree with the resident's findings and plan as documented. Nephrology Pt seen and examine at bedside. He is awake and alert. He feels that his breathing is improved. Current Medications Generic Name Dose Route Start Last Admin Trade Name Freq PRN Reason Stop Dose Admin Albuterol Sulfate 1 amp 05/17/17 02:46 05/17/17 03:05 Ventolin 0.083% Nebulizer Soln - NEB 1 amp Q4H PRN Administration SHORT OF BREATH/WHEEZING Albuterol/Ipratropium 1 amp 05/17/17 09:45 05/17/17 11:30 Duoneb - NEB 1 amp RQID ANIKA Administration Apixaban 2.5 mg 05/16/17 10:00 05/17/17 10:05 Eliquis - PO 2.5 mg BID ANIKA Administration Atorvastatin Calcium 20 mg 05/16/17 03:30 05/16/17 21:51 Lipitor - PO 20 mg HS ANIKA Administration Guaifenesin 10 ml 05/17/17 06:34 05/17/17 06:52 Robitussin - PO 10 ml Q4H PRN Administration COUGH Insulin Aspart 1 vial 05/16/17 07:00 05/17/17 12:08 Novolog Vial Sliding Scale - SQ Not Given ACHS ANIKA Protocol Insulin Detemir 20 units 05/16/17 22:00 05/16/17 21:55 Levemir Vial SQ 20 units HS ANIKA Administration Labetalol HCl 300 mg 05/16/17 10:00 05/17/17 10:05 Normodyne - PO 300 mg BID ANIKA Administration Mycophenolate Mofetil 250 mg 05/16/17 10:00 05/17/17 10:06 Cellcept - PO 250 mg DAILY ANIKA Administration Nifedipine 30 mg 05/16/17 10:00 05/17/17 10:05 Procardia Xl - PO 30 mg DAILY ANIKA Administration Prednisone 5 mg 05/16/17 10:00 05/17/17 10:05 Deltasone - PO 5 mg DAILY ANIKA Administration Sodium Bicarbonate 325 mg 05/16/17 06:00 05/17/17 05:35 Sodium Bicarbonate - PO 325 mg TID ANIKA Administration Tacrolimus 1 mg 05/16/17 22:00 04/12/18 10:06 Prograf PO 1 mg BID ANIKA Administration Laboratory Tests 05/16/17 05/17/17 07:14 06:50 Potassium 4.9 Creatinine 5.0 H Tacrolimus Pending Last Vital Signs Temp Pulse Resp BP Pulse Ox 97.8 F 95 H 21 136/82 96 05/17/17 05:53 05/17/17 05:53 05/17/17 05:53 05/17/17 05:53 05/17/17 01:23 cardio s1s2 pulm bilateral air entry GI soft graft soft ext edema neuro awake and alert Impression 1. CKD 2. kidney transplant 3. dyspnea 4. a-fib 5. fluid overload 6. BPH 7. DM 8. hypomagnesemia Plan - potassium improved - renal function is better - will give another dose of lasix - repeat labs in am - cont current meds - avoid nsaids - will need a higher dose of torsemide when discharged
[2017-05-17] MEDS: INSULIN (LEVEMIR) 100 UNITS/ML UNITS SQ SCH (21:04)
[2017-05-17] MEDS: ATORVASTATIN CA 20 MG TABLET (FP) PO SCH (21:07)
[2017-05-18] MEDS: guaiFENesin 200 MG/10 ML 10 ML UNIT-DOSE CUPS PO PRN ×2 (00:29→09:28)
[2017-05-18] MEDS: SODIUM BICARBONATE 325 MG TABLET PO SCH ×3 (05:45→21:53)
[2017-05-18] MEDS: INSULIN SLIDING SCALE (NOVOLOG) 1 VIAL SQ SCH ×4 (06:05→22:35)
[2017-05-18] MEDS: ALBUTEROL SO4 2.5/IPRATROPIUM 0.5 INH SOL 3 ML VIAL.NEB. NEB SCH ×4 (07:20→20:33)
[2017-05-18] MEDS: predniSONE 5 MG TABLET (UD) PO SCH (09:26)
[2017-05-18] MEDS: MYCOPHENOLATE MOFETIL 250 MG CAPSULE PO SCH (09:26)
[2017-05-18] MEDS: LABETALOL HCL 100 MG TABLET (FP) PO SCH ×2 (09:27→21:53)
[2017-05-18] MEDS: APIXABAN 2.5 MG TABLET PO SCH ×2 (09:27→21:51)
[2017-05-18] MEDS: NIFEdipine E.R. 30 MG TABLET (FP) PO SCH (09:27)
[2017-05-18] MEDS: TACROLIMUS ANHYDROUS 1 MG CAPSULE PO SCH ×2 (09:28→22:56)
--- NOTE | 2017-05-18 09:47 | PN ---
Physical Exam: SUBJECTIVE: Patient seen and examined at bedside. No overnight events. No new complaints. He feels better today. Breathing still bothersome and cough persist. swelling is better. Denies CP,WHEELER, palpitations, nausea or vomiting. OBJECTIVE: Vital Signs Period Temp Pulse Resp BP Sys/Wyatt Pulse Ox Last 24 Hr 97.5 F-98.6 F 87-99 18-22 113-140/66-92 98-100 GENERAL: AAOx3, NAD HEAD: NC/AT EYES: PERRLA, EOMI EARS, NOSE, THROAT: Moist mucous membranes. NECK: supple, No JVD LUNGS: decreased bibasilar breath sounds, expiratory wheezing. . HEART: Irregualrly irregular, 3/6 MARTINEZ RSB ABDOMEN: Soft,obese, NT,mildly distended, normoactive bowel sounds, no guarding , no rebound,palpable transplanted kidney with scar RLQ MUSCULOSKELETAL: Normal range of motion at all joints. No bony deformities or tenderness. No CVA tenderness. UPPER Ext. : Left sided fistula. LOWER EXTREMITIES: 2+ pulses, warm, well-perfused. No calf tenderness. trace edema bilaterally NEUROLOGICAL: Cranial nerves II-XII intact. Normal speech. PSYCHIATRIC: Cooperative. Good eye contact. Appropriate mood and affect Laboratory Results - last 24 hr 05/16/17 05/17/17 05/17/17 07:14 11:26 17:25 POC Glucometer 110 180 Tacrolimus 3.4 05/17/17 05/18/17 20:51 05:41 POC Glucometer 202 82 Tacrolimus Active Medications Generic Name Dose Route Start Last Admin Trade Name Freq PRN Reason Stop Dose Admin Albuterol Sulfate 1 amp 05/17/17 02:46 05/17/17 03:05 Ventolin 0.083% Nebulizer Soln - NEB 1 amp Q4H PRN Administration SHORT OF BREATH/WHEEZING Albuterol/Ipratropium 1 amp 05/17/17 09:45 05/18/17 07:20 Duoneb - NEB 1 amp RQID ANIKA Administration Apixaban 2.5 mg 05/16/17 10:00 05/18/17 09:27 Eliquis - PO 2.5 mg BID ANIKA Administration Atorvastatin Calcium 20 mg 05/16/17 03:30 05/17/17 21:07 Lipitor - PO 20 mg HS ANIKA Administration Guaifenesin 10 ml 05/17/17 06:34 05/18/17 09:28 Robitussin - PO 10 ml Q4H PRN Administration COUGH Insulin Aspart 1 vial 05/16/17 07:00 05/18/17 06:05 Novolog Vial Sliding Scale - SQ Not Given ACHS [facility] Protocol Insulin Detemir 20 units 05/16/17 22:00 05/17/17 21:04 Levemir Vial SQ 20 units HS ANIKA Administration Labetalol HCl 300 mg 05/16/17 10:00 05/18/17 09:27 Normodyne - PO 300 mg BID ANIKA Administration Mycophenolate Mofetil 250 mg 05/16/17 10:00 05/18/17 09:26 Cellcept - PO 250 mg DAILY ANIKA Administration Nifedipine 30 mg 05/16/17 10:00 05/18/17 09:27 Procardia Xl - PO 30 mg DAILY ANIKA Administration Prednisone 5 mg 05/16/17 10:00 05/18/17 09:26 Deltasone - PO 5 mg DAILY ANIKA Administration Sodium Bicarbonate 325 mg 05/16/17 06:00 05/18/17 05:45 Sodium Bicarbonate - PO 325 mg TID ANIKA Administration Tacrolimus 1 mg 05/16/17 22:00 05/18/17 09:28 Prograf PO 1 mg BID ANIKA Administration ASSESSMENT/PLAN: IMAGING: * ECHO shows mod LVH, NL EF, no WMA, mod mitral and aortic valve thickening, mod , mod LA and RA dialation, mod-severe TR, mod-severe MR. * US/KIDNEY / RENAL US US/PELVIC / BLADDER: US Status post renal transplant. Elevated creatinine Renal and urinary bladder ultrasound No priors available for comparison. The right kidney is echogenic measuring 8.5 cm in sagittal length with multiple tiny cysts present. A right renal pelvis transplant is identified measuring 9.7 x 5.2 cm without evidence of hydronephrosis or stones. Normal arterial and venous flow was documented. The left kidney is echogenic measuring 8.6 cm in sagittal length with a partially exophytic cyst in its mid to lower portion measuring 3.6 x 2.7 cm. Other smaller simple cysts are present The urinary bladder is partially distended with a volume of 198 cc without wall thickening. Bilateral ureteral jets were not visualized. Postvoid urine residue is 30 cc. There is a cystic like /anechoic density seen along right lateral margin of the urinary bladder. It is unclear whether this represents part of a lobulated urinary bladder versus a diverticulum measuring approximately 5 cm. Prostate gland was not visualized. Patient status post prostatectomy as per history IMPRESSION: Bilateral echogenic kidneys compatible with chronic medical renal disease. Small bilateral renal cysts with the largest simple cyst in the left kidney measuring 3.6 x 2.7 cm. Normal-appearing right pelvic renal transplant with normal vascular flow. Partially distended urinary bladder without wall thickening. Bilateral ureteral jets were not visualized. Small postvoid urine residue. Lobulated contour of the urinary bladder versus a diverticulum for which further evaluation is needed. Status post prostatectomy. Reported By: Chelle Vaughn MD ASSESSMENT/PLAN: 82 yo M with PMHx of AF on eliquis (compliant), renal transplant 2007, HLD, HTN , BPH, and IDDM admitted to telemtry for acute CHF. Problem List - Problems (1) JAQUELINE (acute kidney injury) Assessment/Plan: renal function is stable. * Renal US did not show obstuction and reported above. * Discussed with patient the possibility of needing to go back on dialysis in the near future * will continue home meds: * Mycophenolate Mofetil (Cellcept -) 250 mg PO DAILY * Sodium Bicarbonate (Sodium Bicarbonate -) 325 mg PO TID * repeat BMP in AM (2) S/P kidney transplant Assessment/Plan: continue tarcrolimus 1mg BID * level 3.4 (3) Shortness of breath Assessment/Plan: does not appear fluid overloaded just poor air movement. * 40 mg IV lasix today * increases wheezing. * Pulmonary consulted. * continue to monitor on telemetry * Echo showed mod LVH, NL EF, no WMA, mod mitral and aortic valve thickening, mod , mod LA and RA dialation, mod-severe TR, mod-severe MR * strict I/O's * daily weights. (4) Afib Assessment/Plan: Continue Eliquis. * Rate controlled with BB (5) Diabetes Assessment/Plan: WIll cover with home Levemir 20 units HS * ADA/Na diet * BGM ACHS * ISS ACHS Visit type - Emergency Visit Emergency Visit: Yes ED Registration Date: 05/16/17 Care time: The patient presented to the Emergency Department on the above date and was hospitalized for further evaluation of their emergent condition. - New Patient This patient is new to me today: Yes Date on this admission: 05/18/17 - Critical Care Critical Care patient: No
--- NOTE | 2017-05-18 10:00 | PN ---
Progress Note, Physician History of Present Illness: 82 M hx, of CHF, Renal tx 10 years ago, A- Fib On Eliquis, States he has had SOB X 20 days. Also with associated Bilateral LE edema. Denies any chest pain or pressure. States he flew into airport today. Notes he has been complient with his Eliquis. Denies any chest pain or pressure. 82 yo M with PMHx of AF on eliquis (compliant), renal transplant 2007, HLD, HTN , BPH, and IDDM who was transported to the ED from the airport complaining of MCCLURE and cough. The patient was returning from the [facility] [place] and had difficulty breathing at the airport at which point he was brought here by his son. The patient reports having a progressive non-productive cough and shortness of breath for 20 days. The patient reports associated symptom of swelling in the legs b/l.He endorses increased orthopnea requiring 2 pillows at night. Denies increase in salt intake. He receives all of his care at [facility]. He last saw his grape cutter prior to his trip [place] 1 month ago and he states that at that time his Cr. was 5. The patient denies chest pain , headache, and dizziness. - Current Medication List Current Medications: Active Medications Albuterol Sulfate (Ventolin 0.083% Nebulizer Soln -) 1 amp NEB Q4H PRN PRN Reason: SHORT OF BREATH/WHEEZING Last Admin: 05/17/17 03:05 Dose: 1 amp Albuterol/Ipratropium (Duoneb -) 1 amp NEB RQID [facility] Last Admin: 05/18/17 07:20 Dose: 1 amp Apixaban (Eliquis -) 2.5 mg PO BID [facility] Last Admin: 05/18/17 09:27 Dose: 2.5 mg Atorvastatin Calcium (Lipitor -) 20 mg PO HS [facility] Last Admin: 05/17/17 21:07 Dose: 20 mg Guaifenesin (Robitussin -) 10 ml PO Q4H PRN PRN Reason: COUGH Last Admin: 05/18/17 09:28 Dose: 10 ml Insulin Aspart (Novolog Vial Sliding Scale -) 1 vial SQ ACHS [facility] PRN Reason: Protocol Last Admin: 05/18/17 06:05 Dose: Not Given Insulin Detemir (Levemir Vial) 20 units SQ HS [facility] Last Admin: 05/17/17 21:04 Dose: 20 units Labetalol HCl (Normodyne -) 300 mg PO BID [facility] Last Admin: 05/18/17 09:27 Dose: 300 mg Mycophenolate Mofetil (Cellcept -) 250 mg PO DAILY [facility] Last Admin: 05/18/17 09:26 Dose: 250 mg Nifedipine (Procardia Xl -) 30 mg PO DAILY [facility] Last Admin: 05/18/17 09:27 Dose: 30 mg Prednisone (Deltasone -) 5 mg PO DAILY [facility] Last Admin: 05/18/17 09:26 Dose: 5 mg Sodium Bicarbonate (Sodium Bicarbonate -) 325 mg PO TID [facility] Last Admin: 05/18/17 05:45 Dose: 325 mg Tacrolimus (Prograf) 1 mg PO BID [facility] Last Admin: 05/18/17 09:28 Dose: 1 mg - Objective Vital Signs: Vital Signs Temperature 97.9 F 05/18/17 06:00 Pulse Rate 97 H 05/18/17 06:00 Respiratory Rate 19 05/18/17 06:00 Blood Pressure 129/80 05/18/17 06:00 O2 Sat by Pulse Oximetry (%) 98 05/17/17 21:00 Eyes: Yes: WNL, Conjunctiva Clear, EOM Intact HENT: Yes: WNL, Atraumatic, Normocephalic Neck: Yes: WNL, Supple, Trachea Midline Cardiovascular: Yes: WNL, Regular Rate and Rhythm Respiratory: Yes: WNL, Regular, CTA Bilaterally Gastrointestinal: Yes: WNL, Normal Bowel Sounds Genitourinary: Yes: WNL Musculoskeletal: Yes: WNL Extremities: Yes: WNL Edema: No Integumentary: Yes: WNL Neurological: Yes: WNL, Alert, Oriented ...Motor Strength: WNL Psychiatric: Yes: WNL Labs: CBC, BMP 05/17/17 06:50 05/17/17 06:50 INR, PTT INR 1.24 (0.82-1.09) H 05/16/17 00:41 Assessment/Plan - Problems (1) Afib Assessment/Plan: IF HR not well controlled consider changing labetolol to metoprolol ER f f/u HR and BP. on apixaban for anticoagulation. Code(s): I48.91 - UNSPECIFIED ATRIAL FIBRILLATION Qualifiers: Atrial fibrillation type: chronic Qualified Code(s): I48.2 - Chronic atrial fibrillation (2) Diabetes Code(s): E11.9 - TYPE 2 DIABETES MELLITUS WITHOUT COMPLICATIONS Qualifiers: Diabetes mellitus type: type 2 Diabetes mellitus prison insulin use: with prison use Diabetes mellitus complication status: with kidney complications Diabetes mellitus complication detail: with other kidney complication Qualified Code(s): E11.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; Z79.4 - snf (current) use of insulin; Z79.4 - snf (current) use of insulin; Z79.4 - moth exterminator (current) use of insulin ; Z79.4 - moth exterminator (current) use of insulin (3) S/P kidney transplant Code(s): Z94.0 - KIDNEY TRANSPLANT STATUS (4) Shortness of breath Code(s): R06.02 - SHORTNESS OF BREATH (5) Acute on chronic diastolic CHF (congestive heart failure) Assessment/Plan: On labetolol (may change to metoprolol for better HR control of AF), nifedipine , furosemide. Code(s): I50.33 - ACUTE ON CHRONIC DIASTOLIC (CONGESTIVE) HEART FAILURE (6) Renal failure Assessment/Plan: f/u with grape cutter; mild improvement in BUN/Cr. Code(s): N19 - UNSPECIFIED KIDNEY FAILURE (7) Proteinuria Code(s): R80.9 - PROTEINURIA, UNSPECIFIED (8) Hyperlipidemia Assessment/Plan: on statin Code(s): E78.5 - HYPERLIPIDEMIA, UNSPECIFIED
--- NOTE | 2017-05-18 10:59 | PN ---
Physical Exam: SUBJECTIVE: Patient seen and examined at the bedside. Feels better today, less short of breath Now tolerating room air. OBJECTIVE: CT scan reviewed, shows COPD mod to chronic with new lung mass suspicious for malignancy Spoke to both patient and his , discussed findings Plan for a biopsy on Sunday States coughing improving with robitussin/tussin. Vital Signs Period Temp Pulse Resp BP Sys/Wyatt Pulse Ox Last 24 Hr 97.5 F-98.6 F 87-99 18-20 113-140/66-92 98 GENERAL: The patient is awake, alert, and fully oriented, in mod. resp distress HEAD: Normal with no signs of trauma. EYES: PERRL, extraocular movements intact, sclera anicteric, conjunctiva clear. No ptosis. ENT: Ears normal, nares patent, oropharynx clear without exudates, moist mucous membranes. NECK: Trachea midline, full range of motion, supple. LUNGS: mild scattered rhonchi with throughout bilateral lung hamilton improved since yesterday HEART: ST 100s on monitor car operator ABDOMEN: Soft, nontender, nondistended, normoactive bowel sounds, no guarding, no rebound, no hepatosplenomegaly, no masses. EXTREMITIES: 2+ pulses, warm, well-perfused, no edema. NEUROLOGICAL: Normal speech, gait not observed. PSYCH: Normal mood, normal affect. SKIN: Warm, dry, normal turgor, no rashes or lesions noted Laboratory Results - last 24 hr 05/16/17 05/17/17 05/17/17 07:14 11:26 17:25 POC Glucometer 110 180 Tacrolimus 3.4 05/17/17 05/18/17 20:51 05:41 POC Glucometer 202 82 Tacrolimus Active Medications Generic Name Dose Route Start Last Admin Trade Name Freq PRN Reason Stop Dose Admin Albuterol Sulfate 1 amp 05/17/17 02:46 05/17/17 03:05 Ventolin 0.083% Nebulizer Soln - NEB 1 amp Q4H PRN Administration SHORT OF BREATH/WHEEZING Albuterol/Ipratropium 1 amp 05/17/17 09:45 05/18/17 07:20 Duoneb - NEB 1 amp RQID ANIKA Administration Apixaban 2.5 mg 05/16/17 10:00 05/18/17 09:27 Eliquis - PO 2.5 mg BID ANIKA Administration Atorvastatin Calcium 20 mg 05/16/17 03:30 05/17/17 21:07 Lipitor - PO 20 mg HS ANIKA Administration Guaifenesin 10 ml 05/17/17 06:34 05/18/17 09:28 Robitussin - PO 10 ml Q4H PRN Administration COUGH Insulin Aspart 1 vial 05/16/17 07:00 05/18/17 06:05 Novolog Vial Sliding Scale - SQ Not Given ACHS [facility] Protocol Insulin Detemir 20 units 05/16/17 22:00 05/17/17 21:04 Levemir Vial SQ 20 units HS ANIKA Administration Labetalol HCl 300 mg 05/16/17 10:00 05/18/17 09:27 Normodyne - PO 300 mg BID ANIKA Administration Mycophenolate Mofetil 250 mg 05/16/17 10:00 05/18/17 09:26 Cellcept - PO 250 mg DAILY ANIKA Administration Nifedipine 30 mg 05/16/17 10:00 05/18/17 09:27 Procardia Xl - PO 30 mg DAILY ANIKA Administration Prednisone 5 mg 05/16/17 10:00 05/18/17 09:26 Deltasone - PO 5 mg DAILY ANIKA Administration Sodium Bicarbonate 325 mg 05/16/17 06:00 05/18/17 05:45 Sodium Bicarbonate - PO 325 mg TID ANIKA Administration Tacrolimus 1 mg 05/16/17 22:00 05/18/17 09:28 Prograf PO 1 mg BID ANIKA Administration ASSESSMENT/PLAN: Patient is an 82 year old male with a significant past medical history of CHF, atrial fib, hypertension, renal transplant 10 years ago and ex smoker (quit 20 years ago). He comes to the ED on 05/16/2017 with shortness of breath. Pt states brought in by his son straight from plane, due to persistent shortness of breath. He endorses dyspnea on exertion, bilateral leg swelling, orthopnea, occasional palpitations. Patient physician are at [facility] in [facility]. Renal transplant done in [facility] 10 years ago. Imaging: Chest Ct: Large right lower lobe mass strongly suspicious for malignancy. Core needle biopsy recommended. Mild to moderate COPD which right mid lobe consolidation, bilateral pleural effusions and basilar atelectasis. Mild mediastinal lymphadenopathy. Shortness of breath CHF exacerbation vs. COPD Monitor on monitor car operator Monitor I&Os Daily weights Lasix as per renal Cardio: Atrial fib with RVR On Eliquis Rate controlled Cardiology following HTN, chronic On Labetalol Pulm: COPD, new diagnosis COPD seen on CT Started on stds as per pulm Triny Large RLL mass suspicious for malignancy, discussed with Pulm and patient. For CT guided biopsy on Sunday. Patient agreeing for further workup of potential malignancy Renal Acute vs. chronic renal failure with Kidney transplant> 10yrs ago Renal transplant rejection? On Prograf and Cellcept Creat elevated, unsure of baseline Renal following Tacrolimus levels low normal Bladder/renal us Endocrine: Diabetes, chronic Monitor BGMs F.E.N. Fluids: PO adequate Eectro: monitor Nutrition: diabetic diet Prophy: DVT: on Eliquis GI: deferred Dispo: full code Visit type - Emergency Visit Emergency Visit: Yes ED Registration Date: 05/16/17 Care time: The patient presented to the Emergency Department on the above date and was hospitalized for further evaluation of their emergent condition. - New Patient This patient is new to me today: No - Critical Care Critical Care patient: No - Discharge Referral Referred to [facility] No
--- NOTE | 2017-05-18 11:41 | PN ---
Progress Note, Physician History of Present Illness: PULMONARY ALERT,LESS DYSPNEIC,+ COUGH,-CP - Current Medication List Current Medications: Active Medications Albuterol Sulfate (Ventolin 0.083% Nebulizer Soln -) 1 amp NEB Q4H PRN PRN Reason: SHORT OF BREATH/WHEEZING Last Admin: 05/17/17 03:05 Dose: 1 amp Albuterol/Ipratropium (Duoneb -) 1 amp NEB RQID [facility] Last Admin: 05/18/17 11:21 Dose: 1 amp Apixaban (Eliquis -) 2.5 mg PO BID [facility] Last Admin: 05/18/17 09:27 Dose: 2.5 mg Atorvastatin Calcium (Lipitor -) 20 mg PO HS [facility] Last Admin: 05/17/17 21:07 Dose: 20 mg Guaifenesin (Robitussin -) 10 ml PO Q4H PRN PRN Reason: COUGH Last Admin: 05/18/17 09:28 Dose: 10 ml Guaifenesin (Diabetic Tussin Dm -) 5 ml PO Q4H ONE Stop: 05/18/17 11:00 Insulin Aspart (Novolog Vial Sliding Scale -) 1 vial SQ ACHS [facility] PRN Reason: Protocol Last Admin: 05/18/17 06:05 Dose: Not Given Insulin Detemir (Levemir Vial) 20 units SQ HS [facility] Last Admin: 05/17/17 21:04 Dose: 20 units Labetalol HCl (Normodyne -) 300 mg PO BID [facility] Last Admin: 05/18/17 09:27 Dose: 300 mg Mycophenolate Mofetil (Cellcept -) 250 mg PO DAILY [facility] Last Admin: 05/18/17 09:26 Dose: 250 mg Nifedipine (Procardia Xl -) 30 mg PO DAILY [facility] Last Admin: 05/18/17 09:27 Dose: 30 mg Prednisone (Deltasone -) 5 mg PO DAILY [facility] Last Admin: 05/18/17 09:26 Dose: 5 mg Sodium Bicarbonate (Sodium Bicarbonate -) 325 mg PO TID [facility] Last Admin: 05/18/17 05:45 Dose: 325 mg Tacrolimus (Prograf) 1 mg PO BID [facility] Last Admin: 05/18/17 09:28 Dose: 1 mg - Objective Vital Signs: Vital Signs Temperature 97.9 F 05/18/17 06:00 Pulse Rate 97 H 05/18/17 06:00 Respiratory Rate 19 05/18/17 06:00 Blood Pressure 129/80 05/18/17 06:00 O2 Sat by Pulse Oximetry (%) 98 05/17/17 21:00 Constitutional: Yes: Well Nourished, Calm Eyes: Yes: WNL HENT: Yes: WNL Neck: Yes: WNL Cardiovascular: Yes: Pulse Irregular, S1, S2 Respiratory: Yes: Wheezes (SCATTERED YOSHI WHEEZES) Gastrointestinal: Yes: Normal Bowel Sounds, Soft Extremities: Yes: WNL Edema: No Labs: CBC, BMP 05/17/17 06:50 05/17/17 06:50 INR, PTT INR 1.24 (0.82-1.09) H 05/16/17 00:41 Assessment/Plan Problem List - Problems (1) Pleural effusion Code(s): J90 - PLEURAL EFFUSION, NOT ELSEWHERE CLASSIFIED (2) Atelectasis of left lung Code(s): J98.11 - ATELECTASIS (3) Acute on chronic diastolic CHF (congestive heart failure) Code(s): I50.33 - ACUTE ON CHRONIC DIASTOLIC (CONGESTIVE) HEART FAILURE (4) Afib Code(s): I48.91 - UNSPECIFIED ATRIAL FIBRILLATION Qualifiers: Atrial fibrillation type: chronic Qualified Code(s): I48.2 - Chronic atrial fibrillation (5) Diabetes Code(s): E11.9 - TYPE 2 DIABETES MELLITUS WITHOUT COMPLICATIONS Qualifiers: Diabetes mellitus type: type 2 Diabetes mellitus superintendent marine oil terminal insulin use: with penitentiary use Diabetes mellitus complication status: with kidney complications Diabetes mellitus complication detail: with other kidney complication Qualified Code(s): E11.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; Z79.4 - nursing home (current) use of insulin; Z79.4 - nursing home (current) use of insulin; Z79.4 - termite inspector (current) use of insulin ; Z79.4 - nursing home (current) use of insulin (6) S/P kidney transplant Code(s): Z94.0 - KIDNEY TRANSPLANT STATUS (7) Shortness of breath Code(s): R06.02 - SHORTNESS OF BREATH Assessment/Plan inhaled bronchodilators short course of medrol chest ct O2 as needed Follow weights No smoking DR LÓPEZ
[2017-05-18 11:45] LABS: BASO % 0.4 % (0-2.0); EOS % 2.9 % (0-4.5); HEMATOCRIT 25.8 % (35.4-49); HEMOGLOBIN 7.8 GM/dL (11.7-16.9); LYMPH % 18.8 % (8-40); MCH 24.6 pg (25.7-33.7); MCHC 30.4 g/dl (32.0-35.9); MEAN PLT VOLUME 7.3 fl (7.5-11.1); MONO % 9.7 % (3.8-10.2); NEUT % 68.2 % (42.8-82.8); PLATELET COUNT 184 K/MM3 (134-434); RBC 3.19 M/mm3 (4.00-5.60); RDW 20.8 % (11.9-15.9); WHITE BLOOD COUNT 5.4 K/mm3 (4.0-10.0)
[2017-05-18] MEDS ORDERED: INSULIN (NOVOLOG) ASPART 100 UNITS/ML 10ML VIAL ONE ×2 (11:53→18:38)
[2017-05-18] MEDS ORDERED: guaiFENesin/D-M SUGAR-FREE/ACLHOL-FREE 118 ML BOTTLE PO ONE (12:00)
[2017-05-18] MEDS: methylPREDNISolone NA SUCC 40 MG/1 ML VIAL IVPUSH SCH ×3 (12:13→21:51)
[2017-05-18 12:20] LABS: ALK PHOS 118 U/L (45-117); ANION GAP 8 (8-16); BILIRUBIN,TOTAL 0.4 mg/dL (0.2-1.0); BLOOD UREA NITROGEN 73 mg/dL (7-18); CALCIUM 7.8 mg/dL (8.5-10.1); CHLORIDE 113 mmol/L (98-107); CO2 21 mmol/L (21-32); CREATININE 4.8 mg/dL (0.7-1.3); GLUCOSE,RANDOM 90 mg/dL (74-106); MAGNESIUM 1.8 mg/dL (1.8-2.4); POTASSIUM 4.7 mmol/L (3.5-5.1); SGOT/AST 26 U/L (15-37); SGPT/ALT 30 U/L (12-78); SODIUM 142 mmol/L (136-145); TOT PROT 5.7 g/dl (6.4-8.2)
[2017-05-18] MEDS ORDERED: FUROSEMIDE 40 MG/4 ML INJECTABLE VIAL IVPUSH ONE (14:29)
--- NOTE | 2017-05-18 15:02 | PN ---
Teaching Attending Note Name of Resident: Beck Sifuentes (Nephrology) ATTENDING PHYSICIAN STATEMENT I saw and evaluated the patient. I reviewed the resident's note and discussed the case with the resident. I agree with the resident's findings and plan as documented. Renal Pt seen and examined at bedside. He is awake and alert. He feels that his breathing is improved. Current Medications Generic Name Dose Route Start Last Admin Trade Name Freq PRN Reason Stop Dose Admin Albuterol Sulfate 1 amp 05/17/17 02:46 05/17/17 03:05 Ventolin 0.083% Nebulizer Soln - NEB 1 amp Q4H PRN Administration SHORT OF BREATH/WHEEZING Albuterol/Ipratropium 1 amp 05/17/17 09:45 05/18/17 11:21 Duoneb - NEB 1 amp RQID [facility]IKA Administration Apixaban 2.5 mg 05/16/17 10:00 05/18/17 09:27 Eliquis - PO 2.5 mg BID ANIKA Administration Atorvastatin Calcium 20 mg 05/16/17 03:30 05/17/17 21:07 Lipitor - PO 20 mg HS ANIKA Administration Guaifenesin 10 ml 05/17/17 06:34 05/18/17 09:28 Robitussin - PO 10 ml Q4H PRN Administration COUGH Insulin Aspart 1 vial 05/16/17 07:00 05/18/17 12:08 Novolog Vial Sliding Scale - SQ Not Given ACHS ANIKA Protocol Insulin Detemir 20 units 05/16/17 22:00 05/17/17 21:04 Levemir Vial SQ 20 units HS ANIKA Administration Labetalol HCl 300 mg 05/16/17 10:00 05/18/17 09:27 Normodyne - PO 300 mg BID ANIKA Administration Methylprednisolone Sodium Succinate 40 mg 05/18/17 11:45 05/18/17 12:13 Solu-Medrol - IVPUSH 40 mg Q6H-IV ANIKA Administration Mycophenolate Mofetil 250 mg 05/16/17 10:00 05/18/17 09:26 Cellcept - PO 250 mg DAILY ANIKA Administration Nifedipine 30 mg 05/16/17 10:00 05/18/17 09:27 Procardia Xl - PO 30 mg DAILY [facility] Administration Prednisone 5 mg 05/16/17 10:00 05/18/17 09:26 Deltasone - PO 5 mg DAILY ANIKA Administration Sodium Bicarbonate 325 mg 05/16/17 06:00 05/18/17 14:54 Sodium Bicarbonate - PO 325 mg TID ANIKA Administration Tacrolimus 1 mg 05/16/17 22:00 05/18/17 09:28 Prograf PO 1 mg BID ANIKA Administration Last Vital Signs Temp Pulse Resp BP Pulse Ox 97.5 F L 89 20 125/76 98 05/18/17 14:00 05/18/17 14:00 05/18/17 14:00 05/18/17 14:00 05/17/17 21:00 Laboratory Tests 05/16/17 05/18/17 07:14 11:15 BUN 73 H Creatinine 4.8 H Tacrolimus 3.4 cardio s1s2 pulm bilateral air entry GI soft graft soft ext edema neuro awake and alert Impression 1. CKD 2. kidney transplant 3. dyspnea 4. a-fib 5. fluid overload 6. BPH 7. DM 8. hypomagnesemia 9. anemia Plan - renal function stabilizing - lasix today - resume torsemide at 40 mg from tomorrow - avoid nsaids - check iron studies and stool for occult blood - may need to start epogen
[2017-05-18 16:30] LABS: MYCOPHENOLIC AC 1.4 ug/mL (1.0-3.5)
[2017-05-18] MEDS ORDERED: PT OWN MED DRAWER 7, Y5N ONE (21:37)
[2017-05-18] MEDS: INSULIN (LEVEMIR) 100 UNITS/ML UNITS SQ SCH (21:52)
[2017-05-18] MEDS: ATORVASTATIN CA 20 MG TABLET (FP) PO SCH (21:52)
[2017-05-19] MEDS: methylPREDNISolone NA SUCC 40 MG/1 ML VIAL IVPUSH SCH ×4 (02:56→21:41)
[2017-05-19] MEDS: guaiFENesin/D-M SUGAR-FREE/ACLHOL-FREE 118 ML BOTTLE PO PRN ×4 (03:01→21:54)
[2017-05-19] MEDS: SODIUM BICARBONATE 325 MG TABLET PO SCH ×3 (06:41→21:42)
[2017-05-19] MEDS: INSULIN SLIDING SCALE (NOVOLOG) 1 VIAL SQ SCH ×4 (06:41→21:50)
[2017-05-19 07:25] LABS: BASO % 0.2 % (0-2.0); HEMATOCRIT 25.8 % (35.4-49); HEMOGLOBIN 7.9 GM/dL (11.7-16.9); LYMPH % 10.7 % (8-40); MCH 24.9 pg (25.7-33.7); MCHC 30.7 g/dl (32.0-35.9); MEAN CELL VOLUME 81.3 fl (80-96); MEAN PLT VOLUME 7.7 fl (7.5-11.1); MONO % 2.1 % (3.8-10.2); PLATELET COUNT 195 K/MM3 (134-434); RBC 3.17 M/mm3 (4.00-5.60); WHITE BLOOD COUNT 3.5 K/mm3 (4.0-10.0)
[2017-05-19] MEDS: ALBUTEROL SO4 2.5/IPRATROPIUM 0.5 INH SOL 3 ML VIAL.NEB. NEB SCH ×4 (07:25→20:32)
[2017-05-19 07:47] LABS: ALBUMIN 3.1 g/dl (3.4-5.0); ANION GAP 10 (8-16); BILIRUBIN,TOTAL 0.5 mg/dL (0.2-1.0); BLOOD UREA NITROGEN 85 mg/dL (7-18); CALCIUM 7.6 mg/dL (8.5-10.1); CHLORIDE 112 mmol/L (98-107); CO2 18 mmol/L (21-32); CREATININE 5.1 mg/dL (0.7-1.3); GLUCOSE,RANDOM 161 mg/dL (74-106); MAGNESIUM 1.9 mg/dL (1.8-2.4); POTASSIUM 5.6 mmol/L (3.5-5.1); SGOT/AST 19 U/L (15-37); SGPT/ALT 32 U/L (12-78); SODIUM 140 mmol/L (136-145); TOT PROT 6.1 g/dl (6.4-8.2)
[2017-05-19 07:50] LABS: ALK PHOS 114 U/L (45-117)
--- NOTE | 2017-05-19 08:41 | PN ---
Progress Note, Physician Chief Complaint: COVERAGE FOR [employer] Coughing no distress TELE: AF around 80bpm - Current Medication List Current Medications: Active Medications Albuterol Sulfate (Ventolin 0.083% Nebulizer Soln -) 1 amp NEB Q4H PRN PRN Reason: SHORT OF BREATH/WHEEZING Last Admin: 05/17/17 03:05 Dose: 1 amp Albuterol/Ipratropium (Duoneb -) 1 amp NEB RQID [facility] Last Admin: 05/18/17 20:33 Dose: 1 amp Apixaban (Eliquis -) 2.5 mg PO BID [facility] Last Admin: 05/18/17 21:51 Dose: 2.5 mg Atorvastatin Calcium (Lipitor -) 20 mg PO HS [facility] Last Admin: 05/18/17 21:52 Dose: 20 mg Guaifenesin (Diabetic Tussin Dm -) 5 ml PO Q6H PRN PRN Reason: COUGH Last Admin: 05/19/17 03:01 Dose: 5 ml Insulin Aspart (Novolog Vial Sliding Scale -) 1 vial SQ ACHS [facility] PRN Reason: Protocol Last Admin: 05/19/17 06:41 Dose: 2 unit Insulin Detemir (Levemir Vial) 20 units SQ HS [facility] Last Admin: 05/18/17 21:52 Dose: 20 units Labetalol HCl (Normodyne -) 300 mg PO BID [facility] Last Admin: 05/18/17 21:53 Dose: 300 mg Methylprednisolone Sodium Succinate (Solu-Medrol -) 40 mg IVPUSH Q6H-IV [facility] Last Admin: 05/19/17 08:05 Dose: 40 mg Mycophenolate Mofetil (Cellcept -) 250 mg PO DAILY [facility] Last Admin: 05/18/17 09:26 Dose: 250 mg Nifedipine (Procardia Xl -) 30 mg PO DAILY [facility] Last Admin: 05/18/17 09:27 Dose: 30 mg Pantoprazole Sodium (Protonix -) 40 mg PO DAILY [facility] Prednisone (Deltasone -) 5 mg PO DAILY [facility] Last Admin: 05/18/17 09:26 Dose: 5 mg Sodium Bicarbonate (Sodium Bicarbonate -) 325 mg PO TID [facility] Last Admin: 05/19/17 06:41 Dose: 325 mg Tacrolimus (Prograf) 1 mg PO BID [facility] Last Admin: 05/18/17 22:56 Dose: 1 mg - Objective Vital Signs: Vital Signs Temperature 97.8 F 05/19/17 06:00 Pulse Rate 81 05/19/17 06:00 Respiratory Rate 20 05/19/17 06:00 Blood Pressure 137/70 05/19/17 06:00 O2 Sat by Pulse Oximetry (%) 95 05/18/17 21:00 Constitutional: Yes: Calm Cardiovascular: Yes: Pulse Irregular Respiratory: Yes: Other (decreased breath sounds b/l) Gastrointestinal: Yes: Soft Edema: Yes Edema: LLE: 2+, RLE: 2+ Neurological: Yes: Alert, Oriented ...Motor Strength: WNL Labs: CBC, BMP 05/19/17 06:58 05/19/17 06:58 INR, PTT INR 1.24 (0.82-1.09) H 05/16/17 00:41 Laboratory Tests 05/19/17 05/19/17 06:58 06:58 WBC 3.5 L D Hgb 7.9 L Plt Count 195 Sodium 140 Potassium 5.6 H BUN 85 H Creatinine 5.1 H - ....Imaging EKG: Image Reviewed Assessment/Plan Shortness of breath CT with lung mass CHF exacerbation vs. COPD Monitor I&Os Daily weights Lasix as per renal Further work up mass per pulmonary Atrial fibrillation: On Eliquis Rate controlled HTN, chronic: On Labetalol Pulm: COPD, new diagnosis COPD seen on CT Started on stds as per pulm Triny Large RLL mass suspicious for malignancy. For CT guided biopsy on Sunday. Patient agreeing for further workup of potential malignancy WOULD HOLD ELIQUIS AFTER THIS EVENING'S DOSE Renal Acute vs. chronic renal failure with Kidney transplant> 10yrs ago Renal transplant rejection? On Prograf and Cellcept Creat elevated, unsure of baseline Renal following Tacrolimus levels low normal Bladder/renal us Prophy: DVT: on Eliquis
[2017-05-19] MEDS: LABETALOL HCL 100 MG TABLET (FP) PO SCH ×2 (09:58→21:41)
[2017-05-19] MEDS: predniSONE 5 MG TABLET (UD) PO SCH (09:58)
[2017-05-19] MEDS: PANTOPRAZOLE 40 MG TABLET (FP) PO SCH (09:58)
[2017-05-19] MEDS: APIXABAN 2.5 MG TABLET PO SCH ×2 (09:59→21:41)
[2017-05-19] MEDS: MYCOPHENOLATE MOFETIL 250 MG CAPSULE PO SCH (09:59)
[2017-05-19] MEDS: NIFEdipine E.R. 30 MG TABLET (FP) PO SCH (09:59)
[2017-05-19] MEDS: TACROLIMUS ANHYDROUS 1 MG CAPSULE PO SCH ×2 (10:00→21:42)
--- NOTE | 2017-05-19 15:03 | PN ---
Progress Note (short form) - Note Progress Note: No change in cough. No CP or SOB. No acute events overnight. Intake & Output 05/16/17 05/17/17 05/18/17 05/19/17 23:59 23:59 23:59 23:59 Intake Total 710 540 550 Output Total 1275 1225 750 Balance -565 -685 -200 Weight 170 lb 6 oz 170 lb 2 oz 173 lb 6.4 oz 174 lb 6 oz Last Vital Signs Temp Pulse Resp BP Pulse Ox 98 F 85 18 148/73 96 05/19/17 09:57 05/19/17 09:57 05/19/17 09:57 05/19/17 09:57 05/19/17 08:00 Active Medications Albuterol Sulfate (Ventolin 0.083% Nebulizer Soln -) 1 amp NEB Q4H PRN PRN Reason: SHORT OF BREATH/WHEEZING Last Admin: 05/17/17 03:05 Dose: 1 amp Albuterol/Ipratropium (Duoneb -) 1 amp NEB RQID [facility] Last Admin: 05/19/17 11:25 Dose: 1 amp Apixaban (Eliquis -) 2.5 mg PO BID [facility] Last Admin: 05/19/17 09:59 Dose: 2.5 mg Atorvastatin Calcium (Lipitor -) 20 mg PO HS [facility] Last Admin: 05/18/17 21:52 Dose: 20 mg Guaifenesin (Diabetic Tussin Dm -) 5 ml PO Q6H PRN PRN Reason: COUGH Last Admin: 05/19/17 09:05 Dose: 5 ml Insulin Aspart (Novolog Vial Sliding Scale -) 1 vial SQ ACHS [facility] PRN Reason: Protocol Last Admin: 05/19/17 11:26 Dose: 2 unit Insulin Detemir (Levemir Vial) 20 units SQ HS [facility] Last Admin: 05/18/17 21:52 Dose: 20 units Labetalol HCl (Normodyne -) 300 mg PO BID [facility] Last Admin: 05/19/17 09:58 Dose: 300 mg Methylprednisolone Sodium Succinate (Solu-Medrol -) 40 mg IVPUSH Q6H-IV [facility] Last Admin: 05/19/17 08:05 Dose: 40 mg Mycophenolate Mofetil (Cellcept -) 250 mg PO DAILY [facility] Last Admin: 05/19/17 09:59 Dose: 250 mg Nifedipine (Procardia Xl -) 30 mg PO DAILY [facility] Last Admin: 05/19/17 09:59 Dose: 30 mg Pantoprazole Sodium (Protonix -) 40 mg PO DAILY [facility] Last Admin: 05/19/17 09:58 Dose: 40 mg Prednisone (Deltasone -) 5 mg PO DAILY [facility] Last Admin: 05/19/17 09:58 Dose: 5 mg Sodium Bicarbonate (Sodium Bicarbonate -) 325 mg PO TID [facility] Last Admin: 05/19/17 06:41 Dose: 325 mg Tacrolimus (Prograf) 1 mg PO BID [facility] Last Admin: 05/19/17 10:00 Dose: 1 mg Constitutional: Yes: No Distress Eyes: Yes: Conjunctiva Clear, EOM Intact HENT: Yes: Atraumatic, Normocephalic Neck: Yes: Supple, Trachea Midline Cardiovascular: Yes: Pulse Irregular Respiratory: Yes: Diminished, Rhonchi. No: Accessory Muscle Use, Rales, Stridor , Tachypnea, Wheezes ...Inspection: Yes: WNL ...Clubbing: No Gastrointestinal: Yes: Normal Bowel Sounds, Soft Breast(s): Yes: WNL Musculoskeletal: Yes: WNL Extremities: Yes: WNL Edema: Yes Peripheral Pulses WNL: Yes Integumentary: Yes: WNL Neurological: Yes: WNL, Alert, Oriented ...Motor Strength: WNL Psychiatric: Yes: WNL, Alert, Oriented Labs: Laboratory Results - last 24 hr 05/16/17 05/18/17 05/18/17 14:45 17:13 21:50 WBC RBC Hgb Hct MCV MCH MCHC RDW Plt Count MPV Neutrophils % Lymphocytes % Monocytes % Eosinophils % Basophils % Sodium Potassium Chloride Carbon Dioxide Anion Gap BUN Creatinine Creat Clearance w eGFR POC Glucometer 239 356 Random Glucose Calcium Magnesium Ferritin Total Bilirubin AST ALT Alkaline Phosphatase Total Protein Albumin Mycophenolic Acid 1.4 MPA Glucuronide 115 05/19/17 05/19/17 05/19/17 06:10 06:58 06:58 WBC 3.5 L D RBC 3.17 L Hgb 7.9 L Hct 25.8 L MCV 81.3 MCH 24.9 L MCHC 30.7 L RDW 21.0 H Plt Count 195 MPV 7.7 Neutrophils % 87.0 H D Lymphocytes % 10.7 D Monocytes % 2.1 L Eosinophils % 0.0 D Basophils % 0.2 Sodium 140 Potassium 5.6 H Chloride 112 H Carbon Dioxide 18 L Anion Gap 10 BUN 85 H Creatinine 5.1 H Creat Clearance w eGFR 10.97 POC Glucometer 183 Random Glucose 161 H D Calcium 7.6 L Magnesium 1.9 Ferritin 126.601 Total Bilirubin 0.5 D AST 19 D ALT 32 Alkaline Phosphatase 114 Total Protein 6.1 L Albumin 3.1 L Mycophenolic Acid MPA Glucuronide 05/19/17 11:23 WBC RBC Hgb Hct MCV MCH MCHC RDW Plt Count MPV Neutrophils % Lymphocytes % Monocytes % Eosinophils % Basophils % Sodium Potassium Chloride Carbon Dioxide Anion Gap BUN Creatinine Creat Clearance w eGFR POC Glucometer 180 Random Glucose Calcium Magnesium Ferritin Total Bilirubin AST ALT Alkaline Phosphatase Total Protein Albumin Mycophenolic Acid MPA Glucuronide Problem List - Problems (1) Pleural effusion Code(s): J90 - PLEURAL EFFUSION, NOT ELSEWHERE CLASSIFIED (2) Atelectasis of left lung Code(s): J98.11 - ATELECTASIS (3) Acute on chronic diastolic CHF (congestive heart failure) Code(s): I50.33 - ACUTE ON CHRONIC DIASTOLIC (CONGESTIVE) HEART FAILURE (4) Afib Code(s): I48.91 - UNSPECIFIED ATRIAL FIBRILLATION Qualifiers: Atrial fibrillation type: chronic Qualified Code(s): I48.2 - Chronic atrial fibrillation (5) Diabetes Code(s): E11.9 - TYPE 2 DIABETES MELLITUS WITHOUT COMPLICATIONS Qualifiers: Diabetes mellitus type: type 2 Diabetes mellitus half-way insulin use: with half-way use Diabetes mellitus complication status: with kidney complications Diabetes mellitus complication detail: with other kidney complication Qualified Code(s): E11.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; Z79.4 - custodial (current) use of insulin; Z79.4 - salvage determiner (current) use of insulin; Z79.4 - salvage determiner (current) use of insulin ; Z79.4 - custodial (current) use of insulin (6) S/P kidney transplant Code(s): Z94.0 - KIDNEY TRANSPLANT STATUS (7) Shortness of breath Code(s): R06.02 - SHORTNESS OF BREATH Assessment/Plan Do not suspect PE given that the patient is compliant with Eliquis, he does not have sustained tachycardia, and his LE are (-) for DVT Do not suspect respiratory tract infection so would continue to monitor off ABX O2 as needed Follow weights No smoking Would follow CXR in a few weeks as an outpatient Will start to taper Medrol tomorrow Dr Rubalcava Problem List - Problems (1) Pleural effusion Code(s): J90 - PLEURAL EFFUSION, NOT ELSEWHERE CLASSIFIED (2) Atelectasis of left lung Code(s): J98.11 - ATELECTASIS (3) Acute on chronic diastolic CHF (congestive heart failure) Code(s): I50.33 - ACUTE ON CHRONIC DIASTOLIC (CONGESTIVE) HEART FAILURE (4) Afib Code(s): I48.91 - UNSPECIFIED ATRIAL FIBRILLATION Qualifiers: Atrial fibrillation type: chronic Qualified Code(s): I48.2 - Chronic atrial fibrillation (5) Diabetes Code(s): E11.9 - TYPE 2 DIABETES MELLITUS WITHOUT COMPLICATIONS Qualifiers: Diabetes mellitus type: type 2 Diabetes mellitus half-way insulin use: with half-way use Diabetes mellitus complication status: with kidney complications Diabetes mellitus complication detail: with other kidney complication Qualified Code(s): E11.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; Z79.4 - salvage determiner (current) use of insulin; Z79.4 - salvage determiner (current) use of insulin; Z79.4 - custodial (current) use of insulin ; Z79.4 - salvage determiner (current) use of insulin (6) S/P kidney transplant Code(s): Z94.0 - KIDNEY TRANSPLANT STATUS (7) Shortness of breath Code(s): R06.02 - SHORTNESS OF BREATH
--- NOTE | 2017-05-19 18:12 | PN ---
Progress Note (short form) - Note Progress Note: Subjective: The patient was seen and examined at the bedside, he has no complaints at this time. Current Medications Generic Name Dose Route Start Last Admin Trade Name Freq PRN Reason Stop Dose Admin Albuterol Sulfate 1 amp 05/17/17 02:46 05/17/17 03:05 Ventolin 0.083% Nebulizer Soln - NEB 1 amp Q4H PRN Administration SHORT OF BREATH/WHEEZING Albuterol/Ipratropium 1 amp 05/17/17 09:45 05/19/17 16:38 Duoneb - NEB 1 amp RQID ANIKA Administration Apixaban 2.5 mg 05/16/17 10:00 05/19/17 09:59 Eliquis - PO 2.5 mg BID ANIKA Administration Atorvastatin Calcium 20 mg 05/16/17 03:30 05/18/17 21:52 Lipitor - PO 20 mg HS ANIKA Administration Guaifenesin 5 ml 05/18/17 18:05 05/19/17 16:38 Diabetic Tussin Dm - PO 5 ml Q6H PRN Administration COUGH Insulin Aspart 1 vial 05/16/17 07:00 05/19/17 16:31 Novolog Vial Sliding Scale - SQ 6 unit ACHS ANIKA Administration Protocol Insulin Detemir 20 units 05/16/17 22:00 05/18/17 21:52 Levemir Vial SQ 20 units HS ANIKA Administration Labetalol HCl 300 mg 05/16/17 10:00 05/19/17 09:58 Normodyne - PO 300 mg BID ANIKA Administration Methylprednisolone Sodium Succinate 40 mg 05/18/17 11:45 05/19/17 16:12 Solu-Medrol - IVPUSH 40 mg Q6H-IV ANIKA Administration Mycophenolate Mofetil 250 mg 05/16/17 10:00 05/19/17 09:59 Cellcept - PO 250 mg DAILY ANIKA Administration Nifedipine 30 mg 05/16/17 10:00 05/19/17 09:59 Procardia Xl - PO 30 mg DAILY ANIKA Administration Pantoprazole Sodium 40 mg 05/19/17 10:00 05/19/17 09:58 Protonix - PO 40 mg DAILY ANIKA Administration Prednisone 5 mg 05/16/17 10:00 05/19/17 09:58 Deltasone - PO 5 mg DAILY ANIKA Administration Sodium Bicarbonate 325 mg 05/16/17 06:00 05/19/17 16:12 Sodium Bicarbonate - PO 325 mg TID ANIKA Administration Tacrolimus 1 mg 05/16/17 22:00 05/19/17 10:00 Prograf PO 1 mg BID ANIKA Administration Objective: Vital Signs Period Temp Pulse Resp BP Sys/Wyatt Pulse Ox Last 24 Hr 97.7 F-98.8 F 81-113 18-20 106-156/68-75 95-96 Physical Exam: CBCD WBC 3.5 K/mm3 (4.0-10.0) L D 05/19/17 06:58 RBC 3.17 M/mm3 (4.00-5.60) L 05/19/17 06:58 Hgb 7.9 GM/dL (11.7-16.9) L 05/19/17 06:58 Hct 25.8 % (35.4-49) L 05/19/17 06:58 MCV 81.3 fl (80-96) 05/19/17 06:58 MCHC 30.7 g/dl (32.0-35.9) L 05/19/17 06:58 RDW 21.0 % (11.9-15.9) H 05/19/17 06:58 Plt Count 195 K/MM3 (134-434) 05/19/17 06:58 MPV 7.7 fl (7.5-11.1) 05/19/17 06:58 CMP Sodium 140 mmol/L (136-145) 05/19/17 06:58 Potassium 5.6 mmol/L (3.5-5.1) H 05/19/17 06:58 Chloride 112 mmol/L (98-107) H 05/19/17 06:58 Carbon Dioxide 18 mmol/L (21-32) L 05/19/17 06:58 Anion Gap 10 (8-16) 05/19/17 06:58 BUN 85 mg/dL (7-18) H 05/19/17 06:58 Creatinine 5.1 mg/dL (0.7-1.3) H 05/19/17 06:58 Creat Clearance w eGFR 10.97 (>60) 05/19/17 06:58 Random Glucose 161 mg/dL (74-106) H D 05/19/17 06:58 Calcium 7.6 mg/dL (8.5-10.1) L 05/19/17 06:58 Total Bilirubin 0.5 mg/dL (0.2-1.0) D 05/19/17 06:58 AST 19 U/L (15-37) D 05/19/17 06:58 ALT 32 U/L (12-78) 05/19/17 06:58 Alkaline Phosphatase 114 U/L (45-117) 05/19/17 06:58 Total Protein 6.1 g/dl (6.4-8.2) L 05/19/17 06:58 Albumin 3.1 g/dl (3.4-5.0) L 05/19/17 06:58 CARDIAC ENZYMES Creatine Kinase 265 IU/L (39-308) 05/16/17 00:41 Troponin I 0.02 ng/ml (0.00-0.05) 05/16/17 07:14 Assessment: This is an 82 year old male with PMHx of CHF, a.fib, HTN, renal transplant 10 years ago, ex smoker, who presented to the ED with shortness of breath. Plan: 1) Shortness of breath - Acute diastolic heart failure vs. acute COPD exacerbation Diastolic HF - Lasix per renal, given 40mg IVP yesterday - Resume Torsemide 40mg po daily today - Strict I&O - Daily weights - ECHO with normal EF COPD - CT chest: mild to moderate COPD - Duonebs qid - Albuterol nebs q4h prn - Appreciate pulmonary consult 2) Large right lower lobe mass - As evidence on chest CT - For CT guided lung biopsy on Sunday - Appreciate pulmonary consult 3) Right middle lobe consolidation - Per pulmonary, does not appear to be infectious - Continue to monitor off abx 4) CKD s/p kidney transplant - Hold Prednisone given the patient is on Solu-medrol - Continue Cellcept - Continue Prograf - Avoid NSAIDS 5) Anemia - F/u iron studies - F/u stool for occult blood - May need to start epogen 6) A.fib - Continue Eliquis 7) F/E/N: - Hyperkalemia: f/u repeat level now - Diabetic/sodium controlled diet - Monitor electrolytes 8) Prophylaxis: - On Eliquis 9) Dispo: - Requires continued inpatient care CODE STATUS: FULL CODE Visit type - Emergency Visit Emergency Visit: Yes ED Registration Date: 05/16/17 Care time: The patient presented to the Emergency Department on the above date and was hospitalized for further evaluation of their emergent condition. - New Patient This patient is new to me today: Yes Date on this admission: 05/19/17 - Critical Care Critical Care patient: No - Discharge Referral Referred to [facility] No
[2017-05-19] MEDS ORDERED: TORSEMIDE 20 MG TABLET (FP) PO SCH (18:30)
[2017-05-19] MEDS ORDERED: PT OWN MED DRAWER 7, Y5N ONE ×2 (18:42→21:09)
[2017-05-19 19:31] LABS: ANION GAP 11 (8-16); BLOOD UREA NITROGEN 94 mg/dL (7-18); CALCIUM 7.4 mg/dL (8.5-10.1); CHLORIDE 110 mmol/L (98-107); CO2 17 mmol/L (21-32); CREATININE 5.4 mg/dL (0.7-1.3); GLUCOSE,RANDOM 141 mg/dL (74-106); POTASSIUM 5.3 mmol/L (3.5-5.1); SODIUM 138 mmol/L (136-145)
[2017-05-19 20:19] LABS: URINE APPEARANCE SLCLOUDY; URINE BILIRUBIN NEGATIVE (<2.0 mg/dL); URINE COLOR YELLOW; URINE GLUCOSE (UA) NEGATIVE (NEGATIVE); URINE KETONE NEGATIVE (NEGATIVE); URINE NITRITE NEGATIVE (NEGATIVE); URINE UROBILINOGEN NEGATIVE mg/dL (0.2-1.0)
[2017-05-19 20:20] LABS: URINE LEUK ESTERASE 2+ (NEGATIVE); URINE PROTEIN 2+ (NEGATIVE)
[2017-05-19 20:21] LABS: EPI CELLS RARE /HPF (FEW); URINE BACTERIA MANY /hpf (NONE SEEN); URINE MUCUS RARE
[2017-05-19] MEDS ORDERED: INSULIN (NOVOLOG) ASPART 100 UNITS/ML 10ML VIAL ONE (21:08)
[2017-05-19] MEDS: ATORVASTATIN CA 20 MG TABLET (FP) PO SCH (21:41)
[2017-05-19] MEDS: INSULIN (LEVEMIR) 100 UNITS/ML UNITS SQ SCH (21:47)
--- NOTE | 2017-05-19 23:12 | PN ---
Progress Note (short form) - Note Progress Note: 1. CKD 2. kidney transplant 3. dyspnea 4. a-fib 5. fluid overload 6. BPH 7. DM 8. hypomagnesemia 9. anemia Active Medications Albuterol Sulfate (Ventolin 0.083% Nebulizer Soln -) 1 amp NEB Q4H PRN PRN Reason: SHORT OF BREATH/WHEEZING Last Admin: 05/17/17 03:05 Dose: 1 amp Albuterol/Ipratropium (Duoneb -) 1 amp NEB RQID [facility] Last Admin: 05/19/17 20:32 Dose: 1 amp Apixaban (Eliquis -) 2.5 mg PO BID [facility] Last Admin: 05/19/17 21:41 Dose: 2.5 mg Atorvastatin Calcium (Lipitor -) 20 mg PO HS [facility] Last Admin: 05/19/17 21:41 Dose: 20 mg Guaifenesin (Diabetic Tussin Dm -) 5 ml PO Q6H PRN PRN Reason: COUGH Last Admin: 05/19/17 21:54 Dose: 5 ml Insulin Aspart (Novolog Vial Sliding Scale -) 1 vial SQ ACHS [facility] PRN Reason: Protocol Last Admin: 05/19/17 21:50 Dose: 2 unit Insulin Detemir (Levemir Vial) 20 units SQ HS [facility] Last Admin: 05/19/17 21:47 Dose: 20 units Labetalol HCl (Normodyne -) 300 mg PO BID [facility] Last Admin: 05/19/17 21:41 Dose: 300 mg Methylprednisolone Sodium Succinate (Solu-Medrol -) 40 mg IVPUSH Q6H-IV [facility] Last Admin: 05/19/17 21:41 Dose: 40 mg Mycophenolate Mofetil (Cellcept -) 250 mg PO DAILY [facility] Last Admin: 05/19/17 09:59 Dose: 250 mg Nifedipine (Procardia Xl -) 30 mg PO DAILY [facility] Last Admin: 05/19/17 09:59 Dose: 30 mg Pantoprazole Sodium (Protonix -) 40 mg PO DAILY [facility] Last Admin: 05/19/17 09:58 Dose: 40 mg Sodium Bicarbonate (Sodium Bicarbonate -) 325 mg PO TID [facility] Last Admin: 05/19/17 21:42 Dose: 325 mg Tacrolimus (Prograf) 1 mg PO BID [facility] Last Admin: 05/19/17 21:42 Dose: 1 mg Torsemide (Demadex -) 40 mg PO DAILY [facility] Last Admin: 05/19/17 18:38 Dose: 40 mg Last Vital Signs Temp Pulse Resp BP Pulse Ox 97.6 F 93 H 20 131/66 96 05/19/17 17:00 05/19/17 17:00 05/19/17 17:00 05/19/17 17:00 05/19/17 08:00 CBC, BMP 05/19/17 06:58 05/19/17 18:00 Plan - renal function stabilizing - lasix today - resume torsemide at 40 mg from tomorrow - avoid nsaids - check iron studies and stool for occult blood - may need to start epogen
[2017-05-20] MEDS: methylPREDNISolone NA SUCC 40 MG/1 ML VIAL IVPUSH SCH ×4 (03:10→22:18)
[2017-05-20] MEDS: INSULIN SLIDING SCALE (NOVOLOG) 1 VIAL SQ SCH ×4 (06:25→22:23)
[2017-05-20] MEDS ORDERED: INSULIN (NOVOLOG) ASPART 100 UNITS/ML 10ML VIAL ONE ×2 (06:56→22:04)
[2017-05-20] MEDS ORDERED: PT OWN MED DRAWER 7, Y5N ONE (06:57)
[2017-05-20 07:39] LABS: HEMATOCRIT 26.2 % (35.4-49); HEMOGLOBIN 8.2 GM/dL (11.7-16.9); MCH 25.1 pg (25.7-33.7); MCHC 31.1 g/dl (32.0-35.9); MEAN CELL VOLUME 80.5 fl (80-96); MEAN PLT VOLUME 7.8 fl (7.5-11.1); PLATELET COUNT 214 K/MM3 (134-434); RBC 3.26 M/mm3 (4.00-5.60); RDW 20.4 % (11.9-15.9); WHITE BLOOD COUNT 8.8 K/mm3 (4.0-10.0)
[2017-05-20 08:14] LABS: CHLORIDE 109 mmol/L (98-107); POTASSIUM 5.6 mmol/L (3.5-5.1); SODIUM 139 mmol/L (136-145)
[2017-05-20 08:21] LABS: ANION GAP 15 (8-16); BLOOD UREA NITROGEN 97 mg/dL (7-18); CALCIUM 7.7 mg/dL (8.5-10.1); CO2 15 mmol/L (21-32); CREATININE 5.7 mg/dL (0.7-1.3); GLUCOSE,RANDOM 186 mg/dL (74-106)
[2017-05-20] MEDS: ALBUTEROL SO4 2.5/IPRATROPIUM 0.5 INH SOL 3 ML VIAL.NEB. NEB SCH ×4 (08:21→20:47)
--- NOTE | 2017-05-20 08:25 | PN ---
Progress Note, Physician Chief Complaint: COVERAGE FOR BECK TELE: AF, controlled, occasional aberrant conduction No new complaints - Current Medication List Current Medications: Active Medications Albuterol Sulfate (Ventolin 0.083% Nebulizer Soln -) 1 amp NEB Q4H PRN PRN Reason: SHORT OF BREATH/WHEEZING Last Admin: 05/17/17 03:05 Dose: 1 amp Albuterol/Ipratropium (Duoneb -) 1 amp NEB RQID [facility] Last Admin: 05/20/17 08:21 Dose: 1 amp Apixaban (Eliquis -) 2.5 mg PO BID [facility] Last Admin: 05/19/17 21:41 Dose: 2.5 mg Atorvastatin Calcium (Lipitor -) 20 mg PO HS [facility] Last Admin: 05/19/17 21:41 Dose: 20 mg Guaifenesin (Diabetic Tussin Dm -) 5 ml PO Q6H PRN PRN Reason: COUGH Last Admin: 05/19/17 21:54 Dose: 5 ml Ceftriaxone Sodium 1 gm/ (Dextrose) 50 mls @ 200 mls/hr IVPB DAILY [facility] Insulin Aspart (Novolog Vial Sliding Scale -) 1 vial SQ ACHS [facility] PRN Reason: Protocol Last Admin: 05/20/17 06:25 Dose: 2 unit Insulin Detemir (Levemir Vial) 20 units SQ HS [facility] Last Admin: 05/19/17 21:47 Dose: 20 units Labetalol HCl (Normodyne -) 300 mg PO BID [facility] Last Admin: 05/19/17 21:41 Dose: 300 mg Methylprednisolone Sodium Succinate (Solu-Medrol -) 40 mg IVPUSH Q6H-IV [facility] Last Admin: 05/20/17 03:10 Dose: 40 mg Mycophenolate Mofetil (Cellcept -) 250 mg PO DAILY [facility] Last Admin: 05/19/17 09:59 Dose: 250 mg Nifedipine (Procardia Xl -) 30 mg PO DAILY [facility] Last Admin: 05/19/17 09:59 Dose: 30 mg Pantoprazole Sodium (Protonix -) 40 mg PO DAILY [facility] Last Admin: 05/19/17 09:58 Dose: 40 mg Sodium Bicarbonate (Sodium Bicarbonate -) 325 mg PO TID [facility] Last Admin: 05/19/17 21:42 Dose: 325 mg Tacrolimus (Prograf) 1 mg PO BID [facility] Last Admin: 05/19/17 21:42 Dose: 1 mg Torsemide (Demadex -) 40 mg PO DAILY [facility] Last Admin: 05/19/17 18:38 Dose: 40 mg - Objective Vital Signs: Vital Signs Temperature 97.0 F L 05/20/17 06:00 Pulse Rate 82 05/20/17 06:00 Respiratory Rate 20 05/20/17 06:00 Blood Pressure 139/69 05/20/17 06:00 O2 Sat by Pulse Oximetry (%) 97 05/19/17 21:00 Constitutional: Yes: No Distress, Calm Cardiovascular: Yes: Pulse Irregular Respiratory: Yes: CTA Bilaterally Gastrointestinal: Yes: Soft Edema: No Neurological: Yes: Alert, Oriented Labs: CBC, BMP 05/20/17 07:12 INR, PTT INR 1.24 (0.82-1.09) H 05/16/17 00:41 - ....Imaging EKG: Image Reviewed Assessment/Plan Assessment/Plan Shortness of breath CT with lung mass CHF exacerbation vs. COPD Monitor I&Os Daily weights Lasix as per renal Further work up mass per pulmonary Atrial fibrillation: On Eliquis Rate controlled HTN, chronic: On Labetalol Pulm: COPD, new diagnosis COPD seen on CT Started on stds as per pulm Triny Large RLL mass suspicious for malignancy. For CT guided biopsy on Sunday. Patient agreeing for further workup of potential malignancy WOULD HOLD ELIQUIS Renal Acute vs. chronic renal failure with Kidney transplant> 10yrs ago Renal transplant rejection? On Prograf and Cellcept Creat elevated, unsure of baseline Renal following Tacrolimus levels low normal Bladder/renal us Prophy: DVT: on Eliquis
--- NOTE | 2017-05-20 08:59 | PN ---
Progress Note (short form) - Note Progress Note: Subjective: The patient was seen and examined at the bedside, he has no complaints at this time. Current Medications Generic Name Dose Route Start Last Admin Trade Name Freq PRN Reason Stop Dose Admin Albuterol Sulfate 1 amp 05/17/17 02:46 05/17/17 03:05 Ventolin 0.083% Nebulizer Soln - NEB 1 amp Q4H PRN Administration SHORT OF BREATH/WHEEZING Albuterol/Ipratropium 1 amp 05/17/17 09:45 05/20/17 08:21 Duoneb - NEB 1 amp RQID [facility] Administration Apixaban 2.5 mg 05/16/17 10:00 05/19/17 21:41 Eliquis - PO 2.5 mg BID [facility] Administration Atorvastatin Calcium 20 mg 05/16/17 03:30 05/19/17 21:41 Lipitor - PO 20 mg HS [facility] Administration Guaifenesin 5 ml 05/18/17 18:05 05/19/17 21:54 Diabetic Tussin Dm - PO 5 ml Q6H PRN Administration COUGH Ceftriaxone Sodium 1 gm/ 50 mls @ 200 mls/hr 05/20/17 10:00 Dextrose IVPB DAILY [facility] Insulin Aspart 1 vial 05/16/17 07:00 05/20/17 06:25 Novolog Vial Sliding Scale - SQ 2 unit ACHS [facility] Administration Protocol Insulin Detemir 20 units 05/16/17 22:00 05/19/17 21:47 Levemir Vial SQ 20 units HS [facility] Administration Labetalol HCl 300 mg 05/16/17 10:00 05/19/17 21:41 Normodyne - PO 300 mg BID [facility] Administration Methylprednisolone Sodium Succinate 40 mg 05/18/17 11:45 05/20/17 03:10 Solu-Medrol - IVPUSH 40 mg Q6H-IV [facility] Administration Mycophenolate Mofetil 250 mg 05/16/17 10:00 05/19/17 09:59 Cellcept - PO 250 mg DAILY [facility] Administration Nifedipine 30 mg 05/16/17 10:00 05/19/17 09:59 Procardia Xl - PO 30 mg DAILY [facility] Administration Pantoprazole Sodium 40 mg 05/19/17 10:00 05/19/17 09:58 Protonix - PO 40 mg DAILY [facility] Administration Sodium Bicarbonate 325 mg 05/16/17 06:00 05/19/17 21:42 Sodium Bicarbonate - PO 325 mg TID [facility] Administration Tacrolimus 1 mg 05/16/17 22:00 05/19/17 21:42 Prograf PO 1 mg BID [facility] Administration Objective: Vital Signs Period Temp Pulse Resp BP Sys/Wyatt Pulse Ox Last 24 Hr 97.0 F-98 F 80-93 18-20 112-148/65-75 97 Physical Exam: General: NAD, A&Ox3 Lungs: CTA bilaterally Heart: irregular Abd: Soft, non-tender. Normoactive bowel sounds Ext: 1+ b/l lower extremity pitting edema CBCD WBC 8.8 K/mm3 (4.0-10.0) D 05/20/17 07:12 RBC 3.26 M/mm3 (4.00-5.60) L 05/20/17 07:12 Hgb 8.2 GM/dL (11.7-16.9) L 05/20/17 07:12 Hct 26.2 % (35.4-49) L 05/20/17 07:12 MCV 80.5 fl (80-96) 05/20/17 07:12 MCHC 31.1 g/dl (32.0-35.9) L 05/20/17 07:12 RDW 20.4 % (11.9-15.9) H 05/20/17 07:12 Plt Count 214 K/MM3 (134-434) 05/20/17 07:12 MPV 7.8 fl (7.5-11.1) 05/20/17 07:12 CMP Sodium 139 mmol/L (136-145) 05/20/17 07:12 Potassium 5.6 mmol/L (3.5-5.1) H 05/20/17 07:12 Chloride 109 mmol/L (98-107) H 05/20/17 07:12 Carbon Dioxide 15 mmol/L (21-32) L 05/20/17 07:12 Anion Gap 15 (8-16) 05/20/17 07:12 BUN 97 mg/dL (7-18) H 05/20/17 07:12 Creatinine 5.7 mg/dL (0.7-1.3) H 05/20/17 07:12 Creat Clearance w eGFR 10.97 (>60) 05/19/17 06:58 Random Glucose 186 mg/dL (74-106) H D 05/20/17 07:12 Calcium 7.7 mg/dL (8.5-10.1) L 05/20/17 07:12 Total Bilirubin 0.5 mg/dL (0.2-1.0) D 05/19/17 06:58 AST 19 U/L (15-37) D 05/19/17 06:58 ALT 32 U/L (12-78) 05/19/17 06:58 Alkaline Phosphatase 114 U/L (45-117) 05/19/17 06:58 Total Protein 6.1 g/dl (6.4-8.2) L 05/19/17 06:58 Albumin 3.1 g/dl (3.4-5.0) L 05/19/17 06:58 CARDIAC ENZYMES Creatine Kinase 265 IU/L (39-308) 05/16/17 00:41 Troponin I 0.02 ng/ml (0.00-0.05) 05/16/17 07:14 Assessment: This is an 82 year old male with PMHx of CHF, a.fib, HTN, renal transplant 10 years ago, ex smoker, who presented to the ED with shortness of breath. Plan: 1) Shortness of breath - Acute diastolic heart failure vs. acute COPD exacerbation Diastolic HF - Received one dose of Torsemide yesterday, now with slightly worsening kidney function. Holding diuretics (discussed with Dr. De La Cruz and Dr. Vinson ) - Strict I&O - Daily weights - ECHO with normal EF COPD - CT chest: mild to moderate COPD - Duonebs qid - Albuterol nebs q4h prn - Appreciate pulmonary consult 2) Large right lower lobe mass - As evidence on chest CT - For CT guided lung biopsy on Sunday - Holding Eliquis today - Appreciate pulmonary consult 3) Right middle lobe consolidation - Per pulmonary, does not appear to be infectious - Continue to monitor off abx 4) CKD s/p kidney transplant - Hold Prednisone given the patient is on Solu-medrol - Continue Cellcept - Continue Prograf - Avoid NSAIDS 5) UTI - F/u urine culture - Start Ceftriaxone 6) Anemia - F/u iron studies - F/u stool for occult blood - May need to start epogen 7) A.fib - Hold Eliquis for procedure tomorrow 8) F/E/N: - Hyperkalemia: Discussed with Dr. Vinson who recommends giving Kayexelate only - Diabetic/sodium controlled diet - Monitor electrolytes 9) Prophylaxis: - Hold Eliquis for procedure tomorrow 10) Dispo: - Requires continued inpatient care CODE STATUS: FULL CODE Visit type - Emergency Visit Emergency Visit: Yes ED Registration Date: 05/16/17 Care time: The patient presented to the Emergency Department on the above date and was hospitalized for further evaluation of their emergent condition. - New Patient This patient is new to me today: No - Critical Care Critical Care patient: No
[2017-05-20] MEDS ORDERED: SODIUM POLYSTYRENE SULFONATE 15 GM/60 ML BOTTLE PO ONE (09:12)
[2017-05-20 09:32] LABS: SERUM IRON SATURATION 13 % (15-55); TOTAL IRON BINDING CAPACITY 196 ug/dL (250-450); UIBC 170 ug/dL (111-343)
[2017-05-20] MEDS: LABETALOL HCL 100 MG TABLET (FP) PO SCH ×2 (09:52→22:19)
[2017-05-20] MEDS: PANTOPRAZOLE 40 MG TABLET (FP) PO SCH (09:53)
[2017-05-20] MEDS: NIFEdipine E.R. 30 MG TABLET (FP) PO SCH (09:53)
[2017-05-20] MEDS: TACROLIMUS ANHYDROUS 1 MG CAPSULE PO SCH ×2 (09:53→22:19)
[2017-05-20] MEDS: MYCOPHENOLATE MOFETIL 250 MG CAPSULE PO SCH (09:54)
[2017-05-20] MEDS ORDERED: DEXTROSE 5%-WATER - 50 ML IVPB ONE (09:59)
[2017-05-20] MEDS ORDERED: cefTRIAXone SODIUM 1 GM VIAL ONE (09:59)
[2017-05-20] MEDS: CEFTRIAXONE 1 GM in DEXTROSE 5%-WATER - 50 ML IVPB SCH (10:07)
--- NOTE | 2017-05-20 13:36 | PN ---
Progress Note (short form) - Note Progress Note: No CP or SOB. Some residual cough. No acute events overnight. Intake & Output 05/17/17 05/18/17 05/19/17 05/20/17 23:59 23:59 23:59 23:59 Intake Total 710 540 850 240 Output Total 1275 1225 750 500 Balance -565 -685 100 -260 Weight 170 lb 2 oz 173 lb 6.4 oz 174 lb 6 oz 178 lb Last Vital Signs Temp Pulse Resp BP Pulse Ox 98 F 94 H 20 150/78 97 05/20/17 10:00 05/20/17 10:00 05/20/17 10:00 05/20/17 10:00 05/20/17 09:00 Active Medications Albuterol Sulfate (Ventolin 0.083% Nebulizer Soln -) 1 amp NEB Q4H PRN PRN Reason: SHORT OF BREATH/WHEEZING Last Admin: 05/17/17 03:05 Dose: 1 amp Albuterol/Ipratropium (Duoneb -) 1 amp NEB RQID [facility] Last Admin: 05/20/17 11:24 Dose: 1 amp Apixaban (Eliquis -) 2.5 mg PO BID [facility] Last Admin: 05/19/17 21:41 Dose: 2.5 mg Atorvastatin Calcium (Lipitor -) 20 mg PO HS [facility] Last Admin: 05/19/17 21:41 Dose: 20 mg Guaifenesin (Diabetic Tussin Dm -) 5 ml PO Q6H PRN PRN Reason: COUGH Last Admin: 05/19/17 21:54 Dose: 5 ml Ceftriaxone Sodium 1 gm/ (Dextrose) 50 mls @ 200 mls/hr IVPB DAILY [facility] Last Admin: 05/20/17 10:07 Dose: 200 mls/hr Insulin Aspart (Novolog Vial Sliding Scale -) 1 vial SQ ACHS [facility] PRN Reason: Protocol Last Admin: 05/20/17 12:01 Dose: 4 unit Insulin Detemir (Levemir Vial) 20 units SQ HS [facility] Last Admin: 05/19/17 21:47 Dose: 20 units Labetalol HCl (Normodyne -) 300 mg PO BID [facility] Last Admin: 05/20/17 09:52 Dose: 300 mg Methylprednisolone Sodium Succinate (Solu-Medrol -) 40 mg IVPUSH Q6H-IV [facility] Last Admin: 05/20/17 09:52 Dose: 40 mg Mycophenolate Mofetil (Cellcept -) 250 mg PO DAILY [facility] Last Admin: 05/20/17 09:54 Dose: 250 mg Nifedipine (Procardia Xl -) 30 mg PO DAILY [facility] Last Admin: 05/20/17 09:53 Dose: 30 mg Pantoprazole Sodium (Protonix -) 40 mg PO DAILY [facility] Last Admin: 05/20/17 09:53 Dose: 40 mg Sodium Bicarbonate (Sodium Bicarbonate -) 325 mg PO TID [facility] Last Admin: 05/19/17 21:42 Dose: 325 mg Tacrolimus (Prograf) 1 mg PO BID [facility] Last Admin: 05/20/17 09:53 Dose: 1 mg Constitutional: Yes: No Distress Eyes: Yes: Conjunctiva Clear, EOM Intact HENT: Yes: Atraumatic, Normocephalic Neck: Yes: Supple, Trachea Midline Cardiovascular: Yes: Pulse Irregular Respiratory: Yes: Diminished, Rhonchi. No: Accessory Muscle Use, Rales, Stridor , Tachypnea, Wheezes ...Inspection: Yes: WNL ...Clubbing: No Gastrointestinal: Yes: Normal Bowel Sounds, Soft Breast(s): Yes: WNL Musculoskeletal: Yes: WNL Extremities: Yes: WNL Edema: Yes Peripheral Pulses WNL: Yes Integumentary: Yes: WNL Neurological: Yes: WNL, Alert, Oriented ...Motor Strength: WNL Psychiatric: Yes: WNL, Alert, Oriented Labs: Laboratory Results - last 24 hr 05/19/17 05/19/17 05/19/17 06:58 16:30 18:00 WBC RBC Hgb Hct MCV MCH MCHC RDW Plt Count MPV Sodium 138 Potassium 5.3 H Chloride 110 H Carbon Dioxide 17 L Anion Gap 11 BUN 94 H Creatinine 5.4 H POC Glucometer 255 Random Glucose 141 H Calcium 7.4 L Iron 26 L TIBC 196 L Iron Saturation 13 L Urine Color Urine Appearance Urine pH Ur Specific [place] Urine Protein Urine Glucose (UA) Urine Ketones Urine Blood Urine Nitrite Urine Bilirubin Urine Urobilinogen Ur Leukocyte Esterase Urine WBC (Auto) Urine RBC (Auto) Ur Epithelial Cells Urine Bacteria Urine Mucus 05/19/17 05/19/17 05/20/17 18:00 21:46 06:24 WBC RBC Hgb Hct MCV MCH MCHC RDW Plt Count MPV Sodium Potassium Chloride Carbon Dioxide Anion Gap BUN Creatinine POC Glucometer 189 194 Random Glucose Calcium Iron TIBC Iron Saturation Urine Color Yellow Urine Appearance Slcloudy Urine pH 5.0 Ur Specific [place] 1.012 Urine Protein 2+ H Urine Glucose (UA) Negative Urine Ketones Negative Urine Blood 2+ H Urine Nitrite Negative Urine Bilirubin Negative Urine Urobilinogen Negative Ur Leukocyte Esterase 2+ H Urine WBC (Auto) 34 Urine RBC (Auto) 8 Ur Epithelial Cells Rare Urine Bacteria Many Urine Mucus Rare 05/20/17 05/20/17 05/20/17 07:12 07:12 11:56 WBC 8.8 D RBC 3.26 L Hgb 8.2 L Hct 26.2 L MCV 80.5 MCH 25.1 L MCHC 31.1 L RDW 20.4 H Plt Count 214 MPV 7.8 Sodium 139 Potassium 5.6 H Chloride 109 H Carbon Dioxide 15 L Anion Gap 15 BUN 97 H Creatinine 5.7 H POC Glucometer 202 Random Glucose 186 H D Calcium 7.7 L Iron TIBC Iron Saturation Urine Color Urine Appearance Urine pH Ur Specific [place] Urine Protein Urine Glucose (UA) Urine Ketones Urine Blood Urine Nitrite Urine Bilirubin Urine Urobilinogen Ur Leukocyte Esterase Urine WBC (Auto) Urine RBC (Auto) Ur Epithelial Cells Urine Bacteria Urine Mucus Problem List - Problems (1) Pleural effusion Code(s): J90 - PLEURAL EFFUSION, NOT ELSEWHERE CLASSIFIED (2) Atelectasis of left lung Code(s): J98.11 - ATELECTASIS (3) Acute on chronic diastolic CHF (congestive heart failure) Code(s): I50.33 - ACUTE ON CHRONIC DIASTOLIC (CONGESTIVE) HEART FAILURE (4) Afib Code(s): I48.91 - UNSPECIFIED ATRIAL FIBRILLATION Qualifiers: Atrial fibrillation type: chronic Qualified Code(s): I48.2 - Chronic atrial fibrillation (5) Diabetes Code(s): E11.9 - TYPE 2 DIABETES MELLITUS WITHOUT COMPLICATIONS Qualifiers: Diabetes mellitus type: type 2 Diabetes mellitus fdc insulin use: with oil heaterman use Diabetes mellitus complication status: with kidney complications Diabetes mellitus complication detail: with other kidney complication Qualified Code(s): E11.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; Z79.4 - exterminator (current) use of insulin; Z79.4 - detention (current) use of insulin; Z79.4 - detention (current) use of insulin ; Z79.4 - detention (current) use of insulin (6) S/P kidney transplant Code(s): Z94.0 - KIDNEY TRANSPLANT STATUS (7) Shortness of breath Code(s): R06.02 - SHORTNESS OF BREATH Assessment/Plan Do not suspect PE given that the patient is compliant with Eliquis, he does not have sustained tachycardia, and his LE are (-) for DVT RLL 3.2 x 2.7 x 2.3 mass BD TX PRN O2 as needed No smoking IV Medrol Eliquis is being held for CT guided biopsy tomorrow Dr Rubalcava Problem List - Problems (1) Pleural effusion Code(s): J90 - PLEURAL EFFUSION, NOT ELSEWHERE CLASSIFIED (2) Atelectasis of left lung Code(s): J98.11 - ATELECTASIS (3) Acute on chronic diastolic CHF (congestive heart failure) Code(s): I50.33 - ACUTE ON CHRONIC DIASTOLIC (CONGESTIVE) HEART FAILURE (4) Afib Code(s): I48.91 - UNSPECIFIED ATRIAL FIBRILLATION Qualifiers: Atrial fibrillation type: chronic Qualified Code(s): I48.2 - Chronic atrial fibrillation (5) Diabetes Code(s): E11.9 - TYPE 2 DIABETES MELLITUS WITHOUT COMPLICATIONS Qualifiers: Diabetes mellitus type: type 2 Diabetes mellitus fdc insulin use: with fdc use Diabetes mellitus complication status: with kidney complications Diabetes mellitus complication detail: with other kidney complication Qualified Code(s): E11.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; Z79.4 - detention (current) use of insulin; Z79.4 - exterminator (current) use of insulin; Z79.4 - exterminator (current) use of insulin ; Z79.4 - exterminator (current) use of insulin (6) S/P kidney transplant Code(s): Z94.0 - KIDNEY TRANSPLANT STATUS (7) Shortness of breath Code(s): R06.02 - SHORTNESS OF BREATH
[2017-05-20] MEDS: SODIUM BICARBONATE 325 MG TABLET PO SCH ×3 (14:41→22:18)
[2017-05-20 17:55] LABS: ANION GAP 12 (8-16); CHLORIDE 109 mmol/L (98-107); CO2 18 mmol/L (21-32); CREATININE 5.7 mg/dL (0.7-1.3); SODIUM 139 mmol/L (136-145)
[2017-05-20 18:06] LABS: BLOOD UREA NITROGEN 108 mg/dL (7-18); GLUCOSE,RANDOM 321 mg/dL (74-106)
--- NOTE | 2017-05-20 18:42 | PN ---
Progress Note (short form) - Note Progress Note: 1. CKD 2. kidney transplant 3. dyspnea 4. a-fib 5. fluid overload 6. BPH 7. DM 8. hypomagnesemia 9. anemia he's mostly bothered by cough no specific sob or orthopea Current Medications Albuterol Sulfate (Ventolin 0.083% Nebulizer Soln -) 1 amp NEB Q4H PRN PRN Reason: SHORT OF BREATH/WHEEZING Last Admin: 05/17/17 03:05 Dose: 1 amp Albuterol/Ipratropium (Duoneb -) 1 amp NEB RQID [facility] Last Admin: 05/20/17 16:30 Dose: 1 amp Apixaban (Eliquis -) 2.5 mg PO BID [facility] Last Admin: 05/19/17 21:41 Dose: 2.5 mg Atorvastatin Calcium (Lipitor -) 20 mg PO HS [facility] Last Admin: 05/19/17 21:41 Dose: 20 mg Guaifenesin (Diabetic Tussin Dm -) 5 ml PO Q6H PRN PRN Reason: COUGH Last Admin: 05/19/17 21:54 Dose: 5 ml Ceftriaxone Sodium 1 gm/ (Dextrose) 50 mls @ 200 mls/hr IVPB DAILY [facility] Last Admin: 05/20/17 10:07 Dose: 200 mls/hr Insulin Aspart (Novolog Vial Sliding Scale -) 1 vial SQ ACHS [facility] PRN Reason: Protocol Last Admin: 05/20/17 16:35 Dose: 8 unit Insulin Detemir (Levemir Vial) 20 units SQ HS [facility] Last Admin: 05/19/17 21:47 Dose: 20 units Labetalol HCl (Normodyne -) 300 mg PO BID [facility] Last Admin: 05/20/17 09:52 Dose: 300 mg Methylprednisolone Sodium Succinate (Solu-Medrol -) 40 mg IVPUSH Q6H-IV [facility] Last Admin: 05/20/17 14:40 Dose: 40 mg Mycophenolate Mofetil (Cellcept -) 250 mg PO DAILY [facility] Last Admin: 05/20/17 09:54 Dose: 250 mg Nifedipine (Procardia Xl -) 30 mg PO DAILY [facility] Last Admin: 05/20/17 09:53 Dose: 30 mg Pantoprazole Sodium (Protonix -) 40 mg PO DAILY [facility] Last Admin: 05/20/17 09:53 Dose: 40 mg Sodium Bicarbonate (Sodium Bicarbonate -) 325 mg PO TID [facility] Last Admin: 05/20/17 14:41 Dose: 325 mg Tacrolimus (Prograf) 1 mg PO BID [facility] Last Admin: 05/20/17 09:53 Dose: 1 mg Last Vital Signs Temp Pulse Resp BP Pulse Ox 97.8 F 92 H 20 142/76 97 05/20/17 14:00 05/20/17 14:00 05/20/17 14:00 05/20/17 14:00 05/20/17 09:00 lungs clear heart reg abd soft notender Ext no edema CBC, BMP 05/20/17 07:12 05/20/17 16:30 CBC, BMP 05/19/17 06:58 05/19/17 18:00 IMP- ckd kidney transplant failure hyperkalemia copd/asthma Plan patient says he would prefer to start dialysis at [facility] if he needs HD - on oral torsemide at 40 mg - avoid nsaids - check iron studies and stool for occult blood - may need to start epogen
[2017-05-20] MEDS: ATORVASTATIN CA 20 MG TABLET (FP) PO SCH (22:18)
[2017-05-20] MEDS: guaiFENesin/D-M SUGAR-FREE/ACLHOL-FREE 118 ML BOTTLE PO PRN (22:20)
[2017-05-20] MEDS: INSULIN (LEVEMIR) 100 UNITS/ML UNITS SQ SCH (22:23)
[2017-05-21] MEDS: methylPREDNISolone NA SUCC 40 MG/1 ML VIAL IVPUSH SCH ×4 (03:00→21:12)
[2017-05-21] MEDS: INSULIN SLIDING SCALE (NOVOLOG) 1 VIAL SQ SCH ×4 (06:23→21:31)
[2017-05-21] MEDS: SODIUM BICARBONATE 325 MG TABLET PO SCH (06:23)
[2017-05-21 07:14] LABS: CHLORIDE 110 mmol/L (98-107); POTASSIUM 5.4 mmol/L (3.5-5.1); SODIUM 141 mmol/L (136-145)
[2017-05-21 07:28] LABS: ALBUMIN 3.2 g/dl (3.4-5.0); ALK PHOS 96 U/L (45-117); ANION GAP 15 (8-16); BILIRUBIN,TOTAL 0.6 mg/dL (0.2-1.0); CALCIUM 7.5 mg/dL (8.5-10.1); CO2 16 mmol/L (21-32); GLUCOSE,RANDOM 155 mg/dL (74-106); SGOT/AST 23 U/L (15-37); SGPT/ALT 38 U/L (12-78)
[2017-05-21 07:33] LABS: BLOOD UREA NITROGEN 108 mg/dL (7-18)
[2017-05-21 07:54] LABS: BASO % 0.2 % (0-2.0); HEMATOCRIT 26.2 % (35.4-49); HEMOGLOBIN 8.1 GM/dL (11.7-16.9); LYMPH % 3.1 % (8-40); MCH 24.9 pg (25.7-33.7); MCHC 30.9 g/dl (32.0-35.9); MEAN CELL VOLUME 80.7 fl (80-96); MONO % 1.9 % (3.8-10.2); NEUT % 94.8 % (42.8-82.8); PLATELET COUNT 217 K/MM3 (134-434); RBC 3.25 M/mm3 (4.00-5.60); RDW 20.5 % (11.9-15.9); WHITE BLOOD COUNT 8.8 K/mm3 (4.0-10.0)
[2017-05-21] MEDS: ALBUTEROL SO4 2.5/IPRATROPIUM 0.5 INH SOL 3 ML VIAL.NEB. NEB SCH ×4 (08:21→19:38)
[2017-05-21] MEDS ORDERED: SODIUM POLYSTYRENE SULFONATE 15 GM/60 ML BOTTLE PO ONE (08:45)
[2017-05-21] MEDS ORDERED: cefTRIAXone SODIUM 1 GM VIAL ONE (08:54)
[2017-05-21] MEDS ORDERED: DEXTROSE 5%-WATER - 50 ML IVPB ONE (08:55)
[2017-05-21] MEDS: LABETALOL HCL 100 MG TABLET (FP) PO SCH ×2 (09:32→21:10)
[2017-05-21] MEDS: NIFEdipine E.R. 30 MG TABLET (FP) PO SCH (09:32)
[2017-05-21] MEDS: PANTOPRAZOLE 40 MG TABLET (FP) PO SCH (09:32)
[2017-05-21] MEDS: MYCOPHENOLATE MOFETIL 250 MG CAPSULE PO SCH (09:33)
[2017-05-21] MEDS: CEFTRIAXONE 1 GM in DEXTROSE 5%-WATER - 50 ML IVPB SCH (09:33)
[2017-05-21] MEDS: TACROLIMUS ANHYDROUS 1 MG CAPSULE PO SCH ×2 (09:33→21:11)
[2017-05-21] MEDS ORDERED: TORSEMIDE 20 MG TABLET (FP) PO SCH (10:00)
--- NOTE | 2017-05-21 10:01 | PN ---
Progress Note (short form) - Note Progress Note: Subjective: The patient was seen and examined at the bedside, he has no complaints at this time. Worsening kidney function today. Spoke to Dr. Vinson this morning. Given rise in creatinine, he has recommended hold Torsemide again today. Also recommending Kayexelate for K of 5.4 Current Medications Generic Name Dose Route Start Last Admin Trade Name Freq PRN Reason Stop Dose Admin Albuterol Sulfate 1 amp 05/17/17 02:46 05/17/17 03:05 Ventolin 0.083% Nebulizer Soln - NEB 1 amp Q4H PRN Administration SHORT OF BREATH/WHEEZING Albuterol/Ipratropium 1 amp 05/17/17 09:45 05/21/17 08:21 Duoneb - NEB 1 amp RQID ANIKA Administration Apixaban 2.5 mg 05/16/17 10:00 05/19/17 21:41 Eliquis - PO 2.5 mg BID ANIKA Administration Atorvastatin Calcium 20 mg 05/16/17 03:30 05/20/17 22:18 Lipitor - PO 20 mg HS ANIKA Administration Guaifenesin 5 ml 05/18/17 18:05 05/20/17 22:20 Diabetic Tussin Dm - PO 5 ml Q6H PRN Administration COUGH Ceftriaxone Sodium 1 gm/ 50 mls @ 200 mls/hr 05/20/17 10:00 05/21/17 09:33 Dextrose IVPB 200 mls/hr DAILY ANIKA Administration Insulin Aspart 1 vial 05/16/17 07:00 05/21/17 06:23 Novolog Vial Sliding Scale - SQ 2 unit ACHS ANIKA Administration Protocol Insulin Detemir 20 units 05/16/17 22:00 05/20/17 22:23 Levemir Vial SQ 20 units HS ANIKA Administration Labetalol HCl 300 mg 05/16/17 10:00 05/21/17 09:32 Normodyne - PO 300 mg BID ANIKA Administration Methylprednisolone Sodium Succinate 40 mg 05/18/17 11:45 05/21/17 09:32 Solu-Medrol - IVPUSH 40 mg Q6H-IV ANIKA Administration Mycophenolate Mofetil 250 mg 05/16/17 10:00 05/21/17 09:33 Cellcept - PO 250 mg DAILY ANIKA Administration Nifedipine 30 mg 05/16/17 10:00 05/21/17 09:32 Procardia Xl - PO 30 mg DAILY ANIKA Administration Pantoprazole Sodium 40 mg 05/19/17 10:00 05/21/17 09:32 Protonix - PO 40 mg DAILY ANIKA Administration Sodium Bicarbonate 325 mg 05/16/17 06:00 05/21/17 06:23 Sodium Bicarbonate - PO 325 mg TID ANIKA Administration Tacrolimus 1 mg 05/16/17 22:00 05/21/17 09:33 Prograf PO 1 mg BID ANIKA Administration Objective: Vital Signs Period Temp Pulse Resp BP Sys/Wyatt Pulse Ox Last 24 Hr 97.0 F-98 F 92-96 20-20 121-150/68-86 100 Physical Exam: General: NAD, A&Ox3 Lungs: CTA bilaterally Heart: irregular Abd: Soft, non-tender. Normoactive bowel sounds Ext: 2+ b/l lower extremity pitting edema CBCD WBC 8.8 K/mm3 (4.0-10.0) 05/21/17 06:50 RBC 3.25 M/mm3 (4.00-5.60) L 05/21/17 06:50 Hgb 8.1 GM/dL (11.7-16.9) L 05/21/17 06:50 Hct 26.2 % (35.4-49) L 05/21/17 06:50 MCV 80.7 fl (80-96) 05/21/17 06:50 MCHC 30.9 g/dl (32.0-35.9) L 05/21/17 06:50 RDW 20.5 % (11.9-15.9) H 05/21/17 06:50 Plt Count 217 K/MM3 (134-434) 05/21/17 06:50 MPV 8.0 fl (7.5-11.1) 05/21/17 06:50 CMP Sodium 141 mmol/L (136-145) 05/21/17 06:30 Potassium 5.4 mmol/L (3.5-5.1) H 05/21/17 06:30 Chloride 110 mmol/L (98-107) H 05/21/17 06:30 Carbon Dioxide 16 mmol/L (21-32) L 05/21/17 06:30 Anion Gap 15 (8-16) 05/21/17 06:30 BUN 108 mg/dL (7-18) H* 05/21/17 06:30 Creatinine 6.0 mg/dL (0.7-1.3) H 05/21/17 06:30 Creat Clearance w eGFR 9.09 (>60) 05/21/17 06:30 Random Glucose 155 mg/dL (74-106) H D 05/21/17 06:30 Calcium 7.5 mg/dL (8.5-10.1) L 05/21/17 06:30 Total Bilirubin 0.6 mg/dL (0.2-1.0) 05/21/17 06:30 AST 23 U/L (15-37) D 05/21/17 06:30 ALT 38 U/L (12-78) 05/21/17 06:30 Alkaline Phosphatase 96 U/L (45-117) 05/21/17 06:30 Total Protein 6.0 g/dl (6.4-8.2) L 05/21/17 06:30 Albumin 3.2 g/dl (3.4-5.0) L 05/21/17 06:30 CARDIAC ENZYMES Creatine Kinase 265 IU/L (39-308) 05/16/17 00:41 Troponin I 0.02 ng/ml (0.00-0.05) 05/16/17 07:14 Microbiology 05/20/17 08:00 Urine - Urine Clean Catch Urine Culture - Preliminary Lactose Fermenting Neg Bacilli Lactose Fermenting Neg Bacilli#2 Assessment: This is an 82 year old male with PMHx of CHF, a.fib, HTN, renal transplant 10 years ago, ex smoker, who presented to the ED with shortness of breath. Plan: 1) Shortness of breath - Acute diastolic heart failure vs. acute COPD exacerbation Diastolic HF - Continue to hold Torsemide 2/2 worsening kidney function per Dr. Vinson - Strict I&O - Daily weights - ECHO with normal EF COPD - CT chest: mild to moderate COPD - Duonebs qid - Albuterol nebs q4h prn - Appreciate pulmonary consult 2) Large right lower lobe mass - As evidence on chest CT - For CT guided lung biopsy today - Continue to hold Eliquis - Appreciate pulmonary consult 3) Right middle lobe consolidation - Per pulmonary, does not appear to be infectious - Continue to monitor off abx 4) CKD s/p kidney transplant - Hold Prednisone given the patient is on Solu-medrol - Continue Cellcept - Continue Prograf - Avoid NSAIDS 5) UTI - F/u urine culture - Continue Ceftriaxone 6) Anemia - Iron low, start ferrous sulfate - F/u stool for occult blood - May need to start epogen 7) A.fib - Hold Eliquis for procedure tomorrow 8) F/E/N: - Hyperkalemia: Discussed with Dr. Vinson who recommends giving Kayexelate only - Diabetic/sodium controlled diet - Monitor electrolytes 9) Prophylaxis: - Hold Eliquis for procedure today 10) Dispo: - Requires continued inpatient care CODE STATUS: FULL CODE Visit type - Emergency Visit Emergency Visit: Yes ED Registration Date: 05/16/17 Care time: The patient presented to the Emergency Department on the above date and was hospitalized for further evaluation of their emergent condition. - New Patient This patient is new to me today: No - Critical Care Critical Care patient: No
[2017-05-21] MEDS ORDERED: SODIUM BICARBONATE 325 MG TABLET PO ONE (10:05)
--- NOTE | 2017-05-21 11:13 | PN ---
Progress Note, Physician History of Present Illness: 82 M hx, of CHF, Renal tx 10 years ago, A- Fib On Eliquis, States he has had SOB X 20 days. Also with associated Bilateral LE edema. Denies any chest pain or pressure. States he flew into airport today. Notes he has been complient with his Eliquis. Denies any chest pain or pressure. 82 yo M with PMHx of AF on eliquis (compliant), renal transplant 2007, HLD, HTN , BPH, and IDDM who was transported to the ED from the airport complaining of MCCLURE and cough. The patient was returning from the [facility] [place] and had difficulty breathing at the airport at which point he was brought here by his son. The patient reports having a progressive non-productive cough and shortness of breath for 20 days. The patient reports associated symptom of swelling in the legs b/l.He endorses increased orthopnea requiring 2 pillows at night. Denies increase in salt intake. He receives all of his care at [facility]. He last saw his soaker helper prior to his trip [place]. 1 month ago and he states that at that time his Cr. was 5. The patient denies chest pain , headache, and dizziness. - Current Medication List Current Medications: Active Medications Albuterol Sulfate (Ventolin 0.083% Nebulizer Soln -) 1 amp NEB Q4H PRN PRN Reason: SHORT OF BREATH/WHEEZING Last Admin: 05/17/17 03:05 Dose: 1 amp Albuterol/Ipratropium (Duoneb -) 1 amp NEB RQID [facility] Last Admin: 05/21/17 08:21 Dose: 1 amp Apixaban (Eliquis -) 2.5 mg PO BID [facility] Last Admin: 05/19/17 21:41 Dose: 2.5 mg Atorvastatin Calcium (Lipitor -) 20 mg PO HS [facility] Last Admin: 05/20/17 22:18 Dose: 20 mg Ferrous Sulfate (Feosol -) 325 mg PO DAILY [facility] Guaifenesin (Diabetic Tussin Dm -) 5 ml PO Q6H PRN PRN Reason: COUGH Last Admin: 05/20/17 22:20 Dose: 5 ml Ceftriaxone Sodium 1 gm/ (Dextrose) 50 mls @ 200 mls/hr IVPB DAILY [facility] Last Admin: 05/21/17 09:33 Dose: 200 mls/hr Insulin Aspart (Novolog Vial Sliding Scale -) 1 vial SQ ACHS [facility] PRN Reason: Protocol Last Admin: 05/21/17 06:23 Dose: 2 unit Insulin Detemir (Levemir Vial) 20 units SQ HS [facility] Last Admin: 05/20/17 22:23 Dose: 20 units Labetalol HCl (Normodyne -) 300 mg PO BID [facility] Last Admin: 05/21/17 09:32 Dose: 300 mg Methylprednisolone Sodium Succinate (Solu-Medrol -) 40 mg IVPUSH Q6H-IV [facility] Last Admin: 05/21/17 09:32 Dose: 40 mg Mycophenolate Mofetil (Cellcept -) 250 mg PO DAILY [facility] Last Admin: 05/21/17 09:33 Dose: 250 mg Nifedipine (Procardia Xl -) 30 mg PO DAILY [facility] Last Admin: 05/21/17 09:32 Dose: 30 mg Pantoprazole Sodium (Protonix -) 40 mg PO DAILY [facility] Last Admin: 05/21/17 09:32 Dose: 40 mg Sodium Bicarbonate (Sodium Bicarbonate -) 650 mg PO TID [facility] Tacrolimus (Prograf) 1 mg PO BID [facility] Last Admin: 05/21/17 09:33 Dose: 1 mg - Objective Vital Signs: Vital Signs Temperature 97.5 F L 05/21/17 05:32 Pulse Rate 92 H 05/21/17 05:32 Respiratory Rate 20 05/21/17 05:32 Blood Pressure 136/86 05/21/17 05:32 O2 Sat by Pulse Oximetry (%) 100 05/20/17 21:00 Eyes: Yes: WNL, Conjunctiva Clear, EOM Intact HENT: Yes: WNL, Atraumatic, Normocephalic Neck: Yes: WNL, Supple, Trachea Midline Cardiovascular: Yes: WNL, Regular Rate and Rhythm Respiratory: Yes: WNL, Regular, CTA Bilaterally Gastrointestinal: Yes: WNL, Normal Bowel Sounds Genitourinary: Yes: WNL Musculoskeletal: Yes: WNL Extremities: Yes: WNL Edema: No Integumentary: Yes: WNL Neurological: Yes: WNL, Alert, Oriented ...Motor Strength: WNL Psychiatric: Yes: WNL Labs: CBC, BMP 05/21/17 06:50 05/21/17 06:30 INR, PTT INR 1.24 (0.82-1.09) H 05/16/17 00:41 Assessment/Plan Shortness of breath CT with lung mass CHF exacerbation vs. COPD Monitor I&Os Daily weights Lasix as per renal Further work up mass per pulmonary Atrial fibrillation: On Eliquis Rate controlled HTN, chronic: On Labetalol Pulm: COPD, new diagnosis COPD seen on CT Started on stds as per pulm Triny Large RLL mass suspicious for malignancy. For CT guided biopsy on Sunday. Patient agreeing for further workup of potential malignancy WOULD HOLD ELIQUIS Renal Acute vs. chronic renal failure with Kidney transplant> 10yrs ago Renal transplant rejection? On Prograf and Cellcept Creat elevated, unsure of baseline Renal following Tacrolimus levels low normal Bladder/renal us will d/c telemetry. Prophy: DVT: on Eliquis
--- NOTE | 2017-05-21 11:15 | PN ---
Progress Note, Physician History of Present Illness: PULMONARY ALERT,C/O COUGH,LESS DYSPNEIC,-OOB-CHAIR - Current Medication List Current Medications: Active Medications Albuterol Sulfate (Ventolin 0.083% Nebulizer Soln -) 1 amp NEB Q4H PRN PRN Reason: SHORT OF BREATH/WHEEZING Last Admin: 05/17/17 03:05 Dose: 1 amp Albuterol/Ipratropium (Duoneb -) 1 amp NEB RQID [facility] Last Admin: 05/21/17 08:21 Dose: 1 amp Apixaban (Eliquis -) 2.5 mg PO BID [facility] Last Admin: 05/19/17 21:41 Dose: 2.5 mg Atorvastatin Calcium (Lipitor -) 20 mg PO HS [facility] Last Admin: 05/20/17 22:18 Dose: 20 mg Ferrous Sulfate (Feosol -) 325 mg PO DAILY [facility] Guaifenesin (Diabetic Tussin Dm -) 5 ml PO Q6H PRN PRN Reason: COUGH Last Admin: 05/20/17 22:20 Dose: 5 ml Ceftriaxone Sodium 1 gm/ (Dextrose) 50 mls @ 200 mls/hr IVPB DAILY [facility] Last Admin: 05/21/17 09:33 Dose: 200 mls/hr Insulin Aspart (Novolog Vial Sliding Scale -) 1 vial SQ ACHS [facility] PRN Reason: Protocol Last Admin: 05/21/17 06:23 Dose: 2 unit Insulin Detemir (Levemir Vial) 20 units SQ HS [facility] Last Admin: 05/20/17 22:23 Dose: 20 units Labetalol HCl (Normodyne -) 300 mg PO BID [facility] Last Admin: 05/21/17 09:32 Dose: 300 mg Methylprednisolone Sodium Succinate (Solu-Medrol -) 40 mg IVPUSH Q6H-IV [facility] Last Admin: 05/21/17 09:32 Dose: 40 mg Mycophenolate Mofetil (Cellcept -) 250 mg PO DAILY [facility] Last Admin: 05/21/17 09:33 Dose: 250 mg Nifedipine (Procardia Xl -) 30 mg PO DAILY [facility] Last Admin: 05/21/17 09:32 Dose: 30 mg Pantoprazole Sodium (Protonix -) 40 mg PO DAILY [facility] Last Admin: 05/21/17 09:32 Dose: 40 mg Sodium Bicarbonate (Sodium Bicarbonate -) 650 mg PO TID [facility] Tacrolimus (Prograf) 1 mg PO BID [facility] Last Admin: 05/21/17 09:33 Dose: 1 mg - Objective Vital Signs: Vital Signs Temperature 97.5 F L 05/21/17 05:32 Pulse Rate 92 H 05/21/17 05:32 Respiratory Rate 20 05/21/17 05:32 Blood Pressure 136/86 05/21/17 05:32 O2 Sat by Pulse Oximetry (%) 100 05/20/17 21:00 Constitutional: Yes: Well Nourished, Calm Eyes: Yes: WNL HENT: Yes: WNL Neck: Yes: WNL Cardiovascular: Yes: Pulse Irregular, S1, S2 Respiratory: Yes: Wheezes (SCATTERED YOSHI WHEEZES) Gastrointestinal: Yes: Normal Bowel Sounds, Soft Extremities: Yes: WNL Edema: Yes Labs: CBC, BMP 05/21/17 06:50 05/21/17 06:30 INR, PTT INR 1.24 (0.82-1.09) H 05/16/17 00:41 Assessment/Plan Problem List - Problems (1) Pleural effusion Code(s): J90 - PLEURAL EFFUSION, NOT ELSEWHERE CLASSIFIED (2) Atelectasis of left lung Code(s): J98.11 - ATELECTASIS (3) Acute on chronic diastolic CHF (congestive heart failure) Code(s): I50.33 - ACUTE ON CHRONIC DIASTOLIC (CONGESTIVE) HEART FAILURE (4) Afib Code(s): I48.91 - UNSPECIFIED ATRIAL FIBRILLATION Qualifiers: Atrial fibrillation type: chronic Qualified Code(s): I48.2 - Chronic atrial fibrillation (5) Diabetes Code(s): E11.9 - TYPE 2 DIABETES MELLITUS WITHOUT COMPLICATIONS Qualifiers: Diabetes mellitus type: type 2 Diabetes mellitus watermelon inspector insulin use: with watermelon inspector use Diabetes mellitus complication status: with kidney complications Diabetes mellitus complication detail: with other kidney complication Qualified Code(s): E11.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; Z79.4 - intermediate project manager (current) use of insulin; Z79.4 - intermediate project manager (current) use of insulin; Z79.4 - intermediate project manager (current) use of insulin ; Z79.4 - FDC (current) use of insulin (6) S/P kidney transplant Code(s): Z94.0 - KIDNEY TRANSPLANT STATUS (7) Shortness of breath Code(s): R06.02 - SHORTNESS OF BREATH 7 LUNG MASS Assessment/Plan inhaled bronchodilators ct guided bx in am medrol taper O2 as needed Follow weights No smoking DR LÓPEZ
[2017-05-21] MEDS ORDERED: INSULIN (NOVOLOG) ASPART 100 UNITS/ML 10ML VIAL ONE (11:37)
[2017-05-21] MEDS: SODIUM BICARBONATE 650 MG TABLET PO SCH ×2 (14:39→21:10)
--- NOTE | 2017-05-21 17:24 | PN ---
Progress Note, Physician History of Present Illness: Pt seen and examined at bedside. He is awake and alert. He does have shortness of breath. - Current Medication List Current Medications: Active Medications Albuterol Sulfate (Ventolin 0.083% Nebulizer Soln -) 1 amp NEB Q4H PRN PRN Reason: SHORT OF BREATH/WHEEZING Last Admin: 05/17/17 03:05 Dose: 1 amp Albuterol/Ipratropium (Duoneb -) 1 amp NEB RQID [facility] Last Admin: 05/21/17 11:15 Dose: 1 amp Apixaban (Eliquis -) 2.5 mg PO BID [facility] Last Admin: 05/19/17 21:41 Dose: 2.5 mg Atorvastatin Calcium (Lipitor -) 20 mg PO HS [facility] Last Admin: 05/20/17 22:18 Dose: 20 mg Ferrous Sulfate (Feosol -) 325 mg PO DAILY [facility] Guaifenesin (Diabetic Tussin Dm -) 5 ml PO Q6H PRN PRN Reason: COUGH Last Admin: 05/20/17 22:20 Dose: 5 ml Ceftriaxone Sodium 1 gm/ (Dextrose) 50 mls @ 200 mls/hr IVPB DAILY [facility] Last Admin: 05/21/17 09:33 Dose: 200 mls/hr Insulin Aspart (Novolog Vial Sliding Scale -) 1 vial SQ ACHS ANIKA PRN Reason: Protocol Last Admin: 05/21/17 17:14 Dose: 6 unit Insulin Detemir (Levemir Vial) 20 units SQ HS [facility] Last Admin: 05/20/17 22:23 Dose: 20 units Labetalol HCl (Normodyne -) 300 mg PO BID [facility] Last Admin: 05/21/17 09:32 Dose: 300 mg Methylprednisolone Sodium Succinate (Solu-Medrol -) 40 mg IVPUSH Q6H-IV [facility] Last Admin: 05/21/17 14:39 Dose: 40 mg Mycophenolate Mofetil (Cellcept -) 250 mg PO DAILY [facility] Last Admin: 05/21/17 09:33 Dose: 250 mg Nifedipine (Procardia Xl -) 30 mg PO DAILY [facility] Last Admin: 05/21/17 09:32 Dose: 30 mg Pantoprazole Sodium (Protonix -) 40 mg PO DAILY [facility] Last Admin: 05/21/17 09:32 Dose: 40 mg Sodium Bicarbonate (Sodium Bicarbonate -) 650 mg PO TID [facility] Last Admin: 05/21/17 14:39 Dose: 650 mg Tacrolimus (Prograf) 1 mg PO BID [facility] Last Admin: 05/21/17 09:33 Dose: 1 mg - Objective Vital Signs: Vital Signs Temperature 97.6 F 05/21/17 14:00 Pulse Rate 97 H 05/21/17 14:00 Respiratory Rate 20 05/21/17 14:00 Blood Pressure 137/85 05/21/17 14:00 O2 Sat by Pulse Oximetry (%) 100 05/20/17 21:00 Constitutional: Yes: Calm Eyes: Yes: Conjunctiva Clear Cardiovascular: Yes: S1, S2 Respiratory: Yes: On Nasal O2, Rhonchi Gastrointestinal: Yes: Soft Genitourinary: Yes: WNL, Other (graft soft and non tender) Musculoskeletal: Yes: WNL Edema: Yes Edema: LLE: 2+, RLE: 2+ Neurological: Yes: Oriented Psychiatric: Yes: Oriented Labs: CBC, BMP 05/21/17 06:50 05/21/17 06:30 INR, PTT INR 1.24 (0.82-1.09) H 05/16/17 00:41 Problem List - Problems (1) JAQUELINE (acute kidney injury) Code(s): N17.9 - ACUTE KIDNEY FAILURE, UNSPECIFIED (2) Acute on chronic diastolic CHF (congestive heart failure) Code(s): I50.33 - ACUTE ON CHRONIC DIASTOLIC (CONGESTIVE) HEART FAILURE Assessment/Plan Current Medications Generic Name Dose Route Start Last Admin Trade Name Freq PRN Reason Stop Dose Admin Albuterol Sulfate 1 amp 05/17/17 02:46 05/17/17 03:05 Ventolin 0.083% Nebulizer Soln - NEB 1 amp Q4H PRN Administration SHORT OF BREATH/WHEEZING Albuterol/Ipratropium 1 amp 05/17/17 09:45 05/21/17 11:15 Duoneb - NEB 1 amp RQID ANIKA Administration Apixaban 2.5 mg 05/16/17 10:00 05/19/17 21:41 Eliquis - PO 2.5 mg BID ANIKA Administration Atorvastatin Calcium 20 mg 05/16/17 03:30 05/20/17 22:18 Lipitor - PO 20 mg HS ANIKA Administration Ferrous Sulfate 325 mg 05/22/17 10:00 Feosol - PO DAILY [facility]IK[facility] Guaifenesin 5 ml 05/18/17 18:05 05/20/17 22:20 Diabetic Tussin Dm - PO 5 ml Q6H PRN Administration COUGH Ceftriaxone Sodium 1 gm/ 50 mls @ 200 mls/hr 05/20/17 10:00 05/21/17 09:33 Dextrose IVPB 200 mls/hr DAILY ANIKA Administration Insulin Aspart 1 vial 05/16/17 07:00 05/21/17 17:14 Novolog Vial Sliding Scale - SQ 6 unit ACHS ANIKA Administration Protocol Insulin Detemir 20 units 05/16/17 22:00 05/20/17 22:23 Levemir Vial SQ 20 units HS ANIKA Administration Labetalol HCl 300 mg 05/16/17 10:00 05/21/17 09:32 Normodyne - PO 300 mg BID ANIKA Administration Methylprednisolone Sodium Succinate 40 mg 05/18/17 11:45 05/21/17 14:39 Solu-Medrol - IVPUSH 40 mg Q6H-IV ANIKA Administration Mycophenolate Mofetil 250 mg 05/16/17 10:00 05/21/17 09:33 Cellcept - PO 250 mg DAILY ANIKA Administration Nifedipine 30 mg 05/16/17 10:00 05/21/17 09:32 Procardia Xl - PO 30 mg DAILY ANIKA Administration Pantoprazole Sodium 40 mg 05/19/17 10:00 05/21/17 09:32 Protonix - PO 40 mg DAILY ANIKA Administration Sodium Bicarbonate 650 mg 05/21/17 14:00 05/21/17 14:39 Sodium Bicarbonate - PO 650 mg TID ANIKA Administration Tacrolimus 1 mg 05/16/17 22:00 05/21/17 09:33 Prograf PO 1 mg BID ANIKA Administration Laboratory Tests 05/19/17 06:58 Iron 26 L TIBC 196 L Iron Saturation 13 L Impression 1. CKD 2. kidney transplant 3. dyspnea 4. a-fib 5. fluid overload 6. BPH 7. DM 8. hypomagnesemia 9. anemia Plan - renal function is worsening - check graft ultrasound - put out a call to Dr Leary - discussed HD with pt - low potassium diet - increase dose of bicarb - will give a dose of lasix as he is uncomfotable - start iron supplements
[2017-05-21] MEDS ORDERED: FUROSEMIDE 40 MG/4 ML INJECTABLE VIAL IVPUSH ONE (17:27)
[2017-05-21] MEDS: ATORVASTATIN CA 20 MG TABLET (FP) PO SCH (21:10)
[2017-05-21] MEDS: INSULIN (LEVEMIR) 100 UNITS/ML UNITS SQ SCH (21:32)
[2017-05-22] MEDS: methylPREDNISolone NA SUCC 40 MG/1 ML VIAL IVPUSH SCH ×4 (02:27→21:13)
[2017-05-22] MEDS: INSULIN SLIDING SCALE (NOVOLOG) 1 VIAL SQ SCH ×4 (06:15→21:22)
[2017-05-22] MEDS: SODIUM BICARBONATE 650 MG TABLET PO SCH ×3 (06:21→21:10)
[2017-05-22 07:18] LABS: CHLORIDE 111 mmol/L (98-107); POTASSIUM 4.7 mmol/L (3.5-5.1); SODIUM 142 mmol/L (136-145)
[2017-05-22 07:28] LABS: ALK PHOS 96 U/L (45-117); ANION GAP 13 (8-16); BILIRUBIN,TOTAL 0.4 mg/dL (0.2-1.0); CO2 18 mmol/L (21-32); CREATININE 5.9 mg/dL (0.7-1.3); GLUCOSE,RANDOM 278 mg/dL (74-106); SGOT/AST 15 U/L (15-37); SGPT/ALT 36 U/L (12-78); TOT PROT 5.6 g/dl (6.4-8.2)
[2017-05-22 08:18] LABS: BLOOD UREA NITROGEN 128 mg/dL (7-18); CALCIUM 6.9 mg/dL (8.5-10.1)
[2017-05-22] MEDS ORDERED: cefTRIAXone SODIUM 1 GM VIAL ONE (08:47)
[2017-05-22] MEDS ORDERED: DEXTROSE 5%-WATER - 50 ML IVPB ONE (08:47)
[2017-05-22] MEDS ORDERED: PT OWN MED DRAWER 7, Y5N ONE ×3 (08:47→16:48)
[2017-05-22] MEDS: ALBUTEROL SO4 2.5/IPRATROPIUM 0.5 INH SOL 3 ML VIAL.NEB. NEB SCH (08:55)
[2017-05-22] MEDS: CEFTRIAXONE 1 GM in DEXTROSE 5%-WATER - 50 ML IVPB SCH (09:48)
[2017-05-22] MEDS: LABETALOL HCL 100 MG TABLET (FP) PO SCH ×2 (09:59→21:10)
[2017-05-22] MEDS: PANTOPRAZOLE 40 MG TABLET (FP) PO SCH (09:59)
[2017-05-22] MEDS ORDERED: FERROUS SO4 325 MG TABLET (FP) PO SCH (10:00)
[2017-05-22] MEDS: NIFEdipine E.R. 30 MG TABLET (FP) PO SCH (10:00)
[2017-05-22] MEDS: MYCOPHENOLATE MOFETIL 250 MG CAPSULE PO SCH (10:00)
[2017-05-22] MEDS: TACROLIMUS ANHYDROUS 1 MG CAPSULE PO SCH ×2 (10:00→21:12)
--- NOTE | 2017-05-22 10:36 | PN ---
Progress Note, Physician History of Present Illness: 82 M hx, of CHF, Renal tx 10 years ago, A- Fib On Eliquis, States he has had SOB X 20 days. Also with associated Bilateral LE edema. Denies any chest pain or pressure. States he flew into airport today. Notes he has been complient with his Eliquis. Denies any chest pain or pressure. 82 yo M with PMHx of AF on eliquis (compliant), renal transplant 2007, HLD, HTN , BPH, and IDDM who was transported to the ED from the airport complaining of MCCLURE and cough. The patient was returning from the [facility] and had difficulty breathing at the airport at which point he was brought here by his son. The patient reports having a progressive non-productive cough and shortness of breath for 20 days. The patient reports associated symptom of swelling in the legs b/l.He endorses increased orthopnea requiring 2 pillows at night. Denies increase in salt intake. He receives all of his care at [facility]. He last saw his industrial paramedic prior to his trip [place]. 1 month ago and he states that at that time his Cr. was 5. The patient denies chest pain , headache, and dizziness. - Current Medication List Current Medications: Active Medications Apixaban (Eliquis -) 2.5 mg PO BID [facility] Last Admin: 05/19/17 21:41 Dose: 2.5 mg Atorvastatin Calcium (Lipitor -) 20 mg PO HS [facility] Last Admin: 05/21/17 21:10 Dose: 20 mg Ferrous Sulfate (Feosol -) 325 mg PO DAILY [facility] Last Admin: 05/22/17 10:00 Dose: 325 mg Guaifenesin (Diabetic Tussin Dm -) 5 ml PO Q6H PRN PRN Reason: COUGH Last Admin: 05/20/17 22:20 Dose: 5 ml Ceftriaxone Sodium 1 gm/ (Dextrose) 50 mls @ 200 mls/hr IVPB DAILY [facility] Last Admin: 05/22/17 09:48 Dose: 200 mls/hr Insulin Aspart (Novolog Vial Sliding Scale -) 1 vial SQ ACHS [facility] PRN Reason: Protocol Last Admin: 05/22/17 06:15 Dose: 8 unit Insulin Detemir (Levemir Vial) 20 units SQ [facility] Last Admin: 05/21/17 21:32 Dose: 20 units Labetalol HCl (Normodyne -) 300 mg PO BID [facility] Last Admin: 05/22/17 09:59 Dose: 300 mg Methylprednisolone Sodium Succinate (Solu-Medrol -) 40 mg IVPUSH Q6H-IV [facility] Last Admin: 05/22/17 09:48 Dose: 40 mg Mycophenolate Mofetil (Cellcept -) 250 mg PO DAILY [facility] Last Admin: 05/22/17 10:00 Dose: 250 mg Nifedipine (Procardia Xl -) 30 mg PO DAILY [facility] Last Admin: 05/22/17 10:00 Dose: 30 mg Pantoprazole Sodium (Protonix -) 40 mg PO DAILY [facility] Last Admin: 05/22/17 09:59 Dose: 40 mg Sodium Bicarbonate (Sodium Bicarbonate -) 650 mg PO TID [facility] Last Admin: 05/22/17 06:21 Dose: 650 mg Tacrolimus (Prograf) 1 mg PO BID [facility] Last Admin: 05/22/17 10:00 Dose: 1 mg - Objective Vital Signs: Vital Signs Temperature 98.6 F 05/22/17 05:36 Pulse Rate 96 H 05/22/17 05:36 Respiratory Rate 22 05/22/17 05:36 Blood Pressure 129/68 05/22/17 05:36 O2 Sat by Pulse Oximetry (%) 96 05/21/17 21:00 Eyes: Yes: WNL, Conjunctiva Clear, EOM Intact HENT: Yes: WNL, Atraumatic, Normocephalic Neck: Yes: WNL, Supple, Trachea Midline Cardiovascular: Yes: WNL, Regular Rate and Rhythm Respiratory: Yes: WNL, Regular, Diminished Gastrointestinal: Yes: WNL, Normal Bowel Sounds Genitourinary: Yes: WNL Musculoskeletal: Yes: WNL Extremities: Yes: WNL Edema: No Integumentary: Yes: WNL Neurological: Yes: WNL, Alert, Oriented ...Motor Strength: WNL Psychiatric: Yes: WNL Labs: CBC, BMP 05/21/17 06:50 05/22/17 06:30 INR, PTT INR 1.24 (0.82-1.09) H 05/16/17 00:41 Assessment/Plan Shortness of breath CT with lung mass CHF exacerbation vs. COPD Monitor I&Os Daily weights Lasix as per renal Further work up mass per pulmonary Atrial fibrillation: On Eliquis Rate controlled HTN, chronic: On Labetalol Pulm: COPD, new diagnosis COPD seen on CT Started on stds as per pulm Triny Large RLL mass suspicious for malignancy. For CT guided biopsy on Sunday. Patient agreeing for further workup of potential malignancy WOULD HOLD ELIQUIS Renal Acute vs. chronic renal failure with Kidney transplant> 10yrs ago Renal transplant rejection? On Prograf and Cellcept Creat elevated, unsure of baseline Renal following Tacrolimus levels low normal Bladder/renal us will d/c telemetry. Prophy: DVT: on Eliquis
--- NOTE | 2017-05-22 11:22 | PN ---
Progress Note, Physician History of Present Illness: PULMONARY ALERT,NAD,+ MCCLURE,-CP,LESS COUGH - Current Medication List Current Medications: Active Medications Apixaban (Eliquis -) 2.5 mg PO BID [facility] Last Admin: 05/19/17 21:41 Dose: 2.5 mg Atorvastatin Calcium (Lipitor -) 20 mg PO HS [facility] Last Admin: 05/21/17 21:10 Dose: 20 mg Ferrous Sulfate (Feosol -) 325 mg PO DAILY [facility] Last Admin: 05/22/17 10:00 Dose: 325 mg Guaifenesin (Diabetic Tussin Dm -) 5 ml PO Q6H PRN PRN Reason: COUGH Last Admin: 05/20/17 22:20 Dose: 5 ml Ceftriaxone Sodium 1 gm/ (Dextrose) 50 mls @ 200 mls/hr IVPB DAILY [facility] Last Admin: 05/22/17 09:48 Dose: 200 mls/hr Insulin Aspart (Novolog Vial Sliding Scale -) 1 vial SQ ACHS [facility] PRN Reason: Protocol Last Admin: 05/22/17 06:15 Dose: 8 unit Insulin Detemir (Levemir Vial) 20 units SQ HS [facility] Last Admin: 05/21/17 21:32 Dose: 20 units Labetalol HCl (Normodyne -) 300 mg PO BID [facility] Last Admin: 05/22/17 09:59 Dose: 300 mg Methylprednisolone Sodium Succinate (Solu-Medrol -) 40 mg IVPUSH Q6H-IV [facility] Last Admin: 05/22/17 09:48 Dose: 40 mg Mycophenolate Mofetil (Cellcept -) 250 mg PO DAILY [facility] Last Admin: 05/22/17 10:00 Dose: 250 mg Nifedipine (Procardia Xl -) 30 mg PO DAILY [facility] Last Admin: 05/22/17 10:00 Dose: 30 mg Pantoprazole Sodium (Protonix -) 40 mg PO DAILY [facility] Last Admin: 05/22/17 09:59 Dose: 40 mg Sodium Bicarbonate (Sodium Bicarbonate -) 650 mg PO TID [facility] Last Admin: 05/22/17 06:21 Dose: 650 mg Tacrolimus (Prograf) 1 mg PO BID [facility] Last Admin: 05/22/17 10:00 Dose: 1 mg - Objective Vital Signs: Vital Signs Temperature 98.6 F 05/22/17 05:36 Pulse Rate 96 H 04/17/18 05:36 Respiratory Rate 22 05/22/17 05:36 Blood Pressure 129/68 05/22/17 05:36 O2 Sat by Pulse Oximetry (%) 96 05/21/17 21:00 Constitutional: Yes: Well Nourished, Calm Eyes: Yes: WNL HENT: Yes: WNL Neck: Yes: WNL Cardiovascular: Yes: Pulse Irregular, S1, S2 Respiratory: Yes: Rhonchi (FEW RHONCHI) Gastrointestinal: Yes: Normal Bowel Sounds, Soft Extremities: Yes: WNL Edema: No Labs: CBC, BMP 05/21/17 06:50 05/22/17 06:30 INR, PTT INR 1.24 (0.82-1.09) H 05/16/17 00:41 Assessment/Plan Problem List - Problems (1) Pleural effusion Code(s): J90 - PLEURAL EFFUSION, NOT ELSEWHERE CLASSIFIED (2) Atelectasis of left lung Code(s): J98.11 - ATELECTASIS (3) Acute on chronic diastolic CHF (congestive heart failure) Code(s): I50.33 - ACUTE ON CHRONIC DIASTOLIC (CONGESTIVE) HEART FAILURE (4) Afib Code(s): I48.91 - UNSPECIFIED ATRIAL FIBRILLATION Qualifiers: Atrial fibrillation type: chronic Qualified Code(s): I48.2 - Chronic atrial fibrillation (5) Diabetes Code(s): E11.9 - TYPE 2 DIABETES MELLITUS WITHOUT COMPLICATIONS Qualifiers: Diabetes mellitus type: type 2 Diabetes mellitus oysterman insulin use: with retirement use Diabetes mellitus complication status: with kidney complications Diabetes mellitus complication detail: with other kidney complication Qualified Code(s): E11.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; Z79.4 - long term care phlebotomist (current) use of insulin; Z79.4 - custodial (current) use of insulin; Z79.4 - long term care phlebotomist (current) use of insulin ; Z79.4 - long term care phlebotomist (current) use of insulin (6) S/P kidney transplant Code(s): Z94.0 - KIDNEY TRANSPLANT STATUS (7) Shortness of breath Code(s): R06.02 - SHORTNESS OF BREATH 7 LUNG MASS Assessment/Plan inhaled bronchodilators ct guided bx today medrol taper O2 as needed Follow weights No smoking DR LÓPEZ
--- NOTE | 2017-05-22 12:59 | PN ---
Progress Note (short form) - Note Progress Note: Subjective: The patient was seen and examined at the bedside, he states he would like to speak to his picker/puller, Dr. Leary (he has not called the office yet) Current Medications Generic Name Dose Route Start Last Admin Trade Name Freq PRN Reason Stop Dose Admin Apixaban 2.5 mg 05/16/17 10:00 05/19/17 21:41 Eliquis - PO 2.5 mg BID [facility] Administration Atorvastatin Calcium 20 mg 05/16/17 03:30 05/21/17 21:10 Lipitor - PO 20 mg HS [facility] Administration Ferrous Sulfate 325 mg 05/22/17 10:00 05/22/17 10:00 Feosol - PO 325 mg DAILY [facility] Administration Guaifenesin 5 ml 05/18/17 18:05 05/20/17 22:20 Diabetic Tussin Dm - PO 5 ml Q6H PRN Administration COUGH Ceftriaxone Sodium 1 gm/ 50 mls @ 200 mls/hr 05/20/17 10:00 05/22/17 09:48 Dextrose IVPB 200 mls/hr DAILY [facility] Administration Insulin Aspart 1 vial 05/16/17 07:00 05/22/17 11:32 Novolog Vial Sliding Scale - SQ 4 unit ACHS [facility] Administration Protocol Insulin Detemir 20 units 05/16/17 22:00 05/21/17 21:32 Levemir Vial SQ 20 units HS [facility] Administration Labetalol HCl 300 mg 05/16/17 10:00 05/22/17 09:59 Normodyne - PO 300 mg BID [facility] Administration Methylprednisolone Sodium Succinate 40 mg 05/22/17 11:30 05/22/17 11:30 Solu-Medrol - IVPUSH Not Given BID [facility] Mycophenolate Mofetil 250 mg 05/16/17 10:00 05/22/17 10:00 Cellcept - PO 250 mg DAILY [facility] Administration Nifedipine 30 mg 05/16/17 10:00 05/22/17 10:00 Procardia Xl - PO 30 mg DAILY [facility] Administration Pantoprazole Sodium 40 mg 05/19/17 10:00 05/22/17 09:59 Protonix - PO 40 mg DAILY [facility] Administration Sodium Bicarbonate 650 mg 05/21/17 14:00 05/22/17 06:21 Sodium Bicarbonate - PO 650 mg TID [facility] Administration Tacrolimus 1 mg 05/16/17 22:00 05/22/17 10:00 Prograf PO 1 mg BID [facility] Administration Objective: Vital Signs Period Temp Pulse Resp BP Sys/Wyatt Pulse Ox Last 24 Hr 97.5 F-98.7 F 85-100 20-22 128-148/68-85 96 Physical Exam: General: NAD, A&Ox3 Lungs: CTA bilaterally Heart: irregular Abd: Soft, non-tender. Normoactive bowel sounds Ext: 2+ b/l lower extremity pitting edema CBCD WBC 8.8 K/mm3 (4.0-10.0) 05/21/17 06:50 RBC 3.25 M/mm3 (4.00-5.60) L 05/21/17 06:50 Hgb 8.1 GM/dL (11.7-16.9) L 05/21/17 06:50 Hct 26.2 % (35.4-49) L 05/21/17 06:50 MCV 80.7 fl (80-96) 05/21/17 06:50 MCHC 30.9 g/dl (32.0-35.9) L 05/21/17 06:50 RDW 20.5 % (11.9-15.9) H 05/21/17 06:50 Plt Count 217 K/MM3 (134-434) 05/21/17 06:50 MPV 8.0 fl (7.5-11.1) 05/21/17 06:50 CMP Sodium 142 mmol/L (136-145) 05/22/17 06:30 Potassium 4.7 mmol/L (3.5-5.1) 05/22/17 06:30 Chloride 111 mmol/L (98-107) H 05/22/17 06:30 Carbon Dioxide 18 mmol/L (21-32) L 05/22/17 06:30 Anion Gap 13 (8-16) 05/22/17 06:30 BUN 128 mg/dL (7-18) H* 05/22/17 06:30 Creatinine 5.9 mg/dL (0.7-1.3) H 05/22/17 06:30 Creat Clearance w eGFR 9.27 (>60) 05/22/17 06:30 Random Glucose 278 mg/dL (74-106) H D 05/22/17 06:30 Calcium 6.9 mg/dL (8.5-10.1) L* 05/22/17 06:30 Total Bilirubin 0.4 mg/dL (0.2-1.0) D 05/22/17 06:30 AST 15 U/L (15-37) D 05/22/17 06:30 ALT 36 U/L (12-78) 05/22/17 06:30 Alkaline Phosphatase 96 U/L (45-117) 05/22/17 06:30 Total Protein 5.6 g/dl (6.4-8.2) L 05/22/17 06:30 Albumin 3.0 g/dl (3.4-5.0) L 05/22/17 06:30 CARDIAC ENZYMES Creatine Kinase 265 IU/L (39-308) 05/16/17 00:41 Troponin I 0.02 ng/ml (0.00-0.05) 05/16/17 07:14 Microbiology 05/20/17 08:00 Urine - Urine Clean Catch Urine Culture - Preliminary Lactose Fermenting Neg Bacilli Lactose Fermenting Neg Bacilli#2 Assessment: This is an 82 year old male with PMHx of CHF, a.fib, HTN, renal transplant 10 years ago, ex smoker, who presented to the ED with shortness of breath. Plan: 1) Shortness of breath - Acute diastolic heart failure vs. acute COPD exacerbation Diastolic HF - Given IV lasix yesterday, will continue today - Strict I&O - Daily weights - ECHO with normal EF COPD - Improving - CT chest: mild to moderate COPD - Duonebs qid - Albuterol nebs q4h prn - Solu-medrol taper - Appreciate pulmonary consult 2) Large right lower lobe mass - As evidence on chest CT - For CT guided lung biopsy tomorrow - Continue to hold Eliquis - Appreciate pulmonary consult 3) Right middle lobe consolidation - Per pulmonary, does not appear to be infectious - Continue to monitor off abx 4) CKD s/p kidney transplant - Worsening kidney function, ongoing discussion with nephrology re: starting HD - Hold Prednisone given the patient is on Solu-medrol - Continue Cellcept - Continue Prograf - Avoid NSAIDS 5) UTI - F/u urine culture - Continue Ceftriaxone 6) Anemia - Iron low, start ferrous sulfate - F/u stool for occult blood - May need to start epogen 7) A.fib - Hold Eliquis for procedure tomorrow 8) F/E/N: - Hyperkalemia: Resolved - Diabetic/sodium controlled diet - Monitor electrolytes 9) Prophylaxis: - Hold Eliquis for procedure tomorrow 10) Dispo: - Requires continued inpatient care CODE STATUS: FULL CODE Visit type - Emergency Visit Emergency Visit: Yes ED Registration Date: 05/16/17 Care time: The patient presented to the Emergency Department on the above date and was hospitalized for further evaluation of their emergent condition. - New Patient This patient is new to me today: No - Critical Care Critical Care patient: No
[2017-05-22] MEDS ORDERED: FUROSEMIDE 40 MG/4 ML INJECTABLE VIAL IVPUSH ONE (15:06)
--- NOTE | 2017-05-22 15:11 | PN ---
Progress Note, Physician History of Present Illness: Pt seen and examined at bedside. He is awake and alert. He responded to the dose of lasix yesterday. - Current Medication List Current Medications: Active Medications Apixaban (Eliquis -) 2.5 mg PO BID [facility] Last Admin: 05/19/17 21:41 Dose: 2.5 mg Atorvastatin Calcium (Lipitor -) 20 mg PO HS [facility] Last Admin: 05/21/17 21:10 Dose: 20 mg Ferrous Sulfate (Feosol -) 325 mg PO DAILY [facility] Last Admin: 05/22/17 10:00 Dose: 325 mg Furosemide (Lasix Injection -) 40 mg IVPUSH ONCE ONE Stop: 05/22/17 15:07 Guaifenesin (Diabetic Tussin Dm -) 5 ml PO Q6H PRN PRN Reason: COUGH Last Admin: 05/20/17 22:20 Dose: 5 ml Ceftriaxone Sodium 1 gm/ (Dextrose) 50 mls @ 200 mls/hr IVPB DAILY [facility] Last Admin: 05/22/17 09:48 Dose: 200 mls/hr Insulin Aspart (Novolog Vial Sliding Scale -) 1 vial SQ ACHS [facility] PRN Reason: Protocol Last Admin: 05/22/17 11:32 Dose: 4 unit Insulin Detemir (Levemir Vial) 20 units SQ HS [facility] Last Admin: 05/21/17 21:32 Dose: 20 units Labetalol HCl (Normodyne -) 300 mg PO BID [facility] Last Admin: 05/22/17 09:59 Dose: 300 mg Methylprednisolone Sodium Succinate (Solu-Medrol -) 40 mg IVPUSH BID [facility] Last Admin: 05/22/17 11:30 Dose: Not Given Mycophenolate Mofetil (Cellcept -) 250 mg PO DAILY [facility] Last Admin: 05/22/17 10:00 Dose: 250 mg Nifedipine (Procardia Xl -) 30 mg PO DAILY [facility] Last Admin: 05/22/17 10:00 Dose: 30 mg Pantoprazole Sodium (Protonix -) 40 mg PO DAILY [facility] Last Admin: 05/22/17 09:59 Dose: 40 mg Sodium Bicarbonate (Sodium Bicarbonate -) 650 mg PO TID [facility] Last Admin: 05/22/17 14:07 Dose: 650 mg Tacrolimus (Prograf) 1 mg PO BID [facility] Last Admin: 05/22/17 10:00 Dose: 1 mg - Objective Vital Signs: Vital Signs Temperature 98.4 F 05/22/17 14:00 Pulse Rate 100 H 05/22/17 14:00 Respiratory Rate 20 05/22/17 14:00 Blood Pressure 131/80 05/22/17 14:00 O2 Sat by Pulse Oximetry (%) 96 05/22/17 09:00 Constitutional: Yes: Calm Eyes: Yes: Conjunctiva Clear HENT: Yes: Atraumatic Neck: Yes: Supple Cardiovascular: Yes: S1, S2 Respiratory: Yes: On Nasal O2, Rhonchi Gastrointestinal: Yes: Soft Genitourinary: Yes: WNL Musculoskeletal: Yes: WNL Edema: Yes Edema: LLE: 2+, RLE: 2+ Neurological: Yes: Oriented Psychiatric: Yes: Oriented Labs: CBC, BMP 05/21/17 06:50 05/22/17 06:30 INR, PTT INR 1.24 (0.82-1.09) H 05/16/17 00:41 Problem List - Problems (1) JAQUELINE (acute kidney injury) Code(s): N17.9 - ACUTE KIDNEY FAILURE, UNSPECIFIED (2) Acute on chronic diastolic CHF (congestive heart failure) Code(s): I50.33 - ACUTE ON CHRONIC DIASTOLIC (CONGESTIVE) HEART FAILURE Assessment/Plan Current Medications Generic Name Dose Route Start Last Admin Trade Name Freq PRN Reason Stop Dose Admin Apixaban 2.5 mg 05/16/17 10:00 05/19/17 21:41 Eliquis - PO 2.5 mg BID [facility]A Administration Atorvastatin Calcium 20 mg 05/16/17 03:30 05/21/17 21:10 Lipitor - PO 20 mg HS [facility] Administration Ferrous Sulfate 325 mg 05/22/17 10:00 05/22/17 10:00 Feosol - PO 325 mg DAILY [facility] Administration Furosemide 40 mg 05/22/17 15:06 Lasix Injection - IVPUSH 05/22/17 15:07 ONCE ONE Guaifenesin 5 ml 05/18/17 18:05 05/20/17 22:20 Diabetic Tussin Dm - PO 5 ml Q6H PRN Administration COUGH Ceftriaxone Sodium 1 gm/ 50 mls @ 200 mls/hr 05/20/17 10:00 05/22/17 09:48 Dextrose IVPB 200 mls/hr DAILY [facility] Administration Insulin Aspart 1 vial 05/16/17 07:00 04/17/18 11:32 Novolog Vial Sliding Scale - SQ 4 unit ACHS [facility] Administration Protocol Insulin Detemir 20 units 05/16/17 22:00 05/21/17 21:32 Levemir Vial SQ 20 units HS [facility] Administration Labetalol HCl 300 mg 05/16/17 10:00 05/22/17 09:59 Normodyne - PO 300 mg BID [facility] Administration Methylprednisolone Sodium Succinate 40 mg 05/22/17 11:30 05/22/17 11:30 Solu-Medrol - IVPUSH Not Given BID [facility] Mycophenolate Mofetil 250 mg 05/16/17 10:00 05/22/17 10:00 Cellcept - PO 250 mg DAILY [facility] Administration Nifedipine 30 mg 05/16/17 10:00 05/22/17 10:00 Procardia Xl - PO 30 mg DAILY [facility] Administration Pantoprazole Sodium 40 mg 05/19/17 10:00 05/22/17 09:59 Protonix - PO 40 mg DAILY [facility] Administration Sodium Bicarbonate 650 mg 05/21/17 14:00 05/22/17 14:07 Sodium Bicarbonate - PO 650 mg TID [facility]IKA Administration Tacrolimus 1 mg 05/16/17 22:00 05/22/17 10:00 Prograf PO 1 mg BID [facility] Administration Impression 1. CKD 2. kidney transplant 3. dyspnea 4. a-fib 5. fluid overload 6. BPH 7. DM 8. hypomagnesemia 9. anemia Plan - will give another dose of IV lasix - called and discussed care with Dr Leary who the pt follows with. Pt does not want to start HD at this time. He will follow with Dr Leary after discharge. Made call with pt in the room - pt is fluid overloaded and will benefit from diuretics to control volume status - check graft ultrasound - discussed HD with pt again today - renal diet - cont iron
[2017-05-22] MEDS ORDERED: ALBUTEROL SO4 2.5/IPRATROPIUM 0.5 INH SOL 3 ML VIAL.NEB. NEB ONE (15:41)
[2017-05-22] MEDS ORDERED: INSULIN (NOVOLOG) ASPART 100 UNITS/ML 10ML VIAL ONE (16:45)
[2017-05-22] MEDS: FERROUS SO4 325 MG TABLET (FP) PO SCH (17:05)
[2017-05-22] MEDS: guaiFENesin/D-M SUGAR-FREE/ACLHOL-FREE 118 ML BOTTLE PO PRN (19:54)
[2017-05-22] MEDS: ALBUTEROL SO4 2.5/IPRATROPIUM 0.5 INH SOL 3 ML VIAL.NEB. NEB PRN (21:10)
[2017-05-22] MEDS: ATORVASTATIN CA 20 MG TABLET (FP) PO SCH (21:11)
[2017-05-22] MEDS: INSULIN (LEVEMIR) 100 UNITS/ML UNITS SQ SCH (21:21)
[2017-05-23] MEDS: SODIUM BICARBONATE 650 MG TABLET PO SCH ×3 (06:05→21:02)
[2017-05-23] MEDS: FUROSEMIDE 40 MG/4 ML INJECTABLE VIAL IVPUSH SCH ×2 (06:05→13:06)
[2017-05-23] MEDS: INSULIN SLIDING SCALE (NOVOLOG) 1 VIAL SQ SCH ×4 (06:07→21:02)
[2017-05-23 07:50] LABS: ANION GAP 15 (8-16); CHLORIDE 111 mmol/L (98-107); CO2 18 mmol/L (21-32); GLUCOSE,RANDOM 178 mg/dL (74-106); POTASSIUM 4.3 mmol/L (3.5-5.1); SODIUM 144 mmol/L (136-145)
[2017-05-23 07:54] LABS: ALK PHOS 86 U/L (45-117); BILIRUBIN,TOTAL 0.5 mg/dL (0.2-1.0); CALCIUM 7.2 mg/dL (8.5-10.1); CREATININE 5.9 mg/dL (0.7-1.3); SGOT/AST 14 U/L (15-37); SGPT/ALT 36 U/L (12-78); TOT PROT 5.7 g/dl (6.4-8.2)
[2017-05-23 08:27] LABS: BLOOD UREA NITROGEN 131 mg/dL (7-18)
[2017-05-23] MEDS: ALBUTEROL SO4 2.5/IPRATROPIUM 0.5 INH SOL 3 ML VIAL.NEB. NEB PRN ×2 (08:41→13:53)
[2017-05-23] MEDS ORDERED: DEXTROSE 5%-WATER - 50 ML IVPB ONE (09:07)
[2017-05-23] MEDS ORDERED: cefTRIAXone SODIUM 1 GM VIAL ONE (09:07)
[2017-05-23] MEDS: NIFEdipine E.R. 30 MG TABLET (FP) PO SCH (09:24)
[2017-05-23] MEDS: FERROUS SO4 325 MG TABLET (FP) PO SCH ×3 (09:24→18:00)
[2017-05-23] MEDS: CEFTRIAXONE 1 GM in DEXTROSE 5%-WATER - 50 ML IVPB SCH (09:24)
[2017-05-23] MEDS: LABETALOL HCL 100 MG TABLET (FP) PO SCH ×2 (09:25→21:02)
[2017-05-23] MEDS: methylPREDNISolone NA SUCC 40 MG/1 ML VIAL IVPUSH SCH (09:25)
[2017-05-23] MEDS: MYCOPHENOLATE MOFETIL 250 MG CAPSULE PO SCH (09:25)
[2017-05-23] MEDS: APIXABAN 2.5 MG TABLET PO SCH ×2 (09:26→21:03)
[2017-05-23] MEDS: guaiFENesin/D-M SUGAR-FREE/ACLHOL-FREE 118 ML BOTTLE PO PRN ×2 (09:27→21:21)
[2017-05-23] MEDS: PANTOPRAZOLE 40 MG TABLET (FP) PO SCH (09:27)
[2017-05-23] MEDS: TACROLIMUS ANHYDROUS 1 MG CAPSULE PO SCH ×2 (09:27→21:02)
--- NOTE | 2017-05-23 10:52 | PN ---
Progress Note, Physician History of Present Illness: PULMONARY ALERT,-RESP DISTRESS,FOR CT GUIDED BX TODAY - Current Medication List Current Medications: Active Medications Albuterol/Ipratropium (Duoneb -) 1 amp NEB Q6H PRN PRN Reason: SHORTNESS OF BREATH Last Admin: 05/23/17 08:41 Dose: 1 amp Apixaban (Eliquis -) 2.5 mg PO BID [facility] Last Admin: 05/23/17 09:26 Dose: Not Given Atorvastatin Calcium (Lipitor -) 20 mg PO HS [facility] Last Admin: 05/22/17 21:11 Dose: 20 mg Ferrous Sulfate (Feosol -) 325 mg PO TIDCM [facility] Last Admin: 05/23/17 09:24 Dose: 325 mg Furosemide (Lasix Injection -) 40 mg IVPUSH BID@0600,1400 [facility] Last Admin: 05/23/17 06:05 Dose: 40 mg Guaifenesin (Diabetic Tussin Dm -) 5 ml PO Q6H PRN PRN Reason: COUGH Last Admin: 05/23/17 09:27 Dose: 5 ml Ceftriaxone Sodium 1 gm/ (Dextrose) 50 mls @ 200 mls/hr IVPB DAILY [facility] Last Admin: 05/23/17 09:24 Dose: 200 mls/hr Insulin Aspart (Novolog Vial Sliding Scale -) 1 vial SQ ACHS [facility] PRN Reason: Protocol Last Admin: 05/23/17 06:07 Dose: 2 unit Insulin Detemir (Levemir Vial) 20 units SQ HS [facility] Last Admin: 05/22/17 21:21 Dose: 20 units Labetalol HCl (Normodyne -) 300 mg PO BID [facility] Last Admin: 05/23/17 09:25 Dose: 300 mg Methylprednisolone Sodium Succinate (Solu-Medrol -) 40 mg IVPUSH BID [facility] Last Admin: 05/23/17 09:25 Dose: 40 mg Mycophenolate Mofetil (Cellcept -) 250 mg PO DAILY [facility] Last Admin: 05/23/17 09:25 Dose: 250 mg Nifedipine (Procardia Xl -) 30 mg PO DAILY [facility] Last Admin: 05/23/17 09:24 Dose: 30 mg Pantoprazole Sodium (Protonix -) 40 mg PO DAILY [facility] Last Admin: 05/23/17 09:27 Dose: 40 mg Sodium Bicarbonate (Sodium Bicarbonate -) 650 mg PO TID [facility] Last Admin: 05/23/17 06:05 Dose: Not Given Tacrolimus (Prograf) 1 mg PO BID [facility] Last Admin: 05/23/17 09:27 Dose: 1 mg - Objective Vital Signs: Vital Signs Temperature 98.9 F 05/23/17 05:00 Pulse Rate 96 H 05/23/17 09:00 Respiratory Rate 20 05/23/17 09:00 Blood Pressure 139/79 05/23/17 09:00 O2 Sat by Pulse Oximetry (%) 96 05/23/17 09:00 Constitutional: Yes: Well Nourished, Calm Eyes: Yes: WNL HENT: Yes: WNL Neck: Yes: WNL Cardiovascular: Yes: Pulse Irregular, S1, S2 Respiratory: Yes: Rhonchi (FEW RHONCHI) Gastrointestinal: Yes: Normal Bowel Sounds, Soft Edema: Yes Edema: LLE: 2+, RLE: 2+ Labs: CBC, BMP 05/21/17 06:50 05/23/17 06:55 INR, PTT INR 1.24 (0.82-1.09) H 05/16/17 00:41 Assessment/Plan Problem List - Problems (1) Pleural effusion Code(s): J90 - PLEURAL EFFUSION, NOT ELSEWHERE CLASSIFIED (2) Atelectasis of left lung Code(s): J98.11 - ATELECTASIS (3) Acute on chronic diastolic CHF (congestive heart failure) Code(s): I50.33 - ACUTE ON CHRONIC DIASTOLIC (CONGESTIVE) HEART FAILURE (4) Afib Code(s): I48.91 - UNSPECIFIED ATRIAL FIBRILLATION Qualifiers: Atrial fibrillation type: chronic Qualified Code(s): I48.2 - Chronic atrial fibrillation (5) Diabetes Code(s): E11.9 - TYPE 2 DIABETES MELLITUS WITHOUT COMPLICATIONS Qualifiers: Diabetes mellitus type: type 2 Diabetes mellitus correction insulin use: with extermination supervisor use Diabetes mellitus complication status: with kidney complications Diabetes mellitus complication detail: with other kidney complication Qualified Code(s): E11.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
--- NOTE | 2017-05-23 10:53 | PN ---
Progress Note, Physician History of Present Illness: 82 M hx, of CHF, Renal tx 10 years ago, A- Fib On Eliquis, States he has had SOB X 20 days. Also with associated Bilateral LE edema. Denies any chest pain or pressure. States he flew into airport today. Notes he has been complient with his Eliquis. Denies any chest pain or pressure. 82 yo M with PMHx of AF on eliquis (compliant), renal transplant 2007, HLD, HTN , BPH, and IDDM who was transported to the ED from the airport complaining of MCCLURE and cough. The patient was returning from the [facility] and had difficulty breathing at the airport at which point he was brought here by his son. The patient reports having a progressive non-productive cough and shortness of breath for 20 days. The patient reports associated symptom of swelling in the legs b/l.He endorses increased orthopnea requiring 2 pillows at night. Denies increase in salt intake. He receives all of his care at [facility]. He last saw his ldr nurse prior to his trip appox. 1 month ago and he states that at that time his Cr. was 5. The patient denies chest pain , headache, and dizziness. - Current Medication List Current Medications: Active Medications Albuterol/Ipratropium (Duoneb -) 1 amp NEB Q6H PRN PRN Reason: SHORTNESS OF BREATH Last Admin: 05/23/17 08:41 Dose: 1 amp Apixaban (Eliquis -) 2.5 mg PO BID ANIKA Last Admin: 05/23/17 09:26 Dose: Not Given Atorvastatin Calcium (Lipitor -) 20 mg PO HS ANIKA Last Admin: 05/22/17 21:11 Dose: 20 mg Ferrous Sulfate (Feosol -) 325 mg PO TIDCM ANIKA Last Admin: 05/23/17 09:24 Dose: 325 mg Furosemide (Lasix Injection -) 40 mg IVPUSH BID@0600,1400 [facility] Last Admin: 05/23/17 06:05 Dose: 40 mg Guaifenesin (Diabetic Tussin Dm -) 5 ml PO Q6H PRN PRN Reason: COUGH Last Admin: 05/23/17 09:27 Dose: 5 ml Ceftriaxone Sodium 1 gm/ (Dextrose) 50 mls @ 200 mls/hr IVPB DAILY ANIKA Last Admin: 05/23/17 09:24 Dose: 200 mls/hr Insulin Aspart (Novolog Vial Sliding Scale -) 1 vial SQ ACHS [facility] PRN Reason: Protocol Last Admin: 05/23/17 06:07 Dose: 2 unit Insulin Detemir (Levemir Vial) 20 units SQ HS [facility] Last Admin: 05/22/17 21:21 Dose: 20 units Labetalol HCl (Normodyne -) 300 mg PO BID [facility] Last Admin: 05/23/17 09:25 Dose: 300 mg Methylprednisolone Sodium Succinate (Solu-Medrol -) 40 mg IVPUSH BID [facility] Last Admin: 05/23/17 09:25 Dose: 40 mg Mycophenolate Mofetil (Cellcept -) 250 mg PO DAILY [facility] Last Admin: 05/23/17 09:25 Dose: 250 mg Nifedipine (Procardia Xl -) 30 mg PO DAILY [facility] Last Admin: 05/23/17 09:24 Dose: 30 mg Pantoprazole Sodium (Protonix -) 40 mg PO DAILY [facility] Last Admin: 05/23/17 09:27 Dose: 40 mg Sodium Bicarbonate (Sodium Bicarbonate -) 650 mg PO TID [facility] Last Admin: 05/23/17 06:05 Dose: Not Given Tacrolimus (Prograf) 1 mg PO BID [facility] Last Admin: 05/23/17 09:27 Dose: 1 mg - Objective Vital Signs: Vital Signs Temperature 98.9 F 05/23/17 05:00 Pulse Rate 96 H 05/23/17 09:00 Respiratory Rate 20 05/23/17 09:00 Blood Pressure 139/79 05/23/17 09:00 O2 Sat by Pulse Oximetry (%) 96 05/23/17 09:00 Eyes: Yes: WNL, Conjunctiva Clear, EOM Intact HENT: Yes: WNL, Atraumatic, Normocephalic Neck: Yes: WNL, Supple, Trachea Midline Cardiovascular: Yes: WNL, Regular Rate and Rhythm Respiratory: Yes: WNL, Regular, CTA Bilaterally Gastrointestinal: Yes: WNL, Normal Bowel Sounds Genitourinary: Yes: WNL Musculoskeletal: Yes: WNL Extremities: Yes: WNL Edema: No Integumentary: Yes: WNL Neurological: Yes: WNL, Alert, Oriented ...Motor Strength: WNL Psychiatric: Yes: WNL Labs: CBC, BMP 05/21/17 06:50 05/23/17 06:55 INR, PTT INR 1.24 (0.82-1.09) H 05/16/17 00:41 Assessment/Plan Shortness of breath CT with lung mass CHF exacerbation vs. COPD Monitor I&Os Daily weights Lasix as per renal Further work up mass per pulmonary Atrial fibrillation: On Eliquis Rate controlled HTN, chronic: On Labetalol Pulm: COPD, new diagnosis COPD seen on CT Started on stds as per pulm Triny Large RLL mass suspicious for malignancy. For CT guided biopsy on Sunday. Patient agreeing for further workup of potential malignancy WOULD HOLD ELIQUIS Renal Acute vs. chronic renal failure with Kidney transplant> 10yrs ago Renal transplant rejection? On Prograf and Cellcept Creat elevated, unsure of baseline Renal following Tacrolimus levels low normal Bladder/renal us will d/c telemetry. Prophy: DVT: on Eliquis
--- NOTE | 2017-05-23 12:52 | PN ---
Progress Note (short form) - Note Progress Note: ID consult dictated asked to see for positive urine culture asymptomatic bacteriuria-klebsiella in urine culture in a patient with renal transplant no fevers, no dysuria, no leukocytosis no pain over transplanted kidney sonogram no obstruction 10 years out from transplant given he has some pyuria- will give 3 days ertapenem ckd/volume overload- per renal lung mass- s/p biopsy d/w Renal Problem List - Problems (1) Asymptomatic bacteriuria Code(s): R82.71 - BACTERIURIA (2) S/P kidney transplant Code(s): Z94.0 - KIDNEY TRANSPLANT STATUS (3) CKD (chronic kidney disease) Code(s): N18.9 - CHRONIC KIDNEY DISEASE, UNSPECIFIED
--- NOTE | 2017-05-23 12:53 | PN ---
Progress Note, Physician History of Present Illness: Pt seen and examined at bedside. He is awake and alert. He is eager to go home. He does not want any HD therapy at this time. He will follow with Dr Leary after discharge. - Current Medication List Current Medications: Active Medications Albuterol/Ipratropium (Duoneb -) 1 amp NEB Q6H PRN PRN Reason: SHORTNESS OF BREATH Last Admin: 05/23/17 08:41 Dose: 1 amp Apixaban (Eliquis -) 2.5 mg PO BID [facility] Last Admin: 05/23/17 09:26 Dose: Not Given Atorvastatin Calcium (Lipitor -) 20 mg PO HS [facility] Last Admin: 05/22/17 21:11 Dose: 20 mg Ferrous Sulfate (Feosol -) 325 mg PO TIDCM [facility] Last Admin: 05/23/17 09:24 Dose: 325 mg Furosemide (Lasix Injection -) 40 mg IVPUSH BID@0600,1400 [facility] Last Admin: 05/23/17 06:05 Dose: 40 mg Guaifenesin (Diabetic Tussin Dm -) 5 ml PO Q6H PRN PRN Reason: COUGH Last Admin: 05/23/17 09:27 Dose: 5 ml Ertapenem 0.5 gm/ Sodium (Chloride) 100 mls @ 200 mls/hr IVPB DAILY ANIKA PRN Reason: Protocol Insulin Aspart (Novolog Vial Sliding Scale -) 1 vial SQ ACHS ANIKA PRN Reason: Protocol Last Admin: 05/23/17 11:09 Dose: Not Given Insulin Detemir (Levemir Vial) 20 units SQ HS [facility] Last Admin: 05/22/17 21:21 Dose: 20 units Labetalol HCl (Normodyne -) 300 mg PO BID [facility] Last Admin: 05/23/17 09:25 Dose: 300 mg Methylprednisolone Sodium Succinate (Solu-Medrol -) 40 mg IVPUSH DAILY [facility] Mycophenolate Mofetil (Cellcept -) 250 mg PO DAILY [facility] Last Admin: 05/23/17 09:25 Dose: 250 mg Nifedipine (Procardia Xl -) 30 mg PO DAILY [facility] Last Admin: 05/23/17 09:24 Dose: 30 mg Pantoprazole Sodium (Protonix -) 40 mg PO DAILY [facility] Last Admin: 05/23/17 09:27 Dose: 40 mg Sodium Bicarbonate (Sodium Bicarbonate -) 650 mg PO TID [facility] Last Admin: 05/23/17 06:05 Dose: Not Given Tacrolimus (Prograf) 1 mg PO BID [facility] Last Admin: 05/23/17 09:27 Dose: 1 mg - Objective Vital Signs: Vital Signs Temperature 98.9 F 05/23/17 05:00 Pulse Rate 91 H 05/23/17 11:26 Respiratory Rate 19 05/23/17 11:26 Blood Pressure 158/85 05/23/17 11:26 O2 Sat by Pulse Oximetry (%) 99 05/23/17 11:26 Constitutional: Yes: Calm Eyes: Yes: Conjunctiva Clear HENT: Yes: Atraumatic Cardiovascular: Yes: S1, S2 Respiratory: Yes: CTA Bilaterally Gastrointestinal: Yes: Normal Bowel Sounds, Soft Genitourinary: Yes: Other (graft non tender) Musculoskeletal: Yes: WNL Extremities: Yes: WNL Edema: Yes Edema: LLE: 2+, RLE: 2+ Neurological: Yes: Oriented Psychiatric: Yes: Oriented Labs: CBC, BMP 05/21/17 06:50 05/23/17 06:55 INR, PTT INR 1.24 (0.82-1.09) H 05/16/17 00:41 Problem List - Problems (1) JAQUELINE (acute kidney injury) Code(s): N17.9 - ACUTE KIDNEY FAILURE, UNSPECIFIED (2) Acute on chronic diastolic CHF (congestive heart failure) Code(s): I50.33 - ACUTE ON CHRONIC DIASTOLIC (CONGESTIVE) HEART FAILURE Assessment/Plan Current Medications Generic Name Dose Route Start Last Admin Trade Name Freq PRN Reason Stop Dose Admin Albuterol/Ipratropium 1 amp 05/22/17 19:40 05/23/17 08:41 Duoneb - NEB 1 amp Q6H PRN Administration SHORTNESS OF BREATH Apixaban 2.5 mg 05/16/17 10:00 05/23/17 09:26 Eliquis - PO Not Given BID [facility] Atorvastatin Calcium 20 mg 05/16/17 03:30 05/22/17 21:11 Lipitor - PO 20 mg HS ANIKA Administration Ferrous Sulfate 325 mg 05/22/17 17:30 05/23/17 09:24 Feosol - PO 325 mg TIDCM ANIKA Administration Furosemide 40 mg 05/23/17 06:00 05/23/17 06:05 Lasix Injection - IVPUSH 40 mg BID@0600,1400 ANIKA Administration Guaifenesin 5 ml 05/18/17 18:05 05/23/17 09:27 Diabetic Tussin Dm - PO 5 ml Q6H PRN Administration COUGH Ertapenem 0.5 gm/ Sodium 100 mls @ 200 mls/hr 05/23/17 13:00 Chloride IVPB DAILY [facility] Protocol Insulin Aspart 1 vial 05/16/17 07:00 05/23/17 11:09 Novolog Vial Sliding Scale - SQ Not Given ACHS [facility] Protocol Insulin Detemir 20 units 05/16/17 22:00 05/22/17 21:21 Levemir Vial SQ 20 units HS ANIKA Administration Labetalol HCl 300 mg 05/16/17 10:00 05/23/17 09:25 Normodyne - PO 300 mg BID ANIKA Administration Methylprednisolone Sodium Succinate 40 mg 05/24/17 10:00 Solu-Medrol - IVPUSH DAILY ANIKA Mycophenolate Mofetil 250 mg 05/16/17 10:00 05/23/17 09:25 Cellcept - PO 250 mg DAILY ANIKA Administration Nifedipine 30 mg 05/16/17 10:00 05/23/17 09:24 Procardia Xl - PO 30 mg DAILY ANIKA Administration Pantoprazole Sodium 40 mg 05/19/17 10:00 05/23/17 09:27 Protonix - PO 40 mg DAILY ANIKA Administration Sodium Bicarbonate 650 mg 05/21/17 14:00 05/23/17 06:05 Sodium Bicarbonate - PO Not Given TID ANIKA Tacrolimus 1 mg 05/16/17 22:00 05/23/17 09:27 Prograf PO 1 mg BID ANIKA Administration Impression 1. CKD 2. kidney transplant 3. dyspnea 4. a-fib 5. fluid overload 6. BPH 7. DM 8. hypomagnesemia 9. anemia 10. asymptomatic bacteruria Plan - cont with lasix - monitor renal function - will need a higher dose of torsemide when discharged - ID called for urine cultures - discussed with medical team - pt gave himself a dose of procrit on Sunday - renal diet - cont iron
[2017-05-23] MEDS: ERTAPENEM SODIUM 0.5 GM in SODIUM CHLORIDE 100 ML IVPB SCH (14:18)
--- NOTE | 2017-05-23 17:14 | PN ---
Progress Note (short form) - Note Progress Note: Subjective: The patient was seen and examined at the bedside, he is s/p lung biopsy. ESBL UTI. Started on Ertapenem Current Medications Generic Name Dose Route Start Last Admin Trade Name Freq PRN Reason Stop Dose Admin Albuterol/Ipratropium 1 amp 05/22/17 19:40 05/23/17 13:53 Duoneb - NEB 1 amp Q6H PRN Administration SHORTNESS OF BREATH Apixaban 2.5 mg 05/16/17 10:00 05/23/17 09:26 Eliquis - PO Not Given BID ANIKA Atorvastatin Calcium 20 mg 05/16/17 03:30 05/22/17 21:11 Lipitor - PO 20 mg HS ANIKA Administration Ferrous Sulfate 325 mg 05/22/17 17:30 05/23/17 13:01 Feosol - PO 325 mg TIDCM ANIKA Administration Furosemide 40 mg 05/23/17 06:00 05/23/17 13:06 Lasix Injection - IVPUSH 40 mg BID@0600,1400 ANIKA Administration Guaifenesin 5 ml 05/18/17 18:05 05/23/17 09:27 Diabetic Tussin Dm - PO 5 ml Q6H PRN Administration COUGH Ertapenem 0.5 gm/ Sodium 100 mls @ 200 mls/hr 05/23/17 13:00 05/23/17 14:18 Chloride IVPB 200 mls/hr DAILY ANIKA Administration Protocol Insulin Aspart 1 vial 05/16/17 07:00 05/23/17 11:09 Novolog Vial Sliding Scale - SQ Not Given ACHS ANIKA Protocol Insulin Detemir 20 units 05/16/17 22:00 05/22/17 21:21 Levemir Vial SQ 20 units HS ANIKA Administration Labetalol HCl 300 mg 05/16/17 10:00 05/23/17 09:25 Normodyne - PO 300 mg BID ANIKA Administration Methylprednisolone Sodium Succinate 40 mg 05/24/17 10:00 Solu-Medrol - IVPUSH DAILY ANIKA Mycophenolate Mofetil 250 mg 05/16/17 10:00 05/23/17 09:25 Cellcept - PO 250 mg DAILY ANIKA Administration Nifedipine 30 mg 05/16/17 10:00 05/23/17 09:24 Procardia Xl - PO 30 mg DAILY ANIKA Administration Pantoprazole Sodium 40 mg 05/19/17 10:00 05/23/17 09:27 Protonix - PO 40 mg DAILY ANIKA Administration Sodium Bicarbonate 650 mg 05/21/17 14:00 05/23/17 13:06 Sodium Bicarbonate - PO 650 mg TID ANIKA Administration Tacrolimus 1 mg 05/16/17 22:00 05/23/17 09:27 Prograf PO 1 mg BID ANIKA Administration Objective: Vital Signs Period Temp Pulse Resp BP Sys/Wyatt Pulse Ox Last 24 Hr 97.6 F-99.5 F 90-108 14- 139-160/77-98 96-100 Physical Exam: General: NAD, A&Ox3 Lungs: CTA bilaterally Heart: irregular Abd: Soft, non-tender. Normoactive bowel sounds Ext: 2+ b/l lower extremity pitting edema CBCD WBC 8.8 K/mm3 (4.0-10.0) 05/21/17 06:50 RBC 3.25 M/mm3 (4.00-5.60) L 05/21/17 06:50 Hgb 8.1 GM/dL (11.7-16.9) L 05/21/17 06:50 Hct 26.2 % (35.4-49) L 05/21/17 06:50 MCV 80.7 fl (80-96) 05/21/17 06:50 MCHC 30.9 g/dl (32.0-35.9) L 05/21/17 06:50 RDW 20.5 % (11.9-15.9) H 05/21/17 06:50 Plt Count 217 K/MM3 (134-434) 05/21/17 06:50 MPV 8.0 fl (7.5-11.1) 05/21/17 06:50 CMP Sodium 144 mmol/L (136-145) 05/23/17 06:55 Potassium 4.3 mmol/L (3.5-5.1) 05/23/17 06:55 Chloride 111 mmol/L (98-107) H 05/23/17 06:55 Carbon Dioxide 18 mmol/L (21-32) L 05/23/17 06:55 Anion Gap 15 (8-16) 05/23/17 06:55 BUN 131 mg/dL (7-18) H* 05/23/17 06:55 Creatinine 5.9 mg/dL (0.7-1.3) H 05/23/17 06:55 Creat Clearance w eGFR 9.27 (>60) 05/23/17 06:55 Random Glucose 178 mg/dL (74-106) H D 05/23/17 06:55 Calcium 7.2 mg/dL (8.5-10.1) L 05/23/17 06:55 Total Bilirubin 0.5 mg/dL (0.2-1.0) D 05/23/17 06:55 AST 14 U/L (15-37) L 05/23/17 06:55 ALT 36 U/L (12-78) 05/23/17 06:55 Alkaline Phosphatase 86 U/L (45-117) 05/23/17 06:55 Total Protein 5.7 g/dl (6.4-8.2) L 05/23/17 06:55 Albumin 3.0 g/dl (3.4-5.0) L 05/23/17 06:55 CARDIAC ENZYMES Creatine Kinase 265 IU/L (39-308) 05/16/17 00:41 Troponin I 0.02 ng/ml (0.00-0.05) 05/16/17 07:14 Microbiology 05/20/17 08:00 Urine - Urine Clean Catch Urine Culture - Final Klebsiella Pneumoniae - Esbl Klebsiella Pneumoniae - Esbl#2 Assessment: This is an 82 year old male with PMHx of CHF, a.fib, HTN, renal transplant 10 years ago, ex smoker, who presented to the ED with shortness of breath. Plan: 1) Shortness of breath - Acute diastolic heart failure vs. acute COPD exacerbation Diastolic HF - Continue Lasix bid, will need to be discharged on Torsemide 60mg po daily per nephrology - Strict I&O - Daily weights - ECHO with normal EF COPD - Improving - CT chest: mild to moderate COPD - Duonebs qid - Albuterol nebs q4h prn - Solu-medrol taper - Appreciate pulmonary consult 2) Large right lower lobe mass - S/p lung biopsy today - Appreciate pulmonary consult 3) Right middle lobe consolidation - Per pulmonary, does not appear to be infectious - Continue to monitor off abx 4) CKD s/p kidney transplant - Worsening kidney function, ongoing discussion with nephrology re: starting HD - Hold Prednisone given the patient is on Solu-medrol - Continue Cellcept - Continue Prograf - Avoid NSAIDS 5) ESBL UTI - Switched to Ertapenem today, will need 3 days - Appreciate ID consult 6) Anemia - Iron low, start ferrous sulfate - F/u stool for occult blood 7) A.fib - Eliquis restarted 8) F/E/N: - Hyperkalemia: Resolved - Diabetic/sodium controlled diet - Monitor electrolytes 9) Prophylaxis: - Restart Eliquis - OOB ambulating 10) Dispo: - Requires continued inpatient care CODE STATUS: FULL CODE Visit type - Emergency Visit Emergency Visit: Yes ED Registration Date: 05/16/17 Care time: The patient presented to the Emergency Department on the above date and was hospitalized for further evaluation of their emergent condition. - New Patient This patient is new to me today: No - Critical Care Critical Care patient: No
--- NOTE | 2017-05-23 17:52 | CONS ---
DATE OF CONSULTATION: DATE OF DICTATION: 05/23/2017 INFECTIOUS DISEASE CONSULTATION HISTORY OF PRESENT ILLNESS: This is an 82-year-old man who has a history of renal transplant in 2007. He has chronic kidney disease and now currently has a baseline creatinine of 5. He started having some shortness of breath about 20 days ago but needed to go to the [facility], because his brother . While there shortness of breath increased, and his son brought him straight from the airport to the hospital on the . He has had a workup that has included a renal bladder ultrasound that shows no obstruction. He is being diuresed. He is being seen by cardiology as well as renal. A urinalysis was sent and was notable with the most recent urinalysis for 2+ leukocytes with 34 white cells and he had a urine culture that grew E. coli ESBL, and I am asked to see him for this reason. He is awake and alert. He knows he has edema of his legs which he states is new and problematic. His shortness of breath is improved. He is found on this admission to have a lung mass and was scheduled for biopsy today, but they were unable to do it. He has no fever. Denies any dysuria. He has no abdominal pain or CVA or suprapubic pain. PAST MEDICAL HISTORY: Notable for CHF, hypertension, atrial fibrillation, renal transplant 10 years ago. He also apparently has had prostate surgery in the past. He has a baseline creatinine of 5. He still has a functional AV fistula in his left arm. He has a history of diabetes as well. SOCIAL HISTORY: Notable for former cigarette smoker, he quit 25 years ago. No alcohol or drug use. He lives with his , he drives a taxi, ambulates. FAMILY HISTORY: Notable for leukemia in his mother and a brother of throat cancer. ALLERGIES: No known drug allergies. MEDICATION: At home include Eliquis, Procrit, labetalol, mycophenolate, Procardia, simvastatin, sodium bicarbonate, tacrolimus, tamsulosin, and furosemide. REVIEW OF SYSTEMS: Notable for peripheral edema. He reports shortness of breath is improved. He has no fever, chills. He has no flank pain. PHYSICAL EXAMINATION: General: He is awake and alert. Vital signs: Temperature 97.8, pulse 108, blood pressure 152/96, respiratory rate 20, he is saturating 99% on 2 L. HEENT: Normocephalic. Eyes are anicteric. Neck: Supple. Lungs: Crackles at the bases. Heart: Regular rate and rhythm. Abdomen: Soft, he has no CVA tenderness, he has no suprapubic pain. Extremities: 2 to 3+ pitting edema. LABORATORY: Notable for white count of 8.8, hemoglobin 8.1, platelets 217, INR 1.2, BUN and creatinine are 131 and 5.9. LFTs are normal. Urinalysis as stated before 2+ leukocytes and 34 white cells. IMPRESSION: In summary, this is an elderly man 10 years out renal transplant, admitted with worsening chronic kidney disease and volume overload who has evidence of asymptomatic bacteruria but he does have some pyuria, so given this I would suggest we treat him for 3 days with ertapenem, further evaluation per renal. Lung mass status post biopsy. Chris [id number] MTDD
[2017-05-23] MEDS ORDERED: INSULIN (NOVOLOG) ASPART 100 UNITS/ML 10ML VIAL ONE (20:39)
[2017-05-23] MEDS: ATORVASTATIN CA 20 MG TABLET (FP) PO SCH (21:02)
[2017-05-23] MEDS: INSULIN (LEVEMIR) 100 UNITS/ML UNITS SQ SCH (21:03)
[2017-05-24] MEDS: FUROSEMIDE 40 MG/4 ML INJECTABLE VIAL IVPUSH SCH (05:47)
[2017-05-24] MEDS: SODIUM BICARBONATE 650 MG TABLET PO SCH ×3 (05:47→21:16)
[2017-05-24] MEDS: INSULIN SLIDING SCALE (NOVOLOG) 1 VIAL SQ SCH ×4 (06:39→21:25)
[2017-05-24 07:54] LABS: ANION GAP 15 (8-16); CALCIUM 7.4 mg/dL (8.5-10.1); CHLORIDE 113 mmol/L (98-107); CO2 18 mmol/L (21-32); GLUCOSE,RANDOM 99 mg/dL (74-106); POTASSIUM 4.4 mmol/L (3.5-5.1); SODIUM 146 mmol/L (136-145)
[2017-05-24 07:56] LABS: CREATININE 5.9 mg/dL (0.7-1.3)
[2017-05-24 08:07] LABS: HEMATOCRIT 26.3 % (35.4-49); HEMOGLOBIN 8.3 GM/dL (11.7-16.9); MCH 25.1 pg (25.7-33.7); MCHC 31.6 g/dl (32.0-35.9); MEAN CELL VOLUME 79.7 fl (80-96); MEAN PLT VOLUME 7.7 fl (7.5-11.1); PLATELET COUNT 222 K/MM3 (134-434); RDW 20.5 % (11.9-15.9); WHITE BLOOD COUNT 8.1 K/mm3 (4.0-10.0)
[2017-05-24 08:19] LABS: BLOOD UREA NITROGEN 147 mg/dL (7-18)
[2017-05-24] MEDS: ALBUTEROL SO4 2.5/IPRATROPIUM 0.5 INH SOL 3 ML VIAL.NEB. NEB PRN ×2 (08:50→20:57)
[2017-05-24] MEDS ORDERED: PT OWN MED DRAWER 7, Y5N ONE (09:05)
[2017-05-24] MEDS: ERTAPENEM SODIUM 0.5 GM in SODIUM CHLORIDE 100 ML IVPB SCH (09:21)
[2017-05-24] MEDS: LABETALOL HCL 100 MG TABLET (FP) PO SCH ×2 (09:22→21:16)
[2017-05-24] MEDS: FERROUS SO4 325 MG TABLET (FP) PO SCH ×3 (09:22→17:23)
[2017-05-24] MEDS: methylPREDNISolone NA SUCC 40 MG/1 ML VIAL IVPUSH SCH (09:22)
[2017-05-24] MEDS: NIFEdipine E.R. 30 MG TABLET (FP) PO SCH (09:22)
[2017-05-24] MEDS: APIXABAN 2.5 MG TABLET PO SCH ×2 (09:22→21:15)
[2017-05-24] MEDS: PANTOPRAZOLE 40 MG TABLET (FP) PO SCH (09:22)
[2017-05-24] MEDS: TACROLIMUS ANHYDROUS 1 MG CAPSULE PO SCH ×2 (09:23→21:16)
[2017-05-24] MEDS: MYCOPHENOLATE MOFETIL 250 MG CAPSULE PO SCH (09:23)
[2017-05-24] MEDS ORDERED: ERTAPENEM SODIUM 0.5 GM in SODIUM CHLORIDE 100 ML IVPB SCH (10:00)
--- NOTE | 2017-05-24 10:09 | PN ---
Progress Note, Physician History of Present Illness: 82 M hx, of CHF, Renal tx 10 years ago, A- Fib On Eliquis, States he has had SOB X 20 days. Also with associated Bilateral LE edema. Denies any chest pain or pressure. States he flew into airport today. Notes he has been complient with his Eliquis. Denies any chest pain or pressure. 82 yo M with PMHx of AF on eliquis (compliant), renal transplant 2007, HLD, HTN , BPH, and IDDM who was transported to the ED from the airport complaining of MCCLURE and cough. The patient was returning from the [facility] and had difficulty breathing at the airport at which point he was brought here by his son. The patient reports having a progressive non-productive cough and shortness of breath for 20 days. The patient reports associated symptom of swelling in the legs b/l.He endorses increased orthopnea requiring 2 pillows at night. Denies increase in salt intake. He receives all of his care at [facility]. He last saw his garment cutter prior to his trip appox. 1 month ago and he states that at that time his Cr. was 5. The patient denies chest pain , headache, and dizziness. - Current Medication List Current Medications: Active Medications Albuterol/Ipratropium (Duoneb -) 1 amp NEB Q6H PRN PRN Reason: SHORTNESS OF BREATH Last Admin: 05/23/17 13:53 Dose: 1 amp Apixaban (Eliquis -) 2.5 mg PO BID ANIKA Last Admin: 05/24/17 09:22 Dose: 2.5 mg Atorvastatin Calcium (Lipitor -) 20 mg PO HS ANIKA Last Admin: 05/23/17 21:02 Dose: 20 mg Ferrous Sulfate (Feosol -) 325 mg PO TIDCM ANIKA Last Admin: 05/24/17 09:22 Dose: 325 mg Furosemide (Lasix Injection -) 40 mg IVPUSH BID@0600,1400 [facility] Last Admin: 05/24/17 05:47 Dose: 40 mg Guaifenesin (Diabetic Tussin Dm -) 5 ml PO Q6H PRN PRN Reason: COUGH Last Admin: 05/23/17 21:21 Dose: 5 ml Ertapenem 0.5 gm/ Sodium (Chloride) 100 mls @ 200 mls/hr IVPB DAILY [facility] PRN Reason: Protocol Last Admin: 05/24/17 09:21 Dose: 200 mls/hr Insulin Aspart (Novolog Vial Sliding Scale -) 1 vial SQ ACHS [facility] PRN Reason: Protocol Last Admin: 05/24/17 06:39 Dose: Not Given Insulin Detemir (Levemir Vial) 20 units SQ HS [facility] Last Admin: 05/23/17 21:03 Dose: 20 units Labetalol HCl (Normodyne -) 300 mg PO BID [facility] Last Admin: 05/24/17 09:22 Dose: 300 mg Methylprednisolone Sodium Succinate (Solu-Medrol -) 40 mg IVPUSH DAILY [facility] Last Admin: 05/24/17 09:22 Dose: 40 mg Mycophenolate Mofetil (Cellcept -) 250 mg PO DAILY [facility] Last Admin: 05/24/17 09:23 Dose: 250 mg Nifedipine (Procardia Xl -) 30 mg PO DAILY [facility] Last Admin: 05/24/17 09:22 Dose: 30 mg Pantoprazole Sodium (Protonix -) 40 mg PO DAILY [facility] Last Admin: 05/24/17 09:22 Dose: 40 mg Sodium Bicarbonate (Sodium Bicarbonate -) 650 mg PO TID [facility] Last Admin: 05/24/17 05:47 Dose: 650 mg Tacrolimus (Prograf) 1 mg PO BID [facility] Last Admin: 05/24/17 09:23 Dose: 1 mg - Objective Vital Signs: Vital Signs Temperature 97.9 F 05/24/17 07:30 Pulse Rate 98 H 05/24/17 07:30 Respiratory Rate 18 05/24/17 07:33 Blood Pressure 124/70 05/24/17 07:30 O2 Sat by Pulse Oximetry (%) 97 05/24/17 07:33 Eyes: Yes: WNL, Conjunctiva Clear, EOM Intact HENT: Yes: WNL, Atraumatic, Normocephalic Neck: Yes: WNL, Supple, Trachea Midline Cardiovascular: Yes: Pulse Irregular Respiratory: Yes: WNL, Regular, CTA Bilaterally Gastrointestinal: Yes: WNL, Normal Bowel Sounds Genitourinary: Yes: WNL Musculoskeletal: Yes: WNL Extremities: Yes: WNL Edema: No Integumentary: Yes: WNL Neurological: Yes: WNL, Alert, Oriented ...Motor Strength: WNL Psychiatric: Yes: WNL Labs: CBC, BMP 05/24/17 06:18 05/24/17 06:18 INR, PTT INR 1.24 (0.82-1.09) H 05/16/17 00:41 Assessment/Plan Shortness of breath CT with lung mass CHF exacerbation vs. COPD Monitor I&Os Daily weights Lasix as per renal Further work up mass per pulmonary Atrial fibrillation: on Eliquis Rate controlled HTN, chronic: On Labetalol Pulm: COPD, new diagnosis COPD seen on CT Started on stds as per pulm Duonebs Large RLL mass suspicious for malignancy. s/p CT guided biopsy. Patient agreeing for further workup of potential malignancy Renal Acute vs. chronic renal failure with Kidney transplant> 10yrs ago Renal transplant rejection? On Prograf and Cellcept Creat elevated, unsure of baseline Renal following Tacrolimus levels low normal Bladder/renal us will d/c telemetry. Prophy: DVT: on Eliquis
--- NOTE | 2017-05-24 11:27 | PN ---
Progress Note, Physician Chief Complaint: ID Sitting in a chair very comfortable saying he feels better ( couph) Ertepenem - Current Medication List Current Medications: Active Medications Albuterol/Ipratropium (Duoneb -) 1 amp NEB Q6H PRN PRN Reason: SHORTNESS OF BREATH Last Admin: 05/24/17 08:50 Dose: 1 amp Apixaban (Eliquis -) 2.5 mg PO BID [facility] Last Admin: 05/24/17 09:22 Dose: 2.5 mg Atorvastatin Calcium (Lipitor -) 20 mg PO HS [facility] Last Admin: 05/23/17 21:02 Dose: 20 mg Ferrous Sulfate (Feosol -) 325 mg PO TIDCM [facility] Last Admin: 05/24/17 09:22 Dose: 325 mg Furosemide (Lasix Injection -) 40 mg IVPUSH BID@0600,1400 [facility] Last Admin: 05/24/17 05:47 Dose: 40 mg Guaifenesin (Diabetic Tussin Dm -) 5 ml PO Q6H PRN PRN Reason: COUGH Last Admin: 05/23/17 21:21 Dose: 5 ml Ertapenem 0.5 gm/ Sodium (Chloride) 100 mls @ 200 mls/hr IVPB DAILY [facility] PRN Reason: Protocol Last Admin: 05/24/17 09:21 Dose: 200 mls/hr Insulin Aspart (Novolog Vial Sliding Scale -) 1 vial SQ ACHS [facility] PRN Reason: Protocol Last Admin: 05/24/17 06:39 Dose: Not Given Insulin Detemir (Levemir Vial) 20 units SQ HS [facility] Last Admin: 05/23/17 21:03 Dose: 20 units Labetalol HCl (Normodyne -) 300 mg PO BID [facility] Last Admin: 05/24/17 09:22 Dose: 300 mg Methylprednisolone Sodium Succinate (Solu-Medrol -) 40 mg IVPUSH DAILY [facility] Last Admin: 05/24/17 09:22 Dose: 40 mg Mycophenolate Mofetil (Cellcept -) 250 mg PO DAILY [facility] Last Admin: 05/24/17 09:23 Dose: 250 mg Nifedipine (Procardia Xl -) 30 mg PO DAILY [facility] Last Admin: 05/24/17 09:22 Dose: 30 mg Pantoprazole Sodium (Protonix -) 40 mg PO DAILY [facility] Last Admin: 05/24/17 09:22 Dose: 40 mg Sodium Bicarbonate (Sodium Bicarbonate -) 650 mg PO TID [facility] Last Admin: 05/24/17 05:47 Dose: 650 mg Tacrolimus (Prograf) 1 mg PO BID [facility] Last Admin: 05/24/17 09:23 Dose: 1 mg - Objective Vital Signs: Vital Signs Temperature 97.9 F 05/24/17 07:30 Pulse Rate 98 H 05/24/17 07:30 Respiratory Rate 18 05/24/17 07:33 Blood Pressure 124/70 05/24/17 07:30 O2 Sat by Pulse Oximetry (%) 97 05/24/17 07:33 Constitutional: Yes: Well Nourished, No Distress HENT: Yes: WNL, Atraumatic Neck: Yes: WNL, Supple Cardiovascular: Yes: S1, S2 Respiratory: Yes: WNL, Regular, CTA Bilaterally. No: Rales, Rhonchi Gastrointestinal: Yes: WNL, Normal Bowel Sounds, Soft. No: Tenderness, Tenderness, Epigastrium Edema: Yes Labs: CBC, BMP 05/24/17 06:18 05/24/17 06:18 INR, PTT INR 1.24 (0.82-1.09) H 05/16/17 00:41 Assessment/Plan Microbiology 05/20/17 08:00 Urine - Urine Clean Catch Urine Culture - Final Klebsiella Pneumoniae - Esbl Klebsiella Pneumoniae - Esbl#2 Laboratory Tests 05/19/17 05/23/17 05/24/17 18:00 06:55 06:18 WBC 8.1 Hgb 8.3 L Hct 26.3 L Plt Count 222 Creatinine 5.9 H Creat Clearance w eGFR 9.27 Urine RBC (Auto) 8 Urine Bacteria Many Assessment Urinary tract infection ESBL Dose adjusted for Cr Cl Plan Continue Ertepenem and finalize sensitivities Duration med as noted in our note 05/23 Sanjiv TERRAZAS
--- NOTE | 2017-05-24 12:38 | PN ---
Progress Note, Physician History of Present Illness: Pt seen and examined at bedside. He is awake and alert. He feels that edema is improving. - Current Medication List Current Medications: Active Medications Albuterol/Ipratropium (Duoneb -) 1 amp NEB Q6H PRN PRN Reason: SHORTNESS OF BREATH Last Admin: 05/24/17 08:50 Dose: 1 amp Apixaban (Eliquis -) 2.5 mg PO BID [facility] Last Admin: 05/24/17 09:22 Dose: 2.5 mg Atorvastatin Calcium (Lipitor -) 20 mg PO HS [facility] Last Admin: 05/23/17 21:02 Dose: 20 mg Ferrous Sulfate (Feosol -) 325 mg PO TIDCM [facility] Last Admin: 05/24/17 09:22 Dose: 325 mg Furosemide (Lasix Injection -) 40 mg IVPUSH BID@0600,1400 [facility] Last Admin: 05/24/17 05:47 Dose: 40 mg Guaifenesin (Diabetic Tussin Dm -) 5 ml PO Q6H PRN PRN Reason: COUGH Last Admin: 05/23/17 21:21 Dose: 5 ml Ertapenem 0.5 gm/ Sodium (Chloride) 100 mls @ 200 mls/hr IVPB DAILY [facility] PRN Reason: Protocol Last Admin: 05/24/17 09:21 Dose: 200 mls/hr Insulin Aspart (Novolog Vial Sliding Scale -) 1 vial SQ ACHS [facility] PRN Reason: Protocol Last Admin: 05/24/17 06:39 Dose: Not Given Insulin Detemir (Levemir Vial) 20 units SQ HS [facility] Last Admin: 05/23/17 21:03 Dose: 20 units Labetalol HCl (Normodyne -) 300 mg PO BID [facility] Last Admin: 05/24/17 09:22 Dose: 300 mg Methylprednisolone Sodium Succinate (Solu-Medrol -) 40 mg IVPUSH DAILY [facility] Last Admin: 05/24/17 09:22 Dose: 40 mg Mycophenolate Mofetil (Cellcept -) 250 mg PO DAILY [facility] Last Admin: 05/24/17 09:23 Dose: 250 mg Nifedipine (Procardia Xl -) 30 mg PO DAILY [facility] Last Admin: 05/24/17 09:22 Dose: 30 mg Pantoprazole Sodium (Protonix -) 40 mg PO DAILY [facility] Last Admin: 05/24/17 09:22 Dose: 40 mg Sodium Bicarbonate (Sodium Bicarbonate -) 650 mg PO TID [facility] Last Admin: 05/24/17 05:47 Dose: 650 mg Tacrolimus (Prograf) 1 mg PO BID [facility] Last Admin: 05/24/17 09:23 Dose: 1 mg - Objective Vital Signs: Vital Signs Temperature 97.9 F 05/24/17 07:30 Pulse Rate 98 H 05/24/17 07:30 Respiratory Rate 18 05/24/17 07:33 Blood Pressure 124/70 05/24/17 07:30 O2 Sat by Pulse Oximetry (%) 97 05/24/17 07:33 Constitutional: Yes: Calm Eyes: Yes: Conjunctiva Clear HENT: Yes: Atraumatic Cardiovascular: Yes: S1, S2 Respiratory: Yes: On Nasal O2 Gastrointestinal: Yes: Soft Genitourinary: Yes: WNL Musculoskeletal: Yes: WNL Edema: Yes Edema: LLE: 1+, RLE: 1+ Neurological: Yes: Oriented Psychiatric: Yes: Oriented Labs: CBC, BMP 05/24/17 06:18 05/24/17 06:18 INR, PTT INR 1.24 (0.82-1.09) H 05/16/17 00:41 Problem List - Problems (1) JAQUELINE (acute kidney injury) Code(s): N17.9 - ACUTE KIDNEY FAILURE, UNSPECIFIED (2) Acute on chronic diastolic CHF (congestive heart failure) Code(s): I50.33 - ACUTE ON CHRONIC DIASTOLIC (CONGESTIVE) HEART FAILURE Assessment/Plan Current Medications Generic Name Dose Route Start Last Admin Trade Name Freq PRN Reason Stop Dose Admin Albuterol/Ipratropium 1 amp 05/22/17 19:40 05/24/17 08:50 Duoneb - NEB 1 amp Q6H PRN Administration SHORTNESS OF BREATH Apixaban 2.5 mg 05/16/17 10:00 05/24/17 09:22 Eliquis - PO 2.5 mg BID [facility]IKA Administration Atorvastatin Calcium 20 mg 05/16/17 03:30 05/23/17 21:02 Lipitor - PO 20 mg HS [facility]IKA Administration Ferrous Sulfate 325 mg 05/22/17 17:30 05/24/17 09:22 Feosol - PO 325 mg TIDCM ANIKA Administration Furosemide 40 mg 05/23/17 06:00 05/24/17 05:47 Lasix Injection - IVPUSH 40 mg BID@0600,1400 [facility] Administration Guaifenesin 5 ml 05/18/17 18:05 05/23/17 21:21 Diabetic Tussin Dm - PO 5 ml Q6H PRN Administration COUGH Ertapenem 0.5 gm/ Sodium 100 mls @ 200 mls/hr 05/23/17 13:00 05/24/17 09:21 Chloride IVPB 200 mls/hr DAILY [facility]A Administration Protocol Insulin Aspart 1 vial 05/16/17 07:00 05/24/17 06:39 Novolog Vial Sliding Scale - SQ Not Given ACHS ANIKA Protocol Insulin Detemir 20 units 05/16/17 22:00 05/23/17 21:03 Levemir Vial SQ 20 units HS [facility] Administration Labetalol HCl 300 mg 05/16/17 10:00 05/24/17 09:22 Normodyne - PO 300 mg BID [facility] Administration Methylprednisolone Sodium Succinate 40 mg 05/24/17 10:00 05/24/17 09:22 Solu-Medrol - IVPUSH 40 mg DAILY [facility] Administration Mycophenolate Mofetil 250 mg 05/16/17 10:00 05/24/17 09:23 Cellcept - PO 250 mg DAILY [facility] Administration Nifedipine 30 mg 05/16/17 10:00 05/24/17 09:22 Procardia Xl - PO 30 mg DAILY [facility] Administration Pantoprazole Sodium 40 mg 05/19/17 10:00 05/24/17 09:22 Protonix - PO 40 mg DAILY [facility] Administration Sodium Bicarbonate 650 mg 05/21/17 14:00 05/24/17 05:47 Sodium Bicarbonate - PO 650 mg TID [facility]IKA Administration Tacrolimus 1 mg 05/16/17 22:00 05/24/17 09:23 Prograf PO 1 mg BID [facility]IKA Administration Impression 1. CKD 2. kidney transplant 3. dyspnea 4. a-fib 5. fluid overload 6. BPH 7. DM 8. hypomagnesemia 9. anemia 10. asymptomatic bacteruria Plan - will change lasix to daily - repeat labs in am - cont abx - will need a higher dose of torsemide when discharged - pt gave himself a dose of procrit on Sunday - renal diet - cont iron - will follow
--- NOTE | 2017-05-24 12:54 | PN ---
Progress Note (short form) - Note Progress Note: PULMONARY States breathing is improving. some cough and wheezing. s/p CT guided biopsy. Last Vital Signs Temp Pulse Resp BP Pulse Ox 97.9 F 98 H 18 124/70 97 05/24/17 07:30 05/24/17 07:30 05/24/17 07:33 05/24/17 07:30 05/24/17 07:33 Gen: NAD at rest Heart: RRR Lung: scattered rhonchi, wheezes Abd: soft, nontender Ext: no edema CBC, BMP 05/24/17 06:18 05/24/17 06:18 Active Medications Albuterol/Ipratropium (Duoneb -) 1 amp NEB Q6H PRN PRN Reason: SHORTNESS OF BREATH Last Admin: 05/24/17 08:50 Dose: 1 amp Apixaban (Eliquis -) 2.5 mg PO BID [facility] Last Admin: 05/24/17 09:22 Dose: 2.5 mg Atorvastatin Calcium (Lipitor -) 20 mg PO HS [facility] Last Admin: 05/23/17 21:02 Dose: 20 mg Ferrous Sulfate (Feosol -) 325 mg PO TIDCM [facility] Last Admin: 05/24/17 09:22 Dose: 325 mg Furosemide (Lasix Injection -) 40 mg IVPUSH DAILY [facility] Guaifenesin (Diabetic Tussin Dm -) 5 ml PO Q6H PRN PRN Reason: COUGH Last Admin: 05/23/17 21:21 Dose: 5 ml Ertapenem 0.5 gm/ Sodium (Chloride) 100 mls @ 200 mls/hr IVPB DAILY [facility] PRN Reason: Protocol Last Admin: 05/24/17 09:21 Dose: 200 mls/hr Insulin Aspart (Novolog Vial Sliding Scale -) 1 vial SQ ACHS [facility] PRN Reason: Protocol Last Admin: 05/24/17 06:39 Dose: Not Given Insulin Detemir (Levemir Vial) 20 units SQ HS [facility] Last Admin: 05/23/17 21:03 Dose: 20 units Labetalol HCl (Normodyne -) 300 mg PO BID [facility] Last Admin: 05/24/17 09:22 Dose: 300 mg Methylprednisolone Sodium Succinate (Solu-Medrol -) 40 mg IVPUSH DAILY [facility] Last Admin: 05/24/17 09:22 Dose: 40 mg Mycophenolate Mofetil (Cellcept -) 250 mg PO DAILY [facility] Last Admin: 05/24/17 09:23 Dose: 250 mg Nifedipine (Procardia Xl -) 30 mg PO DAILY [facility] Last Admin: 05/24/17 09:22 Dose: 30 mg Pantoprazole Sodium (Protonix -) 40 mg PO DAILY [facility] Last Admin: 05/24/17 09:22 Dose: 40 mg Sodium Bicarbonate (Sodium Bicarbonate -) 650 mg PO TID [facility] Last Admin: 05/24/17 05:47 Dose: 650 mg Tacrolimus (Prograf) 1 mg PO BID [facility] Last Admin: 05/24/17 09:23 Dose: 1 mg A/P Lung Mass Acute COPD Exacerbation Acute on Chronic Diastolic Heart Failure Atrial Fibrillation DM h/o Renal Transplant Smoker - f/u pathology - medrol taper - inhaled bronchodilators - continue lasix - monitor urine output, creatinine - smoking cessation
--- NOTE | 2017-05-24 13:25 | PN ---
Physical Exam: SUBJECTIVE: Patient seen and examined at the bedside. Ambulating around room, states he feels well but still having episodes of coughing. Assured him that his lungs sound better and that his oxygen is stable, however, if he needs supplemental oxygen, it is available to him as needed. No chest pain. He wants to follow up with Dr. Leary, whom he has known for 15 years (kidney specialist) once he is discharged. OBJECTIVE: Vital Signs Period Temp Pulse Resp BP Sys/Wyatt Pulse Ox Last 24 Hr 97.4 F-98.9 F 93-108 18-20 124-152/64-96 97-97 GENERAL: The patient is awake, alert, and fully oriented, in no acute distress HEAD: Normal with no signs of trauma. EYES: PERRL, extraocular movements intact, sclera anicteric, conjunctiva clear. No ptosis. ENT: Ears normal, nares patent, oropharynx clear without exudates, moist mucous membranes. NECK: Trachea midline, full range of motion, supple. LUNGS: mild expiratory wheezing bilaterally, tolerating room air ABDOMEN: Soft, nontender, nondistended, normoactive bowel sounds, no guarding, no rebound, no hepatosplenomegaly, no masses. EXTREMITIES: 2+ pulses, warm, well-perfused, no edema. NEUROLOGICAL: Normal speech, gait not observed. PSYCH: Normal mood, normal affect. SKIN: Warm, dry, normal turgor, no rashes or lesions noted Laboratory Results - last 24 hr 05/23/17 05/23/17 05/24/17 17:03 20:57 05:43 WBC RBC Hgb Hct MCV MCH MCHC RDW Plt Count MPV Sodium Potassium Chloride Carbon Dioxide Anion Gap BUN Creatinine POC Glucometer 371 349 106 Random Glucose Calcium 05/24/17 05/24/17 06:18 06:18 WBC 8.1 RBC 3.30 L Hgb 8.3 L Hct 26.3 L MCV 79.7 L MCH 25.1 L MCHC 31.6 L RDW 20.5 H Plt Count 222 MPV 7.7 Sodium 146 H Potassium 4.4 Chloride 113 H Carbon Dioxide 18 L Anion Gap 15 BUN 147 H* Creatinine 5.9 H POC Glucometer Random Glucose 99 D Calcium 7.4 L Active Medications Generic Name Dose Route Start Last Admin Trade Name Freq PRN Reason Stop Dose Admin Albuterol/Ipratropium 1 amp 05/22/17 19:40 05/24/17 08:50 Duoneb - NEB 1 amp Q6H PRN Administration SHORTNESS OF BREATH Apixaban 2.5 mg 05/16/17 10:00 05/24/17 09:22 Eliquis - PO 2.5 mg BID ANIKA Administration Atorvastatin Calcium 20 mg 05/16/17 03:30 05/23/17 21:02 Lipitor - PO 20 mg HS [facility]IKA Administration Ferrous Sulfate 325 mg 05/22/17 17:30 05/24/17 12:22 Feosol - PO 325 mg TIDCM ANIKA Administration Furosemide 40 mg 05/25/17 10:00 Lasix Injection - IVPUSH DAILY [facility] Guaifenesin 5 ml 05/18/17 18:05 05/23/17 21:21 Diabetic Tussin Dm - PO 5 ml Q6H PRN Administration COUGH Ertapenem 0.5 gm/ Sodium 100 mls @ 200 mls/hr 05/23/17 13:00 05/24/17 09:21 Chloride IVPB 200 mls/hr DAILY [facility]IKA Administration Protocol Insulin Aspart 1 vial 05/16/17 07:00 05/24/17 11:22 Novolog Vial Sliding Scale - SQ Not Given ACHS [facility] Protocol Insulin Detemir 20 units 05/16/17 22:00 05/23/17 21:03 Levemir Vial SQ 20 units HS [facility]A Administration Labetalol HCl 300 mg 05/16/17 10:00 05/24/17 09:22 Normodyne - PO 300 mg BID [facility] Administration Methylprednisolone Sodium Succinate 40 mg 05/24/17 10:00 05/24/17 09:22 Solu-Medrol - IVPUSH 40 mg DAILY [facility] Administration Mycophenolate Mofetil 250 mg 05/16/17 10:00 05/24/17 09:23 Cellcept - PO 250 mg DAILY [facility] Administration Nifedipine 30 mg 05/16/17 10:00 05/24/17 09:22 Procardia Xl - PO 30 mg DAILY [facility] Administration Pantoprazole Sodium 40 mg 05/19/17 10:00 05/24/17 09:22 Protonix - PO 40 mg DAILY [facility] Administration Sodium Bicarbonate 650 mg 05/21/17 14:00 05/24/17 13:22 Sodium Bicarbonate - PO 650 mg TID [facility]IKA Administration Tacrolimus 1 mg 05/16/17 22:00 05/24/17 09:23 Prograf PO 1 mg BID [facility]IKA Administration ASSESSMENT/PLAN: Patient is an 82 year old male with a significant past medical history of CHF, atrial fib, hypertension, renal transplant 10 years ago and ex smoker (quit 20 years ago). He comes to the ED on 05/16/2017 with shortness of breath. Pt states brought in by his son straight from plane, due to persistent shortness of breath. He endorses dyspnea on exertion, bilateral leg swelling, orthopnea, occasional palpitations. Imaging: Chest Ct: Large right lower lobe mass strongly suspicious for malignancy. Core needle biopsy recommended. Mild to moderate COPD which right mid lobe consolidation, bilateral pleural effusions and basilar atelectasis. Mild mediastinal lymphadenopathy. -Shortness of breath CHF exacerbation vs. COPD Monitor respiratory status Monitor I&Os Daily weights Taper off steriods Lasix as per renal Large RLL mass suspicious for malignancy, discussed with Pulm and patient. s/p CT guided, follow up pathology -Atrial fib with RVR Rate controlled, on Eliquis Cardiology following -HTN, chronic On Labetalol -Acute vs. chronic renal failure with Kidney transplant> 10yrs ago Renal transplant rejection? Creatinine rising On Prograf and Cellcept Renal following -+UTI/esbl On meropenem x 3 days per ID -Diabetes, chronic Monitor BGMs F.E.N. Fluids: PO adequate Eectro: monitor Nutrition: diabetic diet Prophy: DVT: on Eliquis GI: deferred Dispo: full code Visit type - Emergency Visit Emergency Visit: Yes ED Registration Date: 05/16/17 Care time: The patient presented to the Emergency Department on the above date and was hospitalized for further evaluation of their emergent condition. - New Patient This patient is new to me today: No - Critical Care Critical Care patient: No - Discharge Referral Referred to [facility] Med P.C.: No
[2017-05-24] MEDS: ATORVASTATIN CA 20 MG TABLET (FP) PO SCH (21:15)
[2017-05-24] MEDS: guaiFENesin/D-M SUGAR-FREE/ACLHOL-FREE 118 ML BOTTLE PO PRN (21:25)
[2017-05-24] MEDS: INSULIN (LEVEMIR) 100 UNITS/ML UNITS SQ SCH (21:25)
[2017-05-25] MEDS: SODIUM BICARBONATE 650 MG TABLET PO SCH ×2 (06:00→14:42)
[2017-05-25] MEDS: INSULIN SLIDING SCALE (NOVOLOG) 1 VIAL SQ SCH ×2 (06:22→12:41)
[2017-05-25 06:50] LABS: HEMOGLOBIN 8.5 GM/dL (11.7-16.9); MCH 25.1 pg (25.7-33.7); MCHC 31.4 g/dl (32.0-35.9); MEAN CELL VOLUME 79.8 fl (80-96); MEAN PLT VOLUME 7.8 fl (7.5-11.1); PLATELET COUNT 233 K/MM3 (134-434); RBC 3.39 M/mm3 (4.00-5.60); RDW 20.6 % (11.9-15.9); WHITE BLOOD COUNT 8.3 K/mm3 (4.0-10.0)
[2017-05-25 07:09] LABS: ADD RBC MORPHOLOGY YES
[2017-05-25 07:16] LABS: ALBUMIN 2.9 g/dl (3.4-5.0); ANION GAP 13 (8-16); CHLORIDE 112 mmol/L (98-107); CO2 19 mmol/L (21-32); GLUCOSE,RANDOM 108 mg/dL (74-106); MAGNESIUM 1.8 mg/dL (1.8-2.4); POTASSIUM 4.5 mmol/L (3.5-5.1); SGOT/AST 43 U/L (15-37); SGPT/ALT 89 U/L (12-78); SODIUM 144 mmol/L (136-145)
[2017-05-25 07:18] LABS: ALK PHOS 84 U/L (45-117); BILIRUBIN,TOTAL 0.4 mg/dL (0.2-1.0); CREATININE 5.7 mg/dL (0.7-1.3); TOT PROT 5.5 g/dl (6.4-8.2)
[2017-05-25 07:21] LABS: BLOOD UREA NITROGEN 148 mg/dL (7-18)
[2017-05-25] MEDS ORDERED: PT OWN MED DRAWER 7, Y5N ONE (08:40)
[2017-05-25 09:21] LABS: ANISOCYTOSIS 2+; OVALOCYTE 1+; PLATELET ESTIMATE NORMAL
[2017-05-25] MEDS: methylPREDNISolone NA SUCC 40 MG/1 ML VIAL IVPUSH SCH (09:42)
[2017-05-25] MEDS: ERTAPENEM SODIUM 0.5 GM in SODIUM CHLORIDE 100 ML IVPB SCH (09:43)
[2017-05-25] MEDS: PANTOPRAZOLE 40 MG TABLET (FP) PO SCH (09:44)
[2017-05-25] MEDS: NIFEdipine E.R. 30 MG TABLET (FP) PO SCH (09:44)
[2017-05-25] MEDS: LABETALOL HCL 100 MG TABLET (FP) PO SCH (09:44)
[2017-05-25] MEDS: FERROUS SO4 325 MG TABLET (FP) PO SCH ×2 (09:44→14:42)
[2017-05-25] MEDS: APIXABAN 2.5 MG TABLET PO SCH (09:44)
[2017-05-25] MEDS: TACROLIMUS ANHYDROUS 1 MG CAPSULE PO SCH (09:45)
[2017-05-25] MEDS: MYCOPHENOLATE MOFETIL 250 MG CAPSULE PO SCH (09:45)
[2017-05-25] MEDS ORDERED: FUROSEMIDE 40 MG/4 ML INJECTABLE VIAL IVPUSH SCH (10:00)
--- NOTE | 2017-05-25 11:56 | PN ---
Progress Note, Physician History of Present Illness: 82 M hx, of CHF, Renal tx 10 years ago, A- Fib On Eliquis, States he has had SOB X 20 days. Also with associated Bilateral LE edema. Denies any chest pain or pressure. States he flew into airport today. Notes he has been complient with his Eliquis. Denies any chest pain or pressure. 82 yo M with PMHx of AF on eliquis (compliant), renal transplant 2007, HLD, HTN , BPH, and IDDM who was transported to the ED from the airport complaining of MCCLURE and cough. The patient was returning from the [facility] [place] and had difficulty breathing at the airport at which point he was brought here by his son. The patient reports having a progressive non-productive cough and shortness of breath for 20 days. The patient reports associated symptom of swelling in the legs b/l.He endorses increased orthopnea requiring 2 pillows at night. Denies increase in salt intake. He receives all of his care at [facility]. He last saw his tube molder fiberglass prior to his trip [place] 1 month ago and he states that at that time his Cr. was 5. The patient denies chest pain , headache, and dizziness. - Current Medication List Current Medications: Active Medications Albuterol/Ipratropium (Duoneb -) 1 amp NEB Q6H PRN PRN Reason: SHORTNESS OF BREATH Last Admin: 05/24/17 20:57 Dose: 1 amp Apixaban (Eliquis -) 2.5 mg PO BID [facility] Last Admin: 05/25/17 09:44 Dose: 2.5 mg Atorvastatin Calcium (Lipitor -) 20 mg PO HS [facility] Last Admin: 05/24/17 21:15 Dose: 20 mg Ferrous Sulfate (Feosol -) 325 mg PO TIDCM [facility] Last Admin: 05/25/17 09:44 Dose: 325 mg Furosemide (Lasix Injection -) 40 mg IVPUSH DAILY [facility] Last Admin: 05/25/17 11:05 Dose: 40 mg Guaifenesin (Diabetic Tussin Dm -) 5 ml PO Q6H PRN PRN Reason: COUGH Last Admin: 05/24/17 21:25 Dose: 5 ml Ertapenem 0.5 gm/ Sodium (Chloride) 100 mls @ 200 mls/hr IVPB DAILY [facility] PRN Reason: Protocol Last Admin: 05/25/17 09:43 Dose: 200 mls/hr Insulin Aspart (Novolog Vial Sliding Scale -) 1 vial SQ ACHS [facility] PRN Reason: Protocol Last Admin: 05/25/17 06:22 Dose: Not Given Insulin Detemir (Levemir Vial) 20 units SQ HS [facility] Last Admin: 05/24/17 21:25 Dose: 20 units Labetalol HCl (Normodyne -) 300 mg PO BID [facility] Last Admin: 05/25/17 09:44 Dose: 300 mg Methylprednisolone Sodium Succinate (Solu-Medrol -) 40 mg IVPUSH DAILY [facility] Last Admin: 05/25/17 09:42 Dose: 40 mg Mycophenolate Mofetil (Cellcept -) 250 mg PO DAILY [facility] Last Admin: 05/25/17 09:45 Dose: 250 mg Nifedipine (Procardia Xl -) 30 mg PO DAILY [facility] Last Admin: 05/25/17 09:44 Dose: 30 mg Pantoprazole Sodium (Protonix -) 40 mg PO DAILY [facility] Last Admin: 05/25/17 09:44 Dose: 40 mg Sodium Bicarbonate (Sodium Bicarbonate -) 650 mg PO TID [facility] Last Admin: 05/25/17 06:00 Dose: 650 mg Tacrolimus (Prograf) 1 mg PO BID [facility] Last Admin: 05/25/17 09:45 Dose: 1 mg - Objective Vital Signs: Vital Signs Temperature 98 F 05/25/17 10:00 Pulse Rate 98 H 05/25/17 10:00 Respiratory Rate 18 05/25/17 10:00 Blood Pressure 150/86 05/25/17 10:00 O2 Sat by Pulse Oximetry (%) 97 05/24/17 20:29 Eyes: Yes: WNL, Conjunctiva Clear, EOM Intact HENT: Yes: WNL, Atraumatic, Normocephalic Neck: Yes: WNL, Supple, Trachea Midline Cardiovascular: Yes: Pulse Irregular, S1, S2 Respiratory: Yes: WNL, Regular, CTA Bilaterally Gastrointestinal: Yes: WNL, Normal Bowel Sounds Genitourinary: Yes: WNL Musculoskeletal: Yes: WNL Extremities: Yes: WNL Edema: No Integumentary: Yes: WNL Neurological: Yes: WNL, Alert, Oriented ...Motor Strength: WNL Psychiatric: Yes: WNL Labs: CBC, BMP 04/20/18 06:25 05/25/17 06:25 INR, PTT INR 1.24 (0.82-1.09) H 05/16/17 00:41 Assessment/Plan Shortness of breath CT with lung mass CHF exacerbation vs. COPD Monitor I&Os Daily weights Lasix as per renal Further work up mass per pulmonary Atrial fibrillation: on Eliquis Rate controlled HTN, chronic: On Labetalol Pulm: COPD, new diagnosis COPD seen on CT Started on stds as per pulm Triny Large RLL mass suspicious for malignancy. s/p CT guided biopsy. Patient agreeing for further workup of potential malignancy Renal Acute vs. chronic renal failure with Kidney transplant> 10yrs ago Renal transplant rejection? On Prograf and Cellcept Creat elevated, unsure of baseline Renal following Tacrolimus levels low normal Bladder/renal us will d/c telemetry. Prophy: DVT: on Eliquis
--- NOTE | 2017-05-25 13:46 | DS ---
Physical Exam: SUBJECTIVE: Patient seen and examined, feels well, in no acute distress. patient requesting new primary care doctor, asking for a referral for [facility] PCP OBJECTIVE: For discharge today Made appointment for patient to follow up with Dr Feliciano on SundayMay 28 @ 2pm Toresemide increased Prednisone taper Completed antibiotics Laboratory Results - last 24 hr Vital Signs Period Temp Pulse Resp BP Sys/Wyatt Pulse Ox Last 24 Hr 97.4 F-98.6 F 96-113 18-20 120-150/65-90 97-97 PHYSICAL EXAM GENERAL: The patient is awake, alert, and fully oriented, in no acute distress HEAD: Normal with no signs of trauma. EYES: PERRL, extraocular movements intact, sclera anicteric, conjunctiva clear. No ptosis. ENT: Ears normal, nares patent, oropharynx clear without exudates, moist mucous membranes. NECK: Trachea midline, full range of motion, supple. LUNGS: mild expiratory wheezing bilaterally, tolerating room air ABDOMEN: Soft, nontender, nondistended, normoactive bowel sounds, no guarding, no rebound, no hepatosplenomegaly, no masses. EXTREMITIES: 2+ pulses, warm, well-perfused, no edema. NEUROLOGICAL: Normal speech, gait not observed. PSYCH: Normal mood, normal affect. SKIN: Warm, dry, normal turgor, no rashes or lesions noted Laboratory Results - last 24 hr LABS Laboratory Results - last 24 hr 05/24/17 05/25/17 05/25/17 21:18 05:55 06:25 WBC RBC Hgb Hct MCV MCH MCHC RDW Plt Count MPV Neutrophils % Neutrophils % (Manual) Band Neutrophils % Lymphocytes % Lymphocytes % (Manual) Monocytes % Monocytes % (Manual) Eosinophils % Eosinophils % (Manual) Basophils % Basophils % (Manual) Myelocytes % (Man) Promyelocytes % (Man) Blast Cells % (Manual) Nucleated RBC % Metamyelocytes Hypochromia Platelet Estimate Polychromasia Anisocytosis Microcytosis Ovalocytes Sodium 144 Potassium 4.5 Chloride 112 H Carbon Dioxide 19 L Anion Gap 13 BUN 148 H* Creatinine 5.7 H Creat Clearance w eGFR 9.65 POC Glucometer 307 91 Random Glucose 108 H Calcium 7.0 L Magnesium 1.8 Total Bilirubin 0.4 AST 43 H D ALT 89 H D Alkaline Phosphatase 84 Total Protein 5.5 L Albumin 2.9 L 04/20/18 04/20/18 06:25 12:35 WBC 8.3 RBC 3.39 L Hgb 8.5 L Hct 27.0 L MCV 79.8 L MCH 25.1 L MCHC 31.4 L RDW 20.6 H Plt Count 233 MPV 7.8 Neutrophils % Call Centre Supervisor Neutrophils % (Manual) 85.0 H Band Neutrophils % 1.0 Lymphocytes % Call Centre Supervisor Lymphocytes % (Manual) 5.0 L Monocytes % Call Centre Supervisor Monocytes % (Manual) 8 Eosinophils % Call Centre Supervisor Eosinophils % (Manual) 1.0 Basophils % Call Centre Supervisor Basophils % (Manual) 0.0 Myelocytes % (Man) 0 Promyelocytes % (Man) 0 Blast Cells % (Manual) 0 Nucleated RBC % 0 Metamyelocytes 0 Hypochromia 1+ Platelet Estimate Normal Polychromasia 1+ Anisocytosis 2+ Microcytosis 1+ Ovalocytes 1+ Sodium Potassium Chloride Carbon Dioxide Anion Gap BUN Creatinine Creat Clearance w eGFR POC Glucometer 127 Random Glucose Calcium Magnesium Total Bilirubin AST ALT Alkaline Phosphatase Total Protein Albumin HOSPITAL COURSE: Date of Admission:05/16/17 Date of Discharge: 05/25/17 ASSESSMENT/PLAN: Patient is an 82 year old male with a significant past medical history of CHF, atrial fib, hypertension, renal transplant 10 years ago and ex smoker (quit 20 years ago). He comes to the ED on 05/16/2017 with shortness of breath. Imaging: Chest Ct: Large right lower lobe mass strongly suspicious for malignancy. Core needle biopsy recommended. Mild to moderate COPD which right mid lobe consolidation, bilateral pleural effusions and basilar atelectasis. Mild mediastinal lymphadenopathy. Pulm/card: Shortness of breath, resolved CHF exacerbation vs. COPD Will taper off steriods on d/c Does not qualify for home oxygen Increase Toresemide to 60mg Large RLL mass suspicious for malignancy, discussed with Pulm and patient. s/p CT guided, follow up pathology with manager multimedia Atrial fib with RVR Rate controlled, on Eliquis HTN, chronic On Labetalol Renal: Acute vs. chronic renal failure with Kidney transplant> 10yrs ago On Prograf and Cellcept Patient to follow up on Sunday with his private physician : +UTI/esbl On meropenem x 3 days (completed) Endo: Diabetes, chronic Monitor BGMs, continue home medications Dispo: full code Minutes to complete discharge: 60 Discharge Summary Reason For Visit: SHORTNESS OF BREATH Current Active Problems JAQUELINE (acute kidney injury) (Acute) Acute on chronic diastolic CHF (congestive heart failure) (Acute) Afib (Acute) Asymptomatic bacteriuria (Acute) Atelectasis of left lung (Acute) CKD (chronic kidney disease) (Acute) Diabetes (Acute) Hyperlipidemia (Acute) Hypomagnesemia (Acute) Pleural effusion (Acute) Proteinuria (Acute) Renal failure (Acute) S/P kidney transplant (Acute) Shortness of breath (Acute) Condition: Improved - Instructions Diet, Activity, Other Instructions: Mr. Grimaldo: Please follow up with your renal specialist on Sunday as we discussed. We have made an appointment for for follow up with Dr Feliciano on SundayMay 28 @ 2pm. Please bring your insurance card. You will also need to follow up with Dr. Garcia for results of the lung biopsy. Please tapero off the Prednisone as follows: May 26, Prednisone 30mg daily May 27, Prednisone 20mg daily May 28 Prednisone 10mg daily, this is your last dose, then continue with your home dose of Prednisone See discharge packet for medications changes. Please continue taking your cellcept and Prograf as you were doing at home. Continue your home diabetic medications. Thank you and please call me with any questions [facility] @ [facility] Referrals: Fabián Garcia MD [Staff Physician] - (please call within 1 week for the results of the Ct biopsy) Kings Monzon MD [Staff Physician] - (You have an appointment on SundayMay 28 @ 2pm. Please bring your insurance card.Dr. Law located at [address] [facility] [place] [address] ) ON STAFF,NOT [Primary Care Provider] - Disposition: HOME - Home Medications Comprehensive Discharge Medication List: Ambulatory Orders Apixaban [Eliquis] 2.5 mg PO DAILY 05/16/17 Epoetin Rich [Procrit] 20,000 unit IJ WEEKLY 05/16/17 Labetalol HCl 300 mg PO TID 05/16/17 Mycophenolate Mofetil [Cellcept -] 250 mg PO BID 05/16/17 Nifedipine [Procardia Xl] 30 mg PO DAILY 05/16/17 Simvastatin 20 mg PO DAILY 05/16/17 Sodium Bicarbonate 10 gr PO BID 05/16/17 Tacrolimus 1 mg PO BID 05/16/17 Tamsulosin HCl [Flomax -] 0.4 mg PO 05/16/17 Torsemide 20 mg PO DAILY 05/16/17 This patient is new to me today: No Emergency Visit: Yes ED Registration Date: 05/16/17 Care time: The patient presented to the Emergency Department on the above date and was hospitalized for further evaluation of their emergent condition. Critical Care patient: No - Discharge Referral Referred to [facility] Med [facility].: No
[2017-05-25 15:27] VITALS: BP 150/77; PULSE 97; TEMP 98.2
--- NOTE | 2017-05-25 15:28 | PN ---
Progress Note, Physician History of Present Illness: Pt seen and examined at bedside. He denies shortness of breath. He still does not want to start HD. He will see his signs sales representative on Sunday. - Current Medication List Current Medications: Active Medications Albuterol/Ipratropium (Duoneb -) 1 amp NEB Q6H PRN PRN Reason: SHORTNESS OF BREATH Last Admin: 05/24/17 20:57 Dose: 1 amp Apixaban (Eliquis -) 2.5 mg PO BID [facility] Last Admin: 05/25/17 09:44 Dose: 2.5 mg Atorvastatin Calcium (Lipitor -) 20 mg PO HS [facility] Last Admin: 05/24/17 21:15 Dose: 20 mg Ferrous Sulfate (Feosol -) 325 mg PO TIDCM [facility] Last Admin: 05/25/17 14:42 Dose: 325 mg Furosemide (Lasix Injection -) 40 mg IVPUSH DAILY [facility] Last Admin: 05/25/17 11:05 Dose: 40 mg Guaifenesin (Diabetic Tussin Dm -) 5 ml PO Q6H PRN PRN Reason: COUGH Last Admin: 05/24/17 21:25 Dose: 5 ml Ertapenem 0.5 gm/ Sodium (Chloride) 100 mls @ 200 mls/hr IVPB DAILY ANIKA PRN Reason: Protocol Last Admin: 05/25/17 09:43 Dose: 200 mls/hr Insulin Aspart (Novolog Vial Sliding Scale -) 1 vial SQ ACHS ANIKA PRN Reason: Protocol Last Admin: 05/25/17 12:41 Dose: Not Given Insulin Detemir (Levemir Vial) 20 units SQ HS [facility] Last Admin: 05/24/17 21:25 Dose: 20 units Labetalol HCl (Normodyne -) 300 mg PO BID [facility] Last Admin: 05/25/17 09:44 Dose: 300 mg Methylprednisolone Sodium Succinate (Solu-Medrol -) 40 mg IVPUSH DAILY [facility] Last Admin: 05/25/17 09:42 Dose: 40 mg Mycophenolate Mofetil (Cellcept -) 250 mg PO DAILY [facility] Last Admin: 05/25/17 09:45 Dose: 250 mg Nifedipine (Procardia Xl -) 30 mg PO DAILY [facility] Last Admin: 05/25/17 09:44 Dose: 30 mg Pantoprazole Sodium (Protonix -) 40 mg PO DAILY [facility] Last Admin: 04/20/18 09:44 Dose: 40 mg Sodium Bicarbonate (Sodium Bicarbonate -) 650 mg PO TID [facility] Last Admin: 05/25/17 14:42 Dose: 650 mg Tacrolimus (Prograf) 1 mg PO BID [facility] Last Admin: 05/25/17 09:45 Dose: 1 mg - Objective Vital Signs: Vital Signs Temperature 98 F 05/25/17 10:00 Pulse Rate 113 H 05/25/17 12:20 Respiratory Rate 18 05/25/17 10:00 Blood Pressure 150/86 05/25/17 10:00 O2 Sat by Pulse Oximetry (%) 97 05/25/17 12:20 Constitutional: Yes: Calm Eyes: Yes: Conjunctiva Clear HENT: Yes: Atraumatic Cardiovascular: Yes: S1, S2 Respiratory: Yes: CTA Bilaterally Gastrointestinal: Yes: Soft Genitourinary: Yes: WNL Musculoskeletal: Yes: WNL Edema: Yes Edema: LLE: 1+, RLE: 1+ Neurological: Yes: Oriented Psychiatric: Yes: Oriented Labs: CBC, BMP 05/25/17 06:25 05/25/17 06:25 INR, PTT INR 1.24 (0.82-1.09) H 05/16/17 00:41 Problem List - Problems (1) JAQUELINE (acute kidney injury) Code(s): N17.9 - ACUTE KIDNEY FAILURE, UNSPECIFIED (2) Acute on chronic diastolic CHF (congestive heart failure) Code(s): I50.33 - ACUTE ON CHRONIC DIASTOLIC (CONGESTIVE) HEART FAILURE Assessment/Plan Current Medications Generic Name Dose Route Start Last Admin Trade Name Freq PRN Reason Stop Dose Admin Albuterol/Ipratropium 1 amp 05/22/17 19:40 05/24/17 20:57 Duoneb - NEB 1 amp Q6H PRN Administration SHORTNESS OF BREATH Apixaban 2.5 mg 05/16/17 10:00 05/25/17 09:44 Eliquis - PO 2.5 mg BID ANIKA Administration Atorvastatin Calcium 20 mg 05/16/17 03:30 05/24/17 21:15 Lipitor - PO 20 mg HS ANIKA Administration Ferrous Sulfate 325 mg 05/22/17 17:30 05/25/17 14:42 Feosol - PO 325 mg TIDCM ANIKA Administration Furosemide 40 mg 05/25/17 10:00 05/25/17 11:05 Lasix Injection - IVPUSH 40 mg DAILY ANIKA Administration Guaifenesin 5 ml 05/18/17 18:05 05/24/17 21:25 Diabetic Tussin Dm - PO 5 ml Q6H PRN Administration COUGH Ertapenem 0.5 gm/ Sodium 100 mls @ 200 mls/hr 05/23/17 13:00 05/25/17 09:43 Chloride IVPB 200 mls/hr DAILY ANIKA Administration Protocol Insulin Aspart 1 vial 05/16/17 07:00 05/25/17 12:41 Novolog Vial Sliding Scale - SQ Not Given ACHS ANIKA Protocol Insulin Detemir 20 units 05/16/17 22:00 05/24/17 21:25 Levemir Vial SQ 20 units HS ANIKA Administration Labetalol HCl 300 mg 05/16/17 10:00 05/25/17 09:44 Normodyne - PO 300 mg BID ANIKA Administration Methylprednisolone Sodium Succinate 40 mg 05/24/17 10:00 05/25/17 09:42 Solu-Medrol - IVPUSH 40 mg DAILY ANIKA Administration Mycophenolate Mofetil 250 mg 05/16/17 10:00 05/25/17 09:45 Cellcept - PO 250 mg DAILY ANIKA Administration Nifedipine 30 mg 05/16/17 10:00 05/25/17 09:44 Procardia Xl - PO 30 mg DAILY ANIKA Administration Pantoprazole Sodium 40 mg 05/19/17 10:00 05/25/17 09:44 Protonix - PO 40 mg DAILY ANIKA Administration Sodium Bicarbonate 650 mg 05/21/17 14:00 05/25/17 14:42 Sodium Bicarbonate - PO 650 mg TID ANIKA Administration Tacrolimus 1 mg 05/16/17 22:00 05/25/17 09:45 Prograf PO 1 mg BID ANIKA Administration Impression 1. CKD 2. kidney transplant 3. dyspnea 4. a-fib 5. fluid overload 6. BPH 7. DM 8. hypomagnesemia 9. anemia 10. asymptomatic bacteruria Plan - will need a higher dose of torsemide - I discussed HD again with him, he does not want to start now - replace calcium - pt on procrit as outpt - pt gave himself a dose of procrit on Sunday - renal diet - cont iron - will follow
[2017-05-25] MEDS ORDERED: CALCIUM 500MG/VIT-D 200 UNITS COMBO TABLET (FP) PO SCH (15:30)
== END 2017-05-25 17:00 | disposition home or self-care (01) | DRG 698 ==
LOC: JER 22:39 → JERBED 05-16 02:25 → OBSVTOIN 05-16 07:00 → J4W 05-16 20:14
PROVIDERS: ADMIT Internal Medicine; ATTEND Nurse Practitioner Family
PROC: 0BBF3ZX Excision of Right Lower Lung Lobe, Percutaneous Approach, Diagnostic (ICD-10-PCS; principal; 2017-05-23)
DX: T86.11 Kidney transplant rejection (principal); I50.33 Acute on chronic diastolic (congestive) heart failure; N17.9 Acute kidney failure, unspecified; J98.11 Atelectasis; N39.0 Urinary tract infection, site not specified; I48.91 Unspecified atrial fibrillation; Z79.01 Long term (current) use of anticoagulants; E78.5 Hyperlipidemia, unspecified; N40.0 Benign prostatic hyperplasia without lower urinary tract symptoms; E11.9 Type 2 diabetes mellitus without complications; Z79.4 Long term (current) use of insulin; I11.0 Hypertensive heart disease with heart failure; D64.9 Anemia, unspecified; E83.42 Hypomagnesemia; R91.8 Other nonspecific abnormal finding of lung field; E87.5 Hyperkalemia; J44.9 Chronic obstructive pulmonary disease, unspecified; R59.0 Localized enlarged lymph nodes; Y83.0 Surgical operation with transplant of whole organ as the cause of abnormal reaction of the patient, or of later complication, without mention of misadventure at the time of the procedure
CPT/HCPCS: 32405; 36415; 71045-TC-FY; 71046-TC-FY; 71250-TC; 76775-TC; 76856-TC; 77012-TC; 80048; 80053; 80061; 80180; 80197; 81003; 81015; 82550; 82553; 82570; 82728; 82962; 83540; 83550; 83721; 83735; 83880; 84100; 84300; 84443; 84484; 84540; 85025; 85027; 85610; 87086; 87186; 93005; 93010; 93306-TC; 93970-TC; 94640; 94761; 99283-25; G0378; J7517; J7620